=== PATIENT | female | born 1950 | race Caucasian/White ===

== ENCOUNTER 2019-10-01 11:29 | Emergency (ER) | payer MEDICARE, SELFPAY ==
[2019-10-01 11:41] VITALS: BP 120/81; PULSE 80; RESP 20; TEMP 36; O2SAT 97
--- NOTE | 2019-10-01 12:04 | ED.NAVMDI ---
HPI - Nausea/Vomiting/Diarrhea General Chief complaint: Nausea/Vomiting/Diarrhea Stated complaint: vomiting, abd cramping Time Seen by Provider: 10/01/19 11:49 History of Present Illness HPI Narrative: Nausea, vomiting, and diarrhea for the past 3 days. No abdominal pain. She has a h/o ileostomy. No weakness, numbness, dysuria, hemauria. Related Data Home Medications Medication Instructions Recorded Confirmed acetaminophen [Tylenol] 650 mg PO BID 10/01/19 gemfibrozil 600 mg PO DAILY 10/01/19 levothyroxine 50 mcg PO DAILY 10/01/19 omega 7-cei-gmk-fish oil [Fish Oil] 1 cap PO DAILY 10/01/19 omeprazole 40 mg PO DAILY 10/01/19 paroxetine HCl 20 mg PO QAM 10/01/19 rosuvastatin 10 mg PO DAILY 10/01/19 Allergies Allergy/AdvReac Type Severity Reaction Status Date / Time codeine AdvReac Rash Verified 10/01/19 11:48 Penicillins AdvReac Rash Verified 10/01/19 11:48 Review of Systems Review of Systems: All systems reviewed & are unremarkable except as noted in HPI and below Constitutional: Constitutional: Denies chills, Denies fever(s) and Denies weakness ENT: Denies sore throat Cardiovascular: Cardiovascular: Denies chest pain Respiratory: Respiratory: Denies dyspnea Gastrointestinal: Gastrointestinal: Denies abdominal pain, Reports diarrhea, Reports nausea and Reports vomiting PMFSH Past Medical History Medical History (Updated 10/01/19 @ 19:15 by West Moreno MD) Diabetes Surgical History Surgical History Ileostomy status Social History Social History Gender identity (if verbalized by the patient): Female Exam Const: General: no acute distress and alert Orientation/consciousness: patient oriented x3 HENMT: Head: normal to inspection Resp: Effort & Inspection: normal respiratory effort Auscultation: clear to auscultation bilaterally Cardio: Rate: regular rate Rhythm: regular rhythm GI: GI Palp: Yes Soft to palpation and No Tenderness to palpation present (GI) Other: ileostomy draining watery stool Skin: General skin exam: normal color Neuro: General: patient oriented x3 and moves all extremities Extrem: General: normal to inspection Course Vital Signs Vital signs: Vital Signs Temperature 36.0 C L 10/01/19 11:41 Pulse Rate 80 10/01/19 11:41 Respiratory Rate 20 10/01/19 11:41 Blood Pressure 120/81 10/01/19 11:41 Pulse Oximetry 97 10/01/19 11:41 Temperature 36.0 C L 10/01/19 11:41 Pulse Rate 83 10/01/19 17:23 Respiratory Rate 16 10/01/19 17:23 Blood Pressure 127/60 10/01/19 17:23 Pulse Oximetry 100 10/01/19 17:23 MDM - Nausea/Vomiting/Diarrhea MDM Narrative Medical decision making narrative: Feeling better with fluids and zofran. Tolerating PO. Creatinine elevated. She does not know her baseline, but she believes that this is not new. Differential Diagnosis Differential diagnosis: Likely gastroenteritis and dehydration Medical Records Attestation: I reviewed the patient's medical records. Lab Data Attestation: I reviewed the patient's lab results. Result diagrams: 10/01/19 12:35 10/01/19 12:35 Labs: Lab Results 10/01/19 10/01/19 10/01/19 Range/Units 12:35 12:35 12:35 WBC 9.2 (4.5-10.0) K/mm3 RBC 5.14 (4.2-5.4) M/mm3 Hgb 14.9 (12.0-15.0) g/dL Hct 46.0 (37.0-47.0) % MCV 89.5 (80-100) fl MCH 29.0 (26-34) pg MCHC 32.4 (32-36) g/dl RDW 13.1 (11.5-14.5) % Plt Count 357 (150-375) k/mm3 MPV 10.1 (7.4-10.4) fl Immature Gran % (Auto) 0.2 (0-0.5) % Neut % (Auto) 81.6 H (45.5-73.1) % Lymph % (Auto) 9.8 L (18.3-44.2) % Banner % (Auto) 7.2 (2.6-8.5) % Eos % (Auto) 0.9 (0-4.4) % Baso % (Auto) 0.3 (0.2-1.2) % Lymph # (Auto) 0.90 (0.9-3.2) K/mm3 Banner # (Auto) 0.7 H (0.1-0.6) K/mm3 Eos # (Auto) 0.1 (0-0.3) K/mm3 Baso # (Auto) 0.0 (0.0-0.1) K/mm3 A
[2019-10-01] MEDS: SODIUM CHLORIDE 0.9% IV 1,000 ML 999 ML IV CONT ×2 (12:42→14:27)
[2019-10-01] MEDS: ONDANSETRON INJ 4 MG/2 ML VIAL IV PUSH (12:43)
[2019-10-01 12:51] LABS: Basophils Percent Auto 0.3 % (0.2-1.2); Eosinophils Absolute Auto 0.1 K/mm3 (0-0.3); Eosinophils Percent Auto 0.9 % (0-4.4); Hemoglobin 14.9 g/dL (12.0-15.0); Immature Granulocyte Absolute 0.02 K/mm3 (0.00-0.031); Immature Granulocyte Percent A 0.2 % (0-0.5); Lymphocytes Percent Auto 9.8 % (18.3-44.2); Mean Corpuscular HGB Conc 32.4 g/dl (32-36); Mean Corpuscular Volume 89.5 fl (80-100); Mean Platelet Volume 10.1 fl (7.4-10.4); Monocytes Absolute Auto 0.7 K/mm3 (0.1-0.6); Monocytes Percent Auto 7.2 % (2.6-8.5); Neutrophils Absolute Auto 7.5 K/mm3 (1.3-6.7); Neutrophils Percent Auto 81.6 % (45.5-73.1); Platelet Count Result 357 k/mm3 (150-375); Red Blood Count 5.14 M/mm3 (4.2-5.4); Red Cell Distribution Width 13.1 % (11.5-14.5); White Blood Count 9.2 K/mm3 (4.5-10.0)
[2019-10-01 13:04] LABS: Alanine Aminotransferase 22 U/L (4-35); Albumin Level 5.5 g/dL (3.5-5.1); Alkaline Phosphatase 137 U/L (38-126); Aspartate Amino Transferase 38 U/L (14-36); Bilirubin,Total 0.5 mg/dL (0.2-1.3); Blood Urea Nitrogen 29 mg/dL (7-17); Calcium 10.5 mg/dL (8.4-10.2); Carbon Dioxide 14 mmol/L (22-30); Chloride 107 mmol/L (98-107); Estimated CRCL calculation 28 ml/min; Estimated Glomerular Filt Rate 28; Glucose 171 mg/dL (65-105); Potassium 4.4 mmol/L (3.4-5.0); Sodium 140 mmol/L (137-145)
[2019-10-01 13:14] LABS: Lipase 153 U/L (23-300)
[2019-10-01 16:14] LABS: Add Urine Microscopic? YES; Appearance Urine Clear (Clear); Bacteria Urine Trace /hpf; Bilirubin Urine Negative (Negative); Blood Urine Negative (Negative); Color Urine Yellow (Yellow); Glucose Urine UA Negative (Negative); Hyaline Casts Urine 30-49 /lpf; Ketones Urine Negative (Negative); Leukocyte Esterase Ur Negative LEU/UL (Negative); Mucus Urine Heavy /lpf; Nitrate Urine Negative (Negative); Protein Urine 2+ mg/dL (Negative); RBC Urine 0-2 /hpf (0-2); Specific Grav Ur 1.026 (1.001-1.035); Squamous Epithelial Cell Urine Occasional /hpf (Few); Urobilinogen Urine Negative mg/dL (<2.0); WBC Urine 0-3 /hpf
[2019-10-01 16:23] VITALS: BP 125/60; PULSE 80; RESP 18; O2SAT 98
[2019-10-01 17:23] VITALS: BP 127/60; PULSE 83; RESP 16; O2SAT 100
== END 2019-10-01 17:23 | disposition home or self-care (01) ==
PROVIDERS: Emergency Provider Emergency Medicine; PCP Family Medicine
DX: K52.9 Noninfective gastroenteritis and colitis, unspecified (principal); E11.9 Type 2 diabetes mellitus without complications; Z93.2 Ileostomy status
CPT/HCPCS: 36415; 80053; 81001; 83690; 85025; 96361; 96374; 99284; J2405; J7030

== ENCOUNTER 2020-01-10 22:10 | Emergency (ER) | payer MEDICARE, SELFPAY ==
[2020-01-10 22:12] VITALS: BP 110/61; PULSE 99; RESP 18; TEMP 36.4; O2SAT 96
[2020-01-10 22:41] VITALS: BP 125/65; PULSE 86
[2020-01-10 22:42] VITALS: BP 102/65; BP 109/81; PULSE 105; PULSE 94
--- NOTE | 2020-01-10 22:47 | ED.NAVMDI ---
HPI - Nausea/Vomiting/Diarrhea General Chief complaint: Nausea/Vomiting/Diarrhea Stated complaint: dehydration Time Seen by Provider: 01/10/20 22:46 History of Present Illness HPI Narrative: Nausea and vomiting since early this afternoon. Not able to tolerate anything PO. Associated with increased watery output from her ileostomy. She tried left over zofran that she had from a similar episode earlier this year, which gave her some relief. No fever, abdominal pain, sick contacts. Related Data Home Medications Medication Instructions Recorded Confirmed acetaminophen [Tylenol] 650 mg PO BID 10/01/19 levothyroxine 50 mcg PO DAILY 10/01/19 omega 0-cbj-huz-fish oil [Fish Oil] 1 cap PO DAILY 10/01/19 omeprazole 40 mg PO DAILY 10/01/19 paroxetine HCl 20 mg PO QAM 10/01/19 rosuvastatin 10 mg PO DAILY 10/01/19 cholecalciferol (vitamin D3) 01/10/20 [Vitamin D3] metformin 500 mg PO DAILY 01/10/20 Allergies Allergy/AdvReac Type Severity Reaction Status Date / Time codeine AdvReac Rash Verified 01/10/20 22:40 Penicillins AdvReac Rash Verified 01/10/20 22:40 Review of Systems Review of Systems: All systems reviewed & are unremarkable except as noted in HPI and below Constitutional: Constitutional: Denies fever(s) and Denies weakness ENT: Reports dizziness Cardiovascular: Cardiovascular: Denies chest pain Respiratory: Respiratory: Denies dyspnea Gastrointestinal: Gastrointestinal: Denies abdominal pain, Reports diarrhea, Reports nausea and Reports vomiting Genitourinary: Genitourinary: Denies dysuria Musculoskeletal: Musculoskeletal: Denies back pain Neurologic: Reports dizziness [facility] Past Medical History Medical History Diabetes Surgical History Surgical History Ileostomy status Social History Social History Gender identity (if verbalized by the patient): Female Exam Const: General: no acute distress and alert Nutritional Appearance: obese Orientation/consciousness: patient oriented x3 HENMT: Head: normal to inspection Resp: Effort & Inspection: normal respiratory effort Auscultation: clear to auscultation bilaterally Cardio: Rate: regular rate Rhythm: regular rhythm GI: GI Palp: Yes Soft to palpation and No Tenderness to palpation present (GI) Skin: General skin exam: normal color Neuro: General: patient oriented x3 and moves all extremities Speech: normal speech Extrem: General: normal to inspection Course Vital Signs Vital signs: Vital Signs Temperature 36.4 C L 01/10/20 22:12 Pulse Rate 99 01/10/20 22:12 Respiratory Rate 18 01/10/20 22:12 Blood Pressure 110/61 01/10/20 22:12 Pulse Oximetry 96 01/10/20 22:12 Temperature 36.6 C 01/11/20 01:53 Pulse Rate 87 01/11/20 01:53 Respiratory Rate 16 01/11/20 01:53 Blood Pressure 129/57 L 01/11/20 01:53 Pulse Oximetry 96 01/11/20 01:53 MDM - Nausea/Vomiting/Diarrhea MDM Narrative Medical decision making narrative: Feeling better after fluids and zofran. tolerating PO. Differential Diagnosis Differential diagnosis: Likely gastroenteritis and dehydration Medical Records Attestation: I reviewed the patient's medical records. Lab Data Attestation: I reviewed the patient's lab results. Result diagrams: 01/10/20 22:53 01/10/20 22:53 Labs: Lab Results 01/10/20 01/10/20 01/11/20 Range/Units 22:53 22:53 00:45 WBC 4.8 (4.5-10.0) K/mm3 RBC 4.87 (4.2-5.4) M/mm3 Hgb 14.6 (12.0-15.0) g/dL Hct 45.5 (37.0-47.0) % MCV 93.4 (80-100) fl MCH 30.0 (26-34) pg MCHC 32.1 (32-36) g/dl RDW 13.0 (11.5-14.5) % Plt Count 304 (150-375) k/mm3 MPV 9.8 (7.4-10.4) fl Immature Gran % (Auto) 0.2 (0-0.5) % Neut % (Auto) 64.5 (45.5-73.1) % Lymph % (Auto
--- NOTE | 2020-01-10 23:02 | PC.NURSE ---
Patient attempted to provide a urine specimen,unsuccessful, states I'm just too nauseous right now. Will attempt again after meds given.
[2020-01-10 23:03] LABS: Basophils Percent Auto 0.2 % (0.2-1.2); Eosinophils Absolute Auto 0.1 K/mm3 (0-0.3); Eosinophils Percent Auto 1.7 % (0-4.4); Hematocrit 45.5 % (37.0-47.0); Hemoglobin 14.6 g/dL (12.0-15.0); Immature Granulocyte Absolute 0.01 K/mm3 (0.00-0.031); Immature Granulocyte Percent A 0.2 % (0-0.5); Lymphocytes Absolute Auto 1.09 K/mm3 (0.9-3.2); Lymphocytes Percent Auto 22.8 % (18.3-44.2); Mean Corpuscular HGB Conc 32.1 g/dl (32-36); Mean Corpuscular Volume 93.4 fl (80-100); Mean Platelet Volume 9.8 fl (7.4-10.4); Monocytes Absolute Auto 0.5 K/mm3 (0.1-0.6); Monocytes Percent Auto 10.6 % (2.6-8.5); Neutrophils Absolute Auto 3.1 K/mm3 (1.3-6.7); Neutrophils Percent Auto 64.5 % (45.5-73.1); Platelet Count Result 304 k/mm3 (150-375); Red Blood Count 4.87 M/mm3 (4.2-5.4); White Blood Count 4.8 K/mm3 (4.5-10.0)
[2020-01-10] MEDS: ONDANSETRON INJ 4 MG/2 ML VIAL IV PUSH (23:04)
[2020-01-10] MEDS: SODIUM CHLORIDE 0.9% IV 1,000 ML 999 ML IV CONT (23:04)
[2020-01-10 23:18] LABS: Alanine Aminotransferase 32 U/L (4-35); Albumin Level 5.2 g/dL (3.5-5.1); Alkaline Phosphatase 138 U/L (38-126); Anion Gap 14 mmol/L (8-16); Aspartate Amino Transferase 56 U/L (14-36); Bilirubin,Total 0.9 mg/dL (0.2-1.3); Blood Urea Nitrogen 26 mg/dL (7-17); Calcium 10.4 mg/dL (8.4-10.2); Carbon Dioxide 21 mmol/L (22-30); Chloride 103 mmol/L (98-107); Estimated CRCL calculation 38 ml/min; Estimated Glomerular Filt Rate 41; Glucose 172 mg/dL (65-105); Lipase 233 U/L (23-300); Potassium 4.3 mmol/L (3.4-5.0); Sodium 138 mmol/L (137-145)
--- NOTE | 2020-01-10 23:28 | PC.NURSE ---
Patient attempted again for urine specimen, unsuccessful. Patient refusing straight cath at this time. Patient stating after more fluids infuse, will attempt again to provide urine specimen.
[2020-01-10 23:58] VITALS: BP 128/58; PULSE 83; RESP 16; O2SAT 95
--- NOTE | 2020-01-11 00:10 | PC.NURSE ---
Patient given water for PO challenge.
--- NOTE | 2020-01-11 00:39 | PC.NURSE ---
Patient tolerated PO challenge well. Patient assisted to the bathroom to provide a urine specimen.
[2020-01-11] MEDS: SODIUM CHLORIDE 0.9% IV 1,000 ML 999 ML IV CONT (00:48)
[2020-01-11 00:51] VITALS: BP 140/66; PULSE 85; RESP 18; O2SAT 95
[2020-01-11 01:18] LABS: Add Urine Microscopic? YES; Appearance Urine Cloudy (Clear); Bacteria Urine Trace /hpf; Bilirubin Urine Negative (Negative); Blood Urine Negative (Negative); Color Urine Yellow (Yellow); Glucose Urine UA Negative (Negative); Hyaline Casts Urine 15-19 /lpf; Ketones Urine Negative (Negative); Leukocyte Esterase Ur Trace LEU/UL (Negative); Mucus Urine Heavy /lpf; Nitrate Urine Negative (Negative); Protein Urine 2+ mg/dL (Negative); RBC Urine 0-2 /hpf (0-2); Specific Grav Ur 1.029 (1.001-1.035); Squamous Epithelial Cell Urine Occasional /hpf (Few); Urobilinogen Urine Negative mg/dL (<2.0)
[2020-01-11 01:53] VITALS: BP 129/57; PULSE 87; RESP 16; TEMP 36.6; O2SAT 96
== END 2020-01-11 01:56 | disposition home or self-care (01) ==
PROVIDERS: Emergency Provider Emergency Medicine; PCP Family Medicine
DX: K52.9 Noninfective gastroenteritis and colitis, unspecified (principal); E11.9 Type 2 diabetes mellitus without complications; Z93.2 Ileostomy status
CPT/HCPCS: 36415; 80053; 81001; 81025; 83690; 85025; 96361; 96374; 99284; J2405; J7030

== ENCOUNTER 2020-01-15 10:52 | Inpatient (IN) | payer MEDICARE, SELFPAY ==
[2020-01-15] VITALS (8 sets, daily range): BP systolic 82–159; BP diastolic 62–80; PULSE 58–122; RESP 12–23; TEMP 36.1–36.2; O2SAT 95–100; BMI 25.9
--- NOTE | ~2020-01-15 | CT_ITS ---
EXAMINATION: CT abdomen pelvis wo con DATE: 01/15/2020 12:57 INDICATION: Enteritis. Pancreatitis. TECHNIQUE: Computed tomography (CT) of the abdomen and pelvis was performed without intravenous contr ast. Automated exposure control and iterative reconstruction technique were employed. The dose-length product was 391.22 mGy-cm. COMPARISON: None FINDINGS: Small calcified nodules at the lingula and right middle lobe consistent with old granulomatous diseas e. Heart size is normal. No pericardial or pleural effusion. Cholecystectomy clips the gallbladder fo ssa. 11 mm low-attenuation cyst versus focal hepatic steatosis at the periphery of segment IVb of the liver. Spleen, pancreas, bilateral adrenal glands and kidneys are normal. Postoperative change of pr ior colectomy with right lower quadrant end ileostomy. Soft tissue density likely representing postop erative scarring surrounding a suture line and surgical clips in the presacral space. No bowel obstru ction. Bladder, uterus and bilateral adnexa are unremarkable. No free intraperitoneal gas or fluid. N o pathologically enlarged abdominal or pelvic lymphadenopathy. Partially visualized left total hip ar throplasty with intertrochanteric cerclage wire. Mild thoracolumbar dextrocurvature with severe spond ylosis at L2-L3. IMPRESSION: 1. No evident acute intra-abdominal/pelvic process. 2. Postoperative change of prior colectomy with right lower quadrant end ileostomy and soft tissue de nsities in the presacral space likely representing postoperative scarring although residual/recurrent malignancy cannot be excluded in the appropriate clinical setting and without prior imaging for comp arison. Reviewed, dictated and finalized at location A. IMPRESSION: 1. No evident acute intra-abdominal/pelvic process. 2. Postoperative change of prior colectomy with right lower quadrant end ileost jen and soft tissue densities in the presacral space likely representing postop erative scarring although residual/recurrent malignancy cannot be excluded in t he appropriate clinical setting and without prior imaging for comparison.
[2020-01-15 11:48] LABS: Basophils Absolute Auto 0.1 K/mm3 (0.0-0.1); Basophils Percent Auto 0.8 % (0.2-1.2); Eosinophils Absolute Auto 0.1 K/mm3 (0-0.3); Eosinophils Percent Auto 0.6 % (0-4.4); Hematocrit 44.8 % (37.0-47.0); Hemoglobin 15.3 g/dL (12.0-15.0); Immature Granulocyte Absolute 0.07 K/mm3 (0.00-0.031); Immature Granulocyte Percent A 0.7 % (0-0.5); Lymphocytes Absolute Auto 1.44 K/mm3 (0.9-3.2); Lymphocytes Percent Auto 13.6 % (18.3-44.2); Mean Corpuscular HGB Conc 34.2 g/dl (32-36); Mean Corpuscular Hemoglobin 30.6 pg (26-34); Mean Corpuscular Volume 89.6 fl (80-100); Mean Platelet Volume 10.2 fl (7.4-10.4); Monocytes Absolute Auto 1.2 K/mm3 (0.1-0.6); Monocytes Percent Auto 11.3 % (2.6-8.5); Neutrophils Absolute Auto 7.8 K/mm3 (1.3-6.7); Platelet Count Result 359 k/mm3 (150-375); Red Cell Distribution Width 12.4 % (11.5-14.5); White Blood Count 10.6 K/mm3 (4.5-10.0)
--- NOTE | 2020-01-15 11:51 | PC.NURSE ---
Lab called at this time and requests more urine to run sample due to not enough at this time.
[2020-01-15 12:01] LABS: Alanine Aminotransferase 43 U/L (4-35); Albumin Level 5.4 g/dL (3.5-5.1); Alkaline Phosphatase 193 U/L (38-126); Anion Gap 18 mmol/L (8-16); Aspartate Amino Transferase 46 U/L (14-36); Bilirubin,Total 0.7 mg/dL (0.2-1.3); Blood Urea Nitrogen 54 mg/dL (7-17); Calcium 11.3 mg/dL (8.4-10.2); Carbon Dioxide 15 mmol/L (22-30); Chloride 102 mmol/L (98-107); Estimated CRCL calculation 34 ml/min; Estimated Glomerular Filt Rate 35; Glucose 171 mg/dL (65-105); Potassium 4.6 mmol/L (3.4-5.0); Sodium 135 mmol/L (137-145)
[2020-01-15 12:10] LABS: Lipase 3043 U/L (23-300)
[2020-01-15] MEDS: SODIUM CHLORIDE 0.9% IV 1,000 ML 999 ML IV CONT (12:59)
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
[2020-01-15 14:43] LABS: Add Urine Microscopic? YES; Appearance Urine Clear (Clear); Bilirubin Urine Negative (Negative); Blood Urine 1+ (Negative); Color Urine Yellow (Yellow); Glucose Urine UA Negative (Negative); Hyaline Casts Urine 30-49 /lpf; Ketones Urine Trace mg/dL (Negative); Leukocyte Esterase Ur Negative LEU/UL (Negative); Mucus Urine Rare /lpf; Nitrate Urine Negative (Negative); Protein Urine 2+ mg/dL (Negative); RBC Urine 0-2 /hpf (0-2); Specific Grav Ur 1.018 (1.001-1.035); Urobilinogen Urine Negative mg/dL (<2.0); WBC Urine 0-3 /hpf
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
--- NOTE | 2020-01-15 17:30 | ADMGEN ---
This patient, Mariya Villanueva, was admitted to Medical Room 249-01. Patient/family oriented to hospital policies and general routines including ID bracelet, bed and alarms, visiting hours, pain management, procedures, bathroom and other care routines, personal items, smoking policy, room service/diet, and visiting hours. Valuables list has been completed. Information on how to activate the Rapid Response Team has been discussed. Patient/Family are encouraged to report perceived risks to care and to ask questions if they do not understand what they are told or what they should do.
[2020-01-15] MEDS: SODIUM CHLORIDE 0.9% IV 1,000 ML 125 ML IV CONT (17:49)
[2020-01-15 21:48] LABS: Anion Gap 11 mmol/L (8-16); Blood Urea Nitrogen 40 mg/dL (7-17); Calcium 9.6 mg/dL (8.4-10.2); Carbon Dioxide 18 mmol/L (22-30); Chloride 106 mmol/L (98-107); Creatine Kinase 158 U/L (30-135); Estimated CRCL calculation 42 ml/min; Estimated Glomerular Filt Rate 55; Glucose 125 mg/dL (65-105); Magnesium 1.6 mg/dL (1.6-2.3); Potassium 3.9 mmol/L (3.4-5.0); Sodium 135 mmol/L (137-145)
[2020-01-15 21:51] LABS: Lipase 3775 U/L (23-300)
[2020-01-15 22:41] LABS: Hemoglobin A1C 5.8 % (<5.7)
[2020-01-15 22:43] LABS: Lactic Acid Reflex 0.6 mmol/L (0.7-2.1)
[2020-01-15 23:33] LABS: Glucose Point of Care 126 (65-105)
[2020-01-15 23:51] LABS: Free T4 Free Thyroxine Reflex 0.86 ng/dL (0.78-2.19)
[2020-01-15 23:53] LABS: IFOB Positive Control Positive; Immunochemical Fecal Occult Bl Negative (N)
[2020-01-16] MEDS: SODIUM CHLORIDE 0.9% IV 1,000 ML 125 ML IV CONT ×3 (02:00→20:04)
[2020-01-16 03:28] LABS: Total Triiodothyronine (T3) 0.74 NG/ML (0.97-1.69)
[2020-01-16 05:39] LABS: Basophils Percent Auto 0.5 % (0.2-1.2); Eosinophils Absolute Auto 0.1 K/mm3 (0-0.3); Eosinophils Percent Auto 2.2 % (0-4.4); Hematocrit 33.6 % (37.0-47.0); Immature Granulocyte Absolute 0.04 K/mm3 (0.00-0.031); Immature Granulocyte Percent A 0.7 % (0-0.5); Lymphocytes Absolute Auto 1.56 K/mm3 (0.9-3.2); Lymphocytes Percent Auto 28.2 % (18.3-44.2); Mean Corpuscular HGB Conc 32.7 g/dl (32-36); Mean Corpuscular Hemoglobin 30.5 pg (26-34); Mean Corpuscular Volume 93.1 fl (80-100); Mean Platelet Volume 10.5 fl (7.4-10.4); Monocytes Absolute Auto 0.7 K/mm3 (0.1-0.6); Monocytes Percent Auto 12.3 % (2.6-8.5); Neutrophils Absolute Auto 3.1 K/mm3 (1.3-6.7); Neutrophils Percent Auto 56.1 % (45.5-73.1); Platelet Count Result 218 k/mm3 (150-375); Red Blood Count 3.61 M/mm3 (4.2-5.4); Red Cell Distribution Width 12.3 % (11.5-14.5); White Blood Count 5.5 K/mm3 (4.5-10.0)
[2020-01-16 05:59] LABS: Alanine Aminotransferase 24 U/L (4-35); Alkaline Phosphatase 108 U/L (38-126); Anion Gap 10 mmol/L (8-16); Aspartate Amino Transferase 30 U/L (14-36); Bilirubin,Total 0.3 mg/dL (0.2-1.3); Blood Urea Nitrogen 34 mg/dL (7-17); Calcium 9.1 mg/dL (8.4-10.2); Carbon Dioxide 16 mmol/L (22-30); Chloride 109 mmol/L (98-107); Estimated CRCL calculation 46 ml/min; Estimated Glomerular Filt Rate > 60; Glucose 111 mg/dL (65-105); Potassium 3.7 mmol/L (3.4-5.0); Sodium 135 mmol/L (137-145)
[2020-01-16 06:00] VITALS: BP 122/50; PULSE 72; RESP 20; TEMP 37; O2SAT 98
[2020-01-16] MEDS: LEVOTHYROXINE SODIUM 50 MCG TABLET PO (06:30)
[2020-01-16 06:34] LABS: Glucose Point of Care 103 (65-105)
[2020-01-16 07:24] LABS: Lipase 4072 U/L (23-300)
[2020-01-16] MEDS: PANTOPRAZOLE 40 MG TABLET PO ×2 (08:18→20:04)
[2020-01-16] MEDS: PARoxetine 20 MG TABLET PO (08:18)
--- NOTE | 2020-01-16 11:09 | PM.IMPN ---
Progress Note: A&P Assessment and Plan (1) Pancreatitis: Code(s): K85.90 - Acute pancreatitis without necrosis or infection, unspecified Status: Acute Assessment and Plan: She denied have any abdominal pain or epigastric pain but did have nausea, vomiting, and diarrhea. Lipase markedly elevated at 3775 at presentation. Increased today to 4072. She is s/p cholecystectomy approximately 10 years ago. LFTs within normal limits. Denies frequent alcohol use, last drink was 1 glass of wine several weeks ago. No leukocytosis. Afebrile. She was NPO overnight. Feeling much better today and would like to try clear liquids. Monitor for symptoms and return to NPO if worsened abdominal pain, nausea, or vomiting. Supportive care with IV fluids and analgesics as needed Trend lipase, check triglycerides (2) Dehydration: Code(s): E86.0 - Dehydration Status: Acute Assessment and Plan: Secondary to poor appetite due to ongoing nausea, vomiting, and increased ostomy output. Related to pancreatitis as above. Continue gentle IV fluid rehydration. Patient appears euvolemic on exam today. (3) Hypotension: Qualifiers: Hypotension type: hypotension due to hypovolemia Qualified Code(s): I95.89 - Other hypotension; E86.1 - Hypovolemia Code(s): I95.9 - Hypotension, unspecified Status: Acute Assessment and Plan: blood pressure low at 80 2/73 upon presentation. This is secondary to dehydration and volume depletion. She is not on any antihypertensives. BP has improved with IV fluids. BP reviewed today and stable in the 120s systolic. Continue IV fluids as above monitor blood pressure daily (4) Hypothyroidism: Code(s): E03.9 - Hypothyroidism, unspecified Status: Acute Assessment and Plan: TSH elevated at 8.2, T3 mildly decreased, T4 wnl. she reports she had not taken her levothyroxine and several days secondary to nausea and vomiting. Resume p.o. levothyroxine at home dose. Will not make any dose adjustments at this time. (5) Type 2 diabetes mellitus: Code(s): E11.9 - Type 2 diabetes mellitus without complications Status: Acute Assessment and Plan: A1c is 5.8. She is on metformin at home. Blood sugars reviewed and are well controlled. Continue sliding scale insulin, Accu-Cheks, and hypoglycemic protocol. Hold metformin (6) Chronic kidney disease, stage 3: Code(s): N18.3 - Chronic kidney disease, stage 3 (moderate) Status: Acute Assessment and Plan: Patient reports chronic, mild renal insufficiency. creatinine 1.5 at presentation and has improved to 0.9 today with IV fluids. Suspect acute on chronic given dehydration. Continue IV fluids and monitor renal function. Renally dose medications and avoid nephrotoxic agents (7) Ulcerative colitis: Code(s): K51.90 - Ulcerative colitis, unspecified, without complications Status: Acute Assessment and Plan: Status post right colectomy with ileostomy in 1970. CT of the abdomen and pelvis At presentation showed soft tissue densities which may be postoperative scarring however we do not have any prior imaging for comparison. she noted increased output from ileostomy the past several days but believes this is improving. request have been submitted to obtain prior records gastroenterology has been consulted recommendations are appreciated (8) Low bicarbonate level: Code(s): E87.8 - Other disorders of electrolyte and fluid balance, not elsewhere classified Status: Acute Assessment and Plan: No anion gap. Most likely related to GI loss from ongoing diarrhea. No prior history of pancreatitis and thus fistula less likely. Lactic is within normal limits. Levels remain low, but suspect improvement with time as N/V has resolved and ileostomy output has lessened. Monitor bicarbonate levels at this
[2020-01-16 11:34] LABS: Glucose Point of Care 110 (65-105)
[2020-01-16 13:22] VITALS: BP 115/61; PULSE 73; RESP 18; TEMP 36.4; O2SAT 99
--- NOTE | 2020-01-16 13:30 | WPDGICN ---
Assessment and Plan Assessment and plan (1) Pancreatitis: Code(s): K85.90 - Acute pancreatitis without necrosis or infection, unspecified Status: Acute Assessment and Plan: denies previous episode, no abdominal pain and she is feeling better. Still does not want to try to eat, probably tomorrow will start liquid diet and advance as tolerated she already had cholecystectomy, on admission only mild elevated transaminases but repeat normalized, also normal bili, CT scan normal bile duct size. continue with supportive care (2) Nausea and vomiting in adult: Code(s): R11.2 - Nausea with vomiting, unspecified Status: Acute Assessment and Plan: antiemetics prn, start liquid diet when she feels like it (3) Dehydration: Code(s): E86.0 - Dehydration Status: Acute Assessment and Plan: improved (4) Ulcerative colitis: Code(s): K51.90 - Ulcerative colitis, unspecified, without complications Status: Acute Assessment and Plan: colectomy more than 40 years ago with ileostomy she is not on any treatment (5) Chronic kidney disease, stage 3: Code(s): N18.3 - Chronic kidney disease, stage 3 (moderate) Status: Acute (6) Ileostomy in place: Code(s): Z93.2 - Ileostomy status Status: Acute Assessment and Plan: had more output that caused dehydration. continue to monitor GI Consult Note Consult date/time: 01/16/20 13:30 Reason for consult: diarrhea, N/V HPI: Mariya Villanueva is a 69 year old female with history of type 2 diabetes mellitus, chronic kidney disease creat 1-1.5, GERD, ulcerative colitis that required colectomy with ileostomy about 40 years ago when she had colon perforation, also history of cholecystectomy. She came initially to the emergency department on January 09 because nausea, vomiting and more output through her ostomy, diagnosed with dehydration and gastroenteritis, treated with antiemetics and IV fluids. She went back home but started feeling sick again with more nausea, vomiting, and increased ileostomy output again, also generalized weakness and feeling lightheaded. Denies any abdominal pain. Blood work consistent with dehydration, also was hemoconcentrated with hb 15.3, creat 1.5 (after fluids 0.9), also lipase 4000 and diagnosed with pancreatitis, CT a/p no acute findings other than postoperative change of prior colectomy with right lower quadrant end ileostomy. Now she is npo and feeling better. Review of Systems Constitutional: Constitutional: Reports lethargy Eyes: Eyes: Denies blurry vision ENT: Reports Normal hearing present, Denies headache(s) and Denies neck pain Cardiovascular: Cardiovascular: Denies chest pain and Denies dyspnea Respiratory: Respiratory: Denies dyspnea Gastrointestinal: Gastrointestinal: Reports nausea and Reports vomiting Genitourinary: Genitourinary: Denies dysuria Musculoskeletal: Musculoskeletal: Denies neck pain Integumentary/Breasts: Skin/Breast: Denies dry skin Neurologic: Reports Normal hearing present, Denies headache(s) and Denies weakness Psychiatric: Psychiatric: Denies anxiety Endocrine: Endocrine: Denies change in body appearance Hematologic/Lymphatic: Hematologic/Lymphatic: Denies easy bleeding Allergic/Immunologic: Allergic/Immunologic: Denies urticaria PMFSH Past Medical History Medical History (Updated 01/16/20 @ 14:34 by Alberto Rowe MD) Chronic kidney disease, stage 3 Gastroesophageal reflux disease Hypothyroidism Ileostomy in place Nausea and vomiting in adult Obstructive sleep apnea on CPAP Type 2 diabetes mellitus Ulcerative colitis Surgical History Surgical History (Updated 01/15/20 @ 20:41 by Avril Quispe PA-C) History of cataract extraction History of cholecystectomy History of left hip replacement History of left knee replacement History of partial colectomy (~1970) Right hemicolectomy with ileostomy for treatm
[2020-01-16 17:00] LABS: Glucose Point of Care 106 (65-105)
[2020-01-16 20:22] LABS: Glucose Point of Care 87 (65-105)
[2020-01-16 21:38] VITALS: BP 129/53; PULSE 79; RESP 16; TEMP 36.4; O2SAT 98
[2020-01-17 06:00] VITALS: BP 116/52; PULSE 70; RESP 16; TEMP 36.4; O2SAT 97
[2020-01-17 06:08] LABS: Alanine Aminotransferase 20 U/L (4-35); Albumin Level 3.6 g/dL (3.5-5.1); Alkaline Phosphatase 90 U/L (38-126); Anion Gap 5 mmol/L (8-16); Aspartate Amino Transferase 27 U/L (14-36); Bilirubin,Total 0.2 mg/dL (0.2-1.3); Blood Urea Nitrogen 14 mg/dL (7-17); Calcium 8.7 mg/dL (8.4-10.2); Carbon Dioxide 21 mmol/L (22-30); Chloride 112 mmol/L (98-107); Cholesterol 136 mg/dL (0-200); Estimated CRCL calculation 58 ml/min; Estimated Glomerular Filt Rate > 60; Glucose 96 mg/dL (65-105); HDL Direct 29 mg/dL; Magnesium 1.6 mg/dL (1.6-2.3); Potassium 3.8 mmol/L (3.4-5.0); Sodium 138 mmol/L (137-145); Triglycerides 161 mg/dL (<150)
[2020-01-17 06:09] LABS: Basophils Percent Auto 0.5 % (0.2-1.2); Eosinophils Absolute Auto 0.1 K/mm3 (0-0.3); Hematocrit 30.6 % (37.0-47.0); Hemoglobin 9.9 g/dL (12.0-15.0); Immature Granulocyte Absolute 0.02 K/mm3 (0.00-0.031); Immature Granulocyte Percent A 0.5 % (0-0.5); Lymphocytes Absolute Auto 1.43 K/mm3 (0.9-3.2); Lymphocytes Percent Auto 35.8 % (18.3-44.2); Mean Corpuscular HGB Conc 32.4 g/dl (32-36); Mean Corpuscular Hemoglobin 29.6 pg (26-34); Mean Corpuscular Volume 91.6 fl (80-100); Mean Platelet Volume 10.1 fl (7.4-10.4); Monocytes Absolute Auto 0.4 K/mm3 (0.1-0.6); Neutrophils Percent Auto 50.2 % (45.5-73.1); Platelet Count Result 179 k/mm3 (150-375); Red Blood Count 3.34 M/mm3 (4.2-5.4); Red Cell Distribution Width 12.3 % (11.5-14.5)
[2020-01-17 06:11] LABS: LDL Cholesterol Direct 70 mg/dL; Lipase 2224 U/L (23-300)
[2020-01-17] MEDS: LEVOTHYROXINE SODIUM 50 MCG TABLET PO (06:34)
[2020-01-17 07:51] LABS: Glucose Point of Care 92 (65-105)
[2020-01-17] MEDS: PANTOPRAZOLE 40 MG TABLET PO ×2 (08:10→20:00)
[2020-01-17] MEDS: PARoxetine 20 MG TABLET PO (08:10)
[2020-01-17] MEDS: ENOXAPARIN 30 MG/0.3 ML SYRINGE SUB-Q (08:11)
[2020-01-17 11:32] LABS: Glucose Point of Care 95 (65-105)
--- NOTE | 2020-01-17 12:11 | PM.IMPN ---
Progress Note: A&P Assessment and Plan (1) Pancreatitis: Code(s): K85.90 - Acute pancreatitis without necrosis or infection, unspecified Status: Acute Assessment and Plan: She denied have any abdominal pain or epigastric pain but did have nausea, vomiting, and diarrhea. Lipase markedly elevated at 3775 at presentation; decreased to 2224. She is s/p cholecystectomy approximately 10 years ago. LFTs within normal limits. Triglycerides mildly elevated at 161. Denies frequent alcohol use, last drink was 1 glass of wine several weeks ago. No leukocytosis (4.0k today). Afebrile. Tolerating CLD thus far; wishing to advance diet. Discussed case with Dr. Moya Will advance diet as tolerated; if continued clinical improvement, will consider discharge in 1-2 days Will stop IV fluids as she is tolerating PO Continue analgesics as needed Trend lipase (2) Dehydration: Code(s): E86.0 - Dehydration Status: Acute Assessment and Plan: Secondary to poor appetite due to ongoing nausea, vomiting, and increased ostomy output. Related to pancreatitis as above. Patient appears euvolemic on exam today. D/c IV fluids as above (3) Hypotension: Qualifiers: Hypotension type: hypotension due to hypovolemia Qualified Code(s): I95.89 - Other hypotension; E86.1 - Hypovolemia Code(s): I95.9 - Hypotension, unspecified Status: Acute Assessment and Plan: blood pressure low at 82/73 upon presentation. This is secondary to dehydration and volume depletion. She is not on any antihypertensives. BP has improved with IV fluids. BP reviewed today and stable in the 110s systolic. Will d/c IV fluids as above monitor blood pressure daily (4) Hypothyroidism: Code(s): E03.9 - Hypothyroidism, unspecified Status: Acute Assessment and Plan: TSH elevated at 8.2, T3 mildly decreased, T4 wnl. she reports she had not taken her levothyroxine and several days secondary to nausea and vomiting. Resume p.o. levothyroxine at home dose. Will not make any dose adjustments at this time. (5) Type 2 diabetes mellitus: Code(s): E11.9 - Type 2 diabetes mellitus without complications Status: Acute Assessment and Plan: A1c is 5.8. She is on metformin at home. Blood sugars reviewed and are well controlled. Continue sliding scale insulin, Accu-Cheks, and hypoglycemic protocol. Hold metformin (6) Chronic kidney disease, stage 3: Code(s): N18.3 - Chronic kidney disease, stage 3 (moderate) Status: Acute Assessment and Plan: Patient reports chronic, mild renal insufficiency. creatinine 1.5 at presentation and has improved to 0.8 today with IV fluids. Suspect acute on chronic given dehydration. Will stop IV fluids as above monitor renal function. Renally dose medications and avoid nephrotoxic agents (7) Ulcerative colitis: Code(s): K51.90 - Ulcerative colitis, unspecified, without complications Status: Acute Assessment and Plan: Status post right colectomy with ileostomy in 1970. CT of the abdomen and pelvis At presentation showed soft tissue densities which may be postoperative scarring however we do not have any prior imaging for comparison. she noted increased output from ileostomy the past several days but believes this is improving/resolved today request have been submitted to obtain prior records gastroenterology has been consulted recommendations are appreciated (8) Low bicarbonate level: Code(s): E87.8 - Other disorders of electrolyte and fluid balance, not elsewhere classified Status: Acute Assessment and Plan: No a
[2020-01-17 12:47] LABS: Glucose Point of Care 115 (65-105)
--- NOTE | 2020-01-17 12:47 | WPDGIPROGNO ---
Progress Note: A&P Assessment and Plan (1) Pancreatitis: Code(s): K85.90 - Acute pancreatitis without necrosis or infection, unspecified Status: Acute Assessment and Plan: she is doing much better, no more nausea, no pain will advance diet and if she is tolerating then can go home tomorrow lipase 2k TG levels normal, also normal liver enzymes (2) Nausea and vomiting in adult: Code(s): R11.2 - Nausea with vomiting, unspecified Status: Acute Assessment and Plan: resolved, will advance diet (3) Ulcerative colitis: Code(s): K51.90 - Ulcerative colitis, unspecified, without complications Status: Acute Assessment and Plan: colectomy with ileostomy years ago (4) Ileostomy in place: Code(s): Z93.2 - Ileostomy status Status: Acute (5) Dehydration: Code(s): E86.0 - Dehydration Status: Acute Assessment and Plan: resolved Subjective Date/time seen: 01/17/20 12:47 Interval history: no more nausea, tolerating liquid diet. Normal output throught ostomy, back to her baseline. Review of Systems Review of Systems: All systems reviewed & are unremarkable except as noted in HPI and below Exam Const: General: comfortable, no acute distress and alert Nutritional Appearance: obese Orientation/consciousness: patient oriented x3 HENMT: Head: normal to inspection General nose exam: Normal nares present Eyes: General: appearance normal, both eyes and all related structures Neck: Neck: supple Resp: Effort & Inspection: normal respiratory effort Auscultation: clear to auscultation bilaterally Cardio: Rate: regular rate Rhythm: regular rhythm GI: GI Palp: Yes Soft to palpation, No Tenderness to palpation present (GI) and No Guarding due to palpation present (GI) Auscultation: normal bowel sounds Other: ostomy right side, stool in bag Skin: General skin exam: normal color Neuro: General: patient oriented x3 and moves all extremities Speech: normal speech Extrem: General: normal to inspection Psych: Affect: normal affect Objective Data Vital Signs Vital Signs: Vital Signs - 24 hr 01/16/20 13:22 01/16/20 21:38 01/17/20 06:00 Temperature 97.5 F L 97.6 F 97.6 F Pulse Rate 73 79 70 Respiratory Rate 18 16 16 Blood Pressure 115/61 129/53 L 116/52 L Pulse Oximetry 99 98 97 Intake/Output Intake/Output: Intake & Output 01/14/20 01/15/20 01/16/20 01/17/20 23:59 23:59 23:59 23:59 Intake Total 1460 4100 510 Output Total 1875 850 Balance 1460 2225 -340 Meds/Results Medications: Active Medications Generic Name Dose Route Start Last Admin Trade Name Freq PRN Reason Stop Dose Admin Acetaminophen 650 mg 01/17/20 07:13 Tylenol Tablet PO Q6H PRN Pain or Fever Dextrose 12.5 gm 01/15/20 20:34 Dextrose 50% Syringe IV PUSH PRN PRN Hypoglycemia Protocol Enoxaparin Sodium 30 mg 01/17/20 09:00 01/17/20 08:11 Lovenox SUB-Q 30 mg DAILY GAUTAM Administration Glucagon 1 mg 01/15/20 20:34 Glucagon For Inj IM PRN PRN Hypoglycemia Protocol Glucose 15 gm 01/15/20 20:34 Glutose 15 PO PRN PRN Hypoglycemia Protocol Dextrose 1,000 mls @ 100 mls/hr 01/15/20 20:34 Dextrose 5% 1,000 Ml IVPB PRN PRN Hypoglycemia Protocol Insulin Aspart 2 - 5 units 01/16/20 08:00 01/17/20 12:00 Novolog SUB-Q Not Given TIDWM GAUTAM Protocol Levothyroxine Sodium 50 mcg 01/16/20 06:30 01/17/20 06:34 Synthroid PO 50 mcg DAILY@0630 GAUTAM Administration Ondansetron HCl 4 mg 01/15/20 14:51 Zofran Inj IV PUSH Q4H PRN Nausea Pantoprazole Sodium 40 mg 01/16/20 09:00 01/17/20 08:10 Protonix PO 40 mg Q12HR GAUTAM Administration Paroxetine HCl 20 mg 01/16/20 09:00 01/17/20 08:10 Paxil PO 20 mg QAM GAUTAM Administration Radiology Results: ITS Impressions Abdomen/Pelvis CT 01/15/20 12:58
[2020-01-17 14:00] VITALS: BP 107/46; PULSE 72; RESP 18; TEMP 36.7; O2SAT 98
[2020-01-17 16:31] LABS: Glucose Point of Care 104 (65-105)
[2020-01-17 21:14] LABS: Glucose Point of Care 124 (65-105)
[2020-01-17 21:27] VITALS: BP 138/55; PULSE 72; RESP 16; TEMP 37.2; O2SAT 97
[2020-01-18] MEDS: LEVOTHYROXINE SODIUM 50 MCG TABLET PO (05:36)
[2020-01-18 06:00] VITALS: BP 136/63; PULSE 78; RESP 16; TEMP 36.9; O2SAT 96
[2020-01-18 06:13] LABS: Hematocrit 35.3 % (37.0-47.0); Hemoglobin 11.9 g/dL (12.0-15.0); Mean Corpuscular HGB Conc 33.7 g/dl (32-36); Mean Corpuscular Hemoglobin 30.7 pg (26-34); Mean Platelet Volume 10.1 fl (7.4-10.4); Platelet Count Result 253 k/mm3 (150-375); Red Blood Count 3.88 M/mm3 (4.2-5.4); Red Cell Distribution Width 12.3 % (11.5-14.5); White Blood Count 5.7 K/mm3 (4.5-10.0)
[2020-01-18 06:36] LABS: Alanine Aminotransferase 24 U/L (4-35); Albumin Level 4.4 g/dL (3.5-5.1); Alkaline Phosphatase 106 U/L (38-126); Anion Gap 9 mmol/L (8-16); Aspartate Amino Transferase 30 U/L (14-36); Bilirubin,Total 0.3 mg/dL (0.2-1.3); Blood Urea Nitrogen 12 mg/dL (7-17); Calcium 9.8 mg/dL (8.4-10.2); Carbon Dioxide 22 mmol/L (22-30); Chloride 107 mmol/L (98-107); Estimated CRCL calculation 58 ml/min; Estimated Glomerular Filt Rate > 60; Glucose 126 mg/dL (65-105); Lipase 1770 U/L (23-300); Magnesium 1.4 mg/dL (1.6-2.3); Potassium 3.7 mmol/L (3.4-5.0); Sodium 138 mmol/L (137-145)
[2020-01-18 07:36] LABS: Glucose Point of Care 118 (65-105)
[2020-01-18] MEDS: PANTOPRAZOLE 40 MG TABLET PO (09:16)
[2020-01-18] MEDS: ENOXAPARIN 30 MG/0.3 ML SYRINGE SUB-Q (09:16)
[2020-01-18] MEDS: PARoxetine 20 MG TABLET PO (09:17)
--- NOTE | 2020-01-18 10:00 | WPDGIPROGNO ---
Progress Note: A&P Assessment and Plan (1) Pancreatitis: Code(s): K85.90 - Acute pancreatitis without necrosis or infection, unspecified Status: Acute Assessment and Plan: now she is asymptomatic, no more nausea, no pain ok to go home with low fat diet (2) Nausea and vomiting in adult: Code(s): R11.2 - Nausea with vomiting, unspecified Status: Acute Assessment and Plan: resolved, tolerating diet (3) Ulcerative colitis: Code(s): K51.90 - Ulcerative colitis, unspecified, without complications Status: Acute Assessment and Plan: colectomy with ileostomy years ago (4) Ileostomy in place: Code(s): Z93.2 - Ileostomy status Status: Acute (5) Dehydration: Code(s): E86.0 - Dehydration Status: Acute Assessment and Plan: resolved Subjective Date/time seen: 01/18/20 11:03 Interval history: tolerated diet, no nausea or pain. she is going home later today Review of Systems Review of Systems: All systems reviewed & are unremarkable except as noted in HPI and below Exam Const: General: comfortable, no acute distress and alert Nutritional Appearance: obese Orientation/consciousness: patient oriented x3 HENMT: Head: normal to inspection General nose exam: Normal nares present Eyes: General: appearance normal, both eyes and all related structures Neck: Neck: supple Resp: Effort & Inspection: normal respiratory effort Auscultation: clear to auscultation bilaterally Cardio: Rate: regular rate Rhythm: regular rhythm GI: GI Palp: Yes Soft to palpation, No Tenderness to palpation present (GI) and No Guarding due to palpation present (GI) Auscultation: normal bowel sounds Other: ostomy right side, stool in bag Skin: General skin exam: normal color Neuro: General: patient oriented x3 and moves all extremities Speech: normal speech Extrem: General: normal to inspection Psych: Affect: normal affect Objective Data Vital Signs Vital Signs: Vital Signs - 24 hr 01/17/20 14:00 01/17/20 21:27 01/18/20 06:00 Temperature 98.1 F 98.9 F 98.5 F Pulse Rate 72 72 78 Respiratory Rate 18 16 16 Blood Pressure 107/46 L 138/55 L 136/63 Pulse Oximetry 98 97 96 Intake/Output Intake/Output: Intake & Output 09/17/20 01/16/20 01/17/20 01/18/20 23:59 23:59 23:59 23:59 Intake Total 1460 4100 2310 590 Output Total 1875 1700 1000 Balance 1460 2225 610 -410 Meds/Results Medications: Active Medications Generic Name Dose Route Start Last Admin Trade Name Freq PRN Reason Stop Dose Admin Acetaminophen 650 mg 01/17/20 07:13 Tylenol Tablet PO Q6H PRN Pain or Fever Dextrose 12.5 gm 01/15/20 20:34 Dextrose 50% Syringe IV PUSH PRN PRN Hypoglycemia Protocol Enoxaparin Sodium 30 mg 01/17/20 09:00 01/18/20 09:16 Lovenox SUB-Q 30 mg DAILY GAUTAM Administration Glucagon 1 mg 01/15/20 20:34 Glucagon For Inj IM PRN PRN Hypoglycemia Protocol Glucose 15 gm 01/15/20 20:34 Glutose 15 PO PRN PRN Hypoglycemia Protocol Dextrose 1,000 mls @ 100 mls/hr 01/15/20 20:34 Dextrose 5% 1,000 Ml IVPB PRN PRN Hypoglycemia Protocol Insulin Aspart 2 - 5 units 01/16/20 08:00 01/18/20 07:55 Novolog SUB-Q Not Given TIDWM GAUTAM Protocol Levothyroxine Sodium 50 mcg 01/16/20 06:30 01/18/20 05:36 Synthroid PO 50 mcg DAILY@0630 GAUTAM Administration Ondansetron HCl 4 mg 01/15/20 14:51 Zofran Inj IV PUSH Q4H PRN Nausea Pantoprazole Sodium 40 mg 01/16/20 09:00 01/18/20 09:16 Protonix PO 40 mg Q12HR GAUTAM Administration Paroxetine HCl 20 mg 01/16/20 09:00 01/18/20 09:17 Paxil PO 20 mg QAM GAUTAM Administration Radiology Results: ITS Impressions Abdomen/Pelvis CT 01/15/20 12:58 IMPRESSION: 1. No evident acute intra-abdominal/pelvic process. 2. Postoperative change of prior colectomy with
--- NOTE | 2020-01-18 10:29 | PM.DS ---
DS: Admitting Diagnosis Admitting Diagnosis Admitting Diagnosis: pancreatitis/dehydration DS: Discharge Diagnosis Discharge Diagnosis (1) Pancreatitis: Code(s): K85.90 - Acute pancreatitis without necrosis or infection, unspecified Status: Acute Assessment and Plan: She denied have any abdominal pain or epigastric pain but did have nausea, vomiting, and diarrhea. Lipase markedly elevated at 3775 at presentation; decreased to 1770 today. She is s/p cholecystectomy approximately 10 years ago. LFTs within normal limits. Triglycerides mildly elevated at 161. Denies frequent alcohol use, last drink was 1 glass of wine several weeks ago. No leukocytosis (5.7k today). Afebrile. Tolerating diabetic diet overnight and this morning. Per GI note, okay for discharge given that she is tolerating her diet D/c today back home Will recommend low fat, low residue diet for 1 week then slowly advance to her normal diet F/u with PCP after discharge and/or Dr. Moya as needed (2) Dehydration: Code(s): E86.0 - Dehydration Status: Acute Assessment and Plan: Secondary to poor appetite due to ongoing nausea, vomiting, and increased ostomy output. Related to pancreatitis as above. Patient appears euvolemic on exam today. (3) Hypotension: Qualifiers: Hypotension type: hypotension due to hypovolemia Qualified Code(s): I95.89 - Other hypotension; E86.1 - Hypovolemia Code(s): I95.9 - Hypotension, unspecified Status: Acute Assessment and Plan: blood pressure low at 82/73 upon presentation. This is secondary to dehydration and volume depletion. She is not on any antihypertensives. BP has improved with IV fluids. BP reviewed today and stable in the 130s systolic. f/u with PCP (4) Hypothyroidism: Code(s): E03.9 - Hypothyroidism, unspecified Status: Acute Assessment and Plan: TSH elevated at 8.2, T3 mildly decreased, T4 wnl. she reports she had not taken her levothyroxine and several days secondary to nausea and vomiting. Continue p.o. levothyroxine at home dose. Will not make any dose adjustments at this time. Repeat TSH in 4 weeks (5) Type 2 diabetes mellitus: Code(s): E11.9 - Type 2 diabetes mellitus without complications Status: Acute Assessment and Plan: A1c is 5.8. She is on metformin at home. Blood sugars reviewed and are well controlled. Accuchecks ACHS, hypoglycemia protocol, correctional insulin during stay Resume metfomrin at discharge (6) Chronic kidney disease, stage 3: Code(s): N18.3 - Chronic kidney disease, stage 3 (moderate) Status: Acute Assessment and Plan: Patient reports chronic, mild renal insufficiency. creatinine 1.5 at presentation and has improved to 0.7 today. Suspect acute on chronic given dehydration. F/u with PCP (7) Ulcerative colitis: Code(s): K51.90 - Ulcerative colitis, unspecified, without complications Status: Acute Assessment and Plan: Status post right colectomy with ileostomy in 1970. CT of the abdomen and pelvis At presentation showed soft tissue densities which may be postoperative scarring however we do not have any prior imaging for comparison. she noted increased output from ileostomy the past several days but believes this is improving/resolved today request have been submitted to obtain prior records gastroenterology has been consulted recommendations are appreciated F/u with GI as needed as an outpatient (8) Low bicarbonate level: Code(s): E87.8 - Other disorders of electrolyte and fluid balance, not elsewhere classified Status: Acute Assessment
== END 2020-01-18 11:55 | disposition home or self-care (01) | DRG 439 ==
LOC: ANHED 14:38 → ANH2MED 16:55
PROVIDERS: Emergency Medicine; Physician Assistant; Admitting Provider Internal Medicine; Emergency Provider Emergency Medicine; PCP Family Medicine; Visit Provider Internal Medicine
DX: K85.90 Acute pancreatitis without necrosis or infection, unspecified (principal); K51.90 Ulcerative colitis, unspecified, without complications; N18.3 Chronic kidney disease, stage 3 (moderate); G47.33 Obstructive sleep apnea (adult) (pediatric); E11.9 Type 2 diabetes mellitus without complications; K21.9 Gastro-esophageal reflux disease without esophagitis; E86.0 Dehydration; E03.9 Hypothyroidism, unspecified; Z93.2 Ileostomy status
CPT/HCPCS: 36415; 74176; 80048; 80053; 80061; 81001; 82274; 82550; 83036; 83605; 83690; 83735; 84439; 84443; 84480; 85025; 85027; 85055; 87015; 87040; 87269; 87272; 96361; 96372; 96374; 99285; A9270; G0378; J0131; J1650; J7030

== ENCOUNTER 2020-02-28 12:56 | Emergency (ER) | payer MEDICARE, SELFPAY ==
[2020-02-28 13:28] VITALS: BP 119/61; PULSE 96; RESP 16; TEMP 36.6; O2SAT 100
[2020-02-28 14:41] LABS: Add Urine Microscopic? YES; Appearance Urine Clear (Clear); Bacteria Urine Trace /hpf; Bilirubin Urine Negative (Negative); Blood Urine Negative (Negative); Color Urine Yellow (Yellow); Glucose Urine UA Negative (Negative); Ketones Urine Negative (Negative); Leukocyte Esterase Ur Negative LEU/UL (Negative); Mucus Urine Moderate /lpf; Nitrate Urine Negative (Negative); Protein Urine 1+ mg/dL (Negative); RBC Urine 0-2 /hpf (0-2); Specific Grav Ur 1.029 (1.001-1.035); Squamous Epithelial Cell Urine Occasional /hpf (Few); Urobilinogen Urine Negative mg/dL (<2.0); WBC Urine 0-3 /hpf
[2020-02-28 15:01] LABS: Basophils Percent Auto 0.2 % (0.2-1.2); Eosinophils Absolute Auto 0.1 K/mm3 (0-0.3); Eosinophils Percent Auto 0.8 % (0-4.4); Hematocrit 39.2 % (37.0-47.0); Hemoglobin 12.4 g/dL (12.0-15.0); Immature Granulocyte Absolute 0.01 K/mm3 (0.00-0.031); Immature Granulocyte Percent A 0.1 % (0-0.5); Lymphocytes Absolute Auto 0.74 K/mm3 (0.9-3.2); Lymphocytes Percent Auto 8.1 % (18.3-44.2); Mean Corpuscular HGB Conc 31.6 g/dl (32-36); Mean Corpuscular Hemoglobin 29.4 pg (26-34); Mean Corpuscular Volume 92.9 fl (80-100); Mean Platelet Volume 9.4 fl (7.4-10.4); Monocytes Absolute Auto 0.6 K/mm3 (0.1-0.6); Monocytes Percent Auto 6.2 % (2.6-8.5); Neutrophils Absolute Auto 7.8 K/mm3 (1.3-6.7); Neutrophils Percent Auto 84.6 % (45.5-73.1); Platelet Count Result 241 k/mm3 (150-375); Red Blood Count 4.22 M/mm3 (4.2-5.4); Red Cell Distribution Width 12.5 % (11.5-14.5); White Blood Count 9.2 K/mm3 (4.5-10.0)
[2020-02-28] MEDS: ONDANSETRON INJ 4 MG/2 ML VIAL IV PUSH (15:08)
[2020-02-28] MEDS: FAMOTIDINE 20 MG/2 ML VIAL IV PUSH (15:08)
[2020-02-28] MEDS: SODIUM CHLORIDE 0.9% IV 1,000 ML 999 ML IV CONT (15:09)
[2020-02-28 15:14] LABS: Alanine Aminotransferase 30 U/L (4-35); Albumin Level 4.5 g/dL (3.5-5.1); Alkaline Phosphatase 126 U/L (38-126); Anion Gap 12 mmol/L (8-16); Aspartate Amino Transferase 40 U/L (14-36); Bilirubin,Total 0.6 mg/dL (0.2-1.3); Blood Urea Nitrogen 18 mg/dL (7-17); Calcium 9.7 mg/dL (8.4-10.2); Carbon Dioxide 24 mmol/L (22-30); Chloride 104 mmol/L (98-107); Estimated CRCL calculation 67 ml/min; Estimated Glomerular Filt Rate > 60; Glucose 119 mg/dL (65-105); Lipase 147 U/L (23-300); Potassium 4.1 mmol/L (3.4-5.0); Sodium 140 mmol/L (137-145)
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
[2020-02-28 17:06] VITALS: BP 132/70; PULSE 70; RESP 18; O2SAT 99
== END 2020-02-28 17:07 | disposition home or self-care (01) ==
PROVIDERS: Emergency Medicine; Emergency Provider Emergency Medicine; PCP Family Medicine
DX: R11.2 Nausea with vomiting, unspecified (principal); E11.22 Type 2 diabetes mellitus with diabetic chronic kidney disease; N18.30 Chronic kidney disease, stage 3 unspecified; Z79.84 Long term (current) use of oral hypoglycemic drugs; K21.9 Gastro-esophageal reflux disease without esophagitis; E03.9 Hypothyroidism, unspecified; G47.33 Obstructive sleep apnea (adult) (pediatric); E66.3 Overweight; Z68.28 Body mass index [BMI] 28.0-28.9, adult; Z98.49 Cataract extraction status, unspecified eye; Z96.642 Presence of left artificial hip joint; Z96.652 Presence of left artificial knee joint; Z90.49 Acquired absence of other specified parts of digestive tract; Z87.891 Personal history of nicotine dependence
CPT/HCPCS: 36415; 80053; 81001; 83690; 85025; 96361; 96374; 96375; 99284; J2405; J7030

== ENCOUNTER 2020-06-01 10:18 | Outpatient (CLI) | payer MEDICARE, SELFPAY ==
[2020-06-01 11:22] LABS: Alanine Aminotransferase 23 U/L (4-35); Albumin Level 4.5 g/dL (3.5-5.1); Alkaline Phosphatase 98 U/L (38-126); Anion Gap 10 mmol/L (8-16); Aspartate Amino Transferase 35 U/L (14-36); Bilirubin,Total 0.3 mg/dL (0.2-1.3); Blood Urea Nitrogen 20 mg/dL (7-17); Calcium 9.7 mg/dL (8.4-10.2); Carbon Dioxide 22 mmol/L (22-30); Chloride 109 mmol/L (98-107); Creatine Kinase 105 U/L (30-135); Estimated Glomerular Filt Rate > 60; Glucose 139 mg/dL (65-105); Magnesium 1.3 mg/dL (1.6-2.3); Potassium 4.3 mmol/L (3.4-5.0); Sodium 141 mmol/L (137-145)
== END 2020-06-01 10:19 | disposition home or self-care (01) ==
PROVIDERS: PCP Family Medicine; Visit Provider Physician Assistant Medical
DX: R79.89 Other specified abnormal findings of blood chemistry (principal); E78.5 Hyperlipidemia, unspecified; E83.42 Hypomagnesemia
CPT/HCPCS: 36415; 80053; 82550; 83735

== ENCOUNTER 2020-06-21 15:40 | Outpatient (CLI) | payer MEDICARE, SELFPAY ==
[2020-06-21 16:17] LABS: Anion Gap 8 mmol/L (8-16); Blood Urea Nitrogen 19 mg/dL (7-17); Calcium 9.7 mg/dL (8.4-10.2); Carbon Dioxide 26 mmol/L (22-30); Chloride 105 mmol/L (98-107); Estimated Glomerular Filt Rate > 60; Glucose 125 mg/dL (65-105); Magnesium 1.6 mg/dL (1.6-2.3); Potassium 3.9 mmol/L (3.4-5.0); Sodium 139 mmol/L (137-145)
== END 2020-06-21 15:41 | disposition home or self-care (01) ==
LOC: ANHLAB 15:41
PROVIDERS: PCP Family Medicine; Visit Provider Physician Assistant Medical
DX: E83.42 Hypomagnesemia (principal); N18.30 Chronic kidney disease, stage 3 unspecified
CPT/HCPCS: 36415; 80048; 83735

== ENCOUNTER → 2020-08-05 12:21 | Outpatient (CLI) | payer MEDICARE, SELFPAY ==
--- NOTE | ~2020-08-05 | MM_ITS ---
EXAMINATION: MM screening denice BI w danisha HISTORY: Screening mammogram TECHNIQUE: Craniocaudal and mediolateral oblique 3-D tomosynthesis images were obtained and synthetic 2-D images were generated. CAD analysis was submitted and interpreted. COMPARISON: No prior mammogram is available for comparison at this institution. BREAST PARENCHYMAL COMPOSITION: There are scattered areas of fibroglandular density. FINDINGS: There is no evidence of suspicious mass, calcification, or architectural distortion to sugg est malignancy in either breast. There has been no suspicious interval change. IMPRESSION: 1. No mammographic evidence of malignancy. 2. Recommend routine screening mammography in one year. BI-RADS Category 1: Negative Reviewed, dictated and finalized at location A.
== END ==
PROVIDERS: PCP Family Medicine; Visit Provider Nurse Practitioner Family
DX: Z12.31 Encounter for screening mammogram for malignant neoplasm of breast (principal)
CPT/HCPCS: 77063; 77067

== ENCOUNTER 2020-11-15 09:28 | Outpatient (CLI) | payer MEDICARE, SELFPAY ==
[2020-11-15 10:18] LABS: Alanine Aminotransferase 29 U/L (4-35); Albumin Level 4.8 g/dL (3.5-5.1); Alkaline Phosphatase 95 U/L (38-126); Anion Gap 11 mmol/L (8-16); Aspartate Amino Transferase 39 U/L (14-36); Bilirubin,Total 0.4 mg/dL (0.2-1.3); Blood Urea Nitrogen 13 mg/dL (7-17); Calcium 9.7 mg/dL (8.4-10.2); Carbon Dioxide 23 mmol/L (22-30); Chloride 106 mmol/L (98-107); Cholesterol 197 mg/dL (0-200); Estimated Glomerular Filt Rate > 60; Glucose 115 mg/dL (65-110); HDL Direct 58 mg/dL; Potassium 4.3 mmol/L (3.4-5.0); Sodium 140 mmol/L (137-145); Triglycerides 200 mg/dL (<150)
[2020-11-15 10:29] LABS: LDL Cholesterol Direct 83 mg/dL
[2020-11-15 16:12] LABS: Microalbumin Urine Random 9.1 mg/L (0-16.7)
[2020-11-15 16:21] LABS: Creatinine Urine 154.9 mg/dL; MALB Creatinine Ratio 5.9 mg/g (0-30)
== END 2020-11-15 09:29 | disposition home or self-care (01) ==
LOC: ANHLAB 09:30
PROVIDERS: PCP Family Medicine; Visit Provider Physician Assistant Medical
DX: E11.9 Type 2 diabetes mellitus without complications (principal); E03.9 Hypothyroidism, unspecified; Z13.220 Encounter for screening for lipoid disorders
CPT/HCPCS: 36415; 80053; 80061; 82043; 84443

== ENCOUNTER 2021-02-24 10:56 | Outpatient (CLI) | payer MEDICARE, SELFPAY ==
[2021-02-24 12:08] LABS: Alanine Aminotransferase 26 U/L (4-35); Aspartate Amino Transferase 37 U/L (14-36)
== END 2021-02-24 10:57 | disposition home or self-care (01) ==
LOC: ANHLAB 10:58
PROVIDERS: PCP Family Medicine; Visit Provider Physician Assistant Medical
DX: R79.89 Other specified abnormal findings of blood chemistry (principal)
CPT/HCPCS: 36415; 84450; 84460

== ENCOUNTER 2021-03-24 16:24 | Emergency (ER) | payer MEDICARE, SELFPAY ==
--- NOTE | ~2021-03-24 | XR_ITS ---
EXAMINATION: XR chest 1V portable 03/24/2021 16:40 INDICATION: Cough and shortness of breath PROCEDURE: AP portable chest COMPARISON: No prior studies for comparison. FINDINGS: The lungs are clear. The cardiomediastinal silhouette is within normal limits. There are no pleural effusions. There is no pneumothorax suspected. IMPRESSION: 1: NO ACUTE CARDIOPULMONARY DISEASE. Reviewed, dictated and finalized at location A. GER DESKTOP
--- NOTE | ~2021-03-24 | CT_ITS ---
EXAMINATION: CT abdomen pelvis w con DATE: 03/24/2021 18:21 INDICATION: Nausea, vomiting and diarrhea TECHNIQUE: Computed tomography (CT) of the abdomen and pelvis was performed with 100 cc Omnipaque 350 intravenous contrast. The dose-length product was 1123.27 mGy-cm. Automated exposure control and ite rative reconstruction technique were employed. COMPARISON: CT dated 01/15/2020. FINDINGS: Lung bases are unremarkable. No significant pleural or pericardial effusion. Heart size is normal. No significant vascular abnormality. No lymphadenopathy. There are surgical changes consisten t with previous colectomy with right lower quadrant ileostomy. There is a left hip arthroplasty. Ther e are cholecystectomy clips. Fatty infiltration of the liver. The spleen, pancreas, adrenal glands an d kidneys are unremarkable. No abnormal pelvic masses or fluid collections. Stable soft tissue in the presacral space, likely postsurgical. No free air or free fluid. Nonobstructive bowel pattern. No fo imelda lytic or blastic lesions. IMPRESSION: 1. No acute abdominal abnormality. Reviewed, dictated and finalized at location A. S PROCESSOR
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
[2021-03-24 16:57] VITALS: BP 143/80; PULSE 100; RESP 18
[2021-03-24] MEDS: ONDANSETRON INJ 4 MG/2 ML VIAL IV PUSH (17:18)
[2021-03-24] MEDS: SODIUM CHLORIDE 0.9% IV 1,000 ML 999 ML IV CONT ×2 (17:18→20:43)
[2021-03-24 17:19] LABS: Basophils Percent Auto 0.3 % (0.2-1.2); Eosinophils Absolute Auto 0.1 K/mm3 (0-0.3); Eosinophils Percent Auto 1.5 % (0-4.4); Hematocrit 44.1 % (37.0-47.0); Hemoglobin 14.5 g/dL (12.0-15.0); Immature Granulocyte Absolute 0.02 K/mm3 (0.00-0.031); Immature Granulocyte Percent A 0.3 % (0-0.5); Lymphocytes Absolute Auto 1.17 K/mm3 (0.9-3.2); Mean Corpuscular HGB Conc 32.9 g/dl (32-36); Mean Corpuscular Hemoglobin 29.1 pg (26-34); Mean Corpuscular Volume 88.4 fl (80-100); Mean Platelet Volume 10.2 fl (7.4-10.4); Monocytes Absolute Auto 0.6 K/mm3 (0.1-0.6); Monocytes Percent Auto 7.5 % (2.6-8.5); Neutrophils Absolute Auto 5.5 K/mm3 (1.3-6.7); Neutrophils Percent Auto 74.4 % (45.5-73.1); Platelet Count Result 276 k/mm3 (150-375); Red Blood Count 4.99 M/mm3 (4.2-5.4); Red Cell Distribution Width 13.1 % (11.5-14.5); White Blood Count 7.3 K/mm3 (4.5-10.0)
[2021-03-24 17:19] LABS: Alanine Aminotransferase 37 U/L (4-35); Albumin Level 5.5 g/dL (3.5-5.1); Alkaline Phosphatase 120 U/L (38-126); Anion Gap 19 mmol/L (8-16); Aspartate Amino Transferase 51 U/L (14-36); Bilirubin,Total 0.6 mg/dL (0.2-1.3); Blood Urea Nitrogen 25 mg/dL (7-17); Calcium 11.1 mg/dL (8.4-10.2); Carbon Dioxide 12 mmol/L (22-30); Chloride 106 mmol/L (98-107); Estimated CRCL calculation 45 ml/min; Estimated Glomerular Filt Rate 49; Glucose 153 mg/dL (65-110); Lipase 167 U/L (23-300); Potassium 4.2 mmol/L (3.4-5.0); Sodium 137 mmol/L (137-145)
[2021-03-24 18:01] LABS: Add Urine Microscopic? YES; Appearance Urine Cloudy (Clear); Bilirubin Urine Negative (Negative); Blood Urine Negative (Negative); Color Urine Amber (Yellow); Glucose Urine UA Negative (Negative); Hyaline Casts Urine 50+ /lpf; Ketones Urine Negative (Negative); Leukocyte Esterase Ur Negative LEU/UL (Negative); Mucus Urine Heavy /lpf; Nitrate Urine Negative (Negative); Protein Urine 2+ mg/dL (Negative); Squamous Epithelial Cell Urine Moderate /hpf (Few); Urobilinogen Urine Negative mg/dL (<2.0); WBC Urine 31-50 /hpf
[2021-03-24 18:31] VITALS: BP 131/64; PULSE 79; RESP 17; O2SAT 95
[2021-03-24 20:29] LABS: Lactic Acid Reflex 0.9 mmol/L (0.7-2.1)
[2021-03-24 20:30] LABS: Anion Gap 16 mmol/L (8-16); Blood Urea Nitrogen 24 mg/dL (7-17); Calcium 10.6 mg/dL (8.4-10.2); Carbon Dioxide 15 mmol/L (22-30); Chloride 105 mmol/L (98-107); Estimated CRCL calculation 45 ml/min; Estimated Glomerular Filt Rate 49; Glucose 124 mg/dL (65-110); Potassium 4.7 mmol/L (3.4-5.0); Sodium 136 mmol/L (137-145)
[2021-03-24 20:44] VITALS: BP 130/70; PULSE 74; RESP 16; O2SAT 98
[2021-03-24 22:17] VITALS: BP 130/70; PULSE 74; RESP 16; O2SAT 99
== END 2021-03-24 22:22 | disposition home or self-care (01) ==
PROVIDERS: Emergency Provider Emergency Medicine; PCP Family Medicine
DX: R10.10 Upper abdominal pain, unspecified (principal); R11.2 Nausea with vomiting, unspecified; E11.22 Type 2 diabetes mellitus with diabetic chronic kidney disease; N18.30 Chronic kidney disease, stage 3 unspecified; K21.9 Gastro-esophageal reflux disease without esophagitis; E03.9 Hypothyroidism, unspecified; G47.33 Obstructive sleep apnea (adult) (pediatric); K51.90 Ulcerative colitis, unspecified, without complications; Z98.49 Cataract extraction status, unspecified eye; Z96.642 Presence of left artificial hip joint; Z96.652 Presence of left artificial knee joint; Z90.49 Acquired absence of other specified parts of digestive tract; Z87.891 Personal history of nicotine dependence; Z93.2 Ileostomy status; Z79.84 Long term (current) use of oral hypoglycemic drugs
CPT/HCPCS: 36415; 71045; 74177; 80048; 80053; 81001; 83605; 83690; 85025; 87086; 87088; 96361; 96365; 96375; 99284; J0131; J2405; J7030; Q9967

== ENCOUNTER 2021-05-25 10:40 | Outpatient (CLI) | payer MEDICARE, SELFPAY ==
[2021-05-25 11:54] LABS: Anion Gap 8 mmol/L (8-16); Blood Urea Nitrogen 17 mg/dL (7-17); Calcium 9.7 mg/dL (8.4-10.2); Carbon Dioxide 27 mmol/L (22-30); Chloride 106 mmol/L (98-107); Cholesterol 201 mg/dL (0-200); Estimated Glomerular Filt Rate > 60; Glucose 117 mg/dL (65-110); HDL Direct 51 mg/dL; Potassium 4.3 mmol/L (3.4-5.0); Sodium 141 mmol/L (137-145); Triglycerides 221 mg/dL (<150)
[2021-05-25 12:04] LABS: LDL Cholesterol Direct 86 mg/dL
[2021-05-25 12:34] LABS: Creatinine Urine 208.6 mg/dL
[2021-05-25 12:39] LABS: MALB Creatinine Ratio 7.8 mg/g (0-30); Microalbumin Urine Random 16.3 mg/L (0-16.7)
== END 2021-05-25 10:41 | disposition home or self-care (01) ==
PROVIDERS: PCP Family Medicine; Visit Provider Physician Assistant Medical
DX: E83.52 Hypercalcemia (principal); E11.9 Type 2 diabetes mellitus without complications; E78.5 Hyperlipidemia, unspecified
CPT/HCPCS: 36415; 80048; 80061; 82043

== ENCOUNTER → 2021-10-20 16:07 | Outpatient (CLI) | payer MEDICARE, SELFPAY ==
--- NOTE | ~2021-10-20 | MM_ITS ---
EXAMINATION: MM screening [facility] BI w danisha HISTORY: Screening mammogram TECHNIQUE: Craniocaudal and mediolateral oblique 3-D tomosynthesis images were obtained and synthetic 2-D images were generated. CAD analysis was submitted and interpreted. COMPARISON: 08/05/2020 bilateral screening mammogram BREAST PARENCHYMAL COMPOSITION: There are scattered areas of fibroglandular density. FINDINGS: There is no evidence of suspicious mass, calcification, or architectural distortion to sugg est malignancy in either breast. There has been no suspicious interval change. IMPRESSION: 1. No mammographic evidence of malignancy. 2. Recommend routine screening mammography in one year. BI-RADS Category 1: Negative Reviewed, dictated and finalized at location A.
== END ==
PROVIDERS: PCP Family Medicine; Visit Provider Family Medicine
DX: Z12.31 Encounter for screening mammogram for malignant neoplasm of breast (principal)
CPT/HCPCS: 77063; 77067

== ENCOUNTER 2022-03-06 11:24 | Outpatient (CLI) | payer MEDICARE, SELFPAY ==
--- NOTE | ~2022-03-06 | XR_ITS ---
EXAMINATION: XR femur LT min 2V DATE: 03/06/2022 11:48 INDICATION: Left leg pain TECHNIQUE: AP and lateral views of the left femur were obtained on overlapping proximal and distal im ages. COMPARISON: None. FINDINGS: Left total hip arthroplasty which appears well seated and in near anatomic alignment with intertrocha nteric cerclage wire. Left total knee arthroplasty with patellar resurfacing. Old healed proximal gypsy physeal fractures of the left femur with lucencies along the diaphysis and distal metaphysis consiste nt with an earlier since removed intramedullary adolfo fixation. No acute fractures identified. Soft tis sues are unremarkable. No left knee joint effusion. Sutures project over the midline of the pelvis. IMPRESSION: 1. Old healed left femoral diaphyseal fracture with postoperative change of an earlier fixation and c urrent left total hip and total knee arthroplasties in near-anatomic alignment. No acute osseous abno rmality. Reviewed, dictated and finalized at location A. CLERK IMPRESSION: 1. Old healed left femoral diaphyseal fracture with postoperative change of an earlier fixation and current left total hip and total knee arthroplasties in ne ar-anatomic alignment. No acute osseous abnormality.
== END 2022-03-06 11:25 | disposition home or self-care (01) ==
PROVIDERS: PCP Family Medicine; Visit Provider Physician Assistant Medical
DX: G89.29 Other chronic pain (principal); M79.606 Pain in leg, unspecified; Z87.81 Personal history of (healed) traumatic fracture; Z96.642 Presence of left artificial hip joint; Z96.652 Presence of left artificial knee joint
CPT/HCPCS: 73552

== ENCOUNTER 2022-03-21 15:30 | Emergency (ER) | payer MEDICARE, SELFPAY ==
[2022-03-21 15:52] VITALS: BP 145/77; PULSE 96; RESP 18; TEMP 36.4; O2SAT 96
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
== END 2022-03-21 16:45 | disposition home or self-care (01) ==
PROVIDERS: Emergency Provider Nurse Practitioner Family; PCP Family Medicine
DX: J06.9 Acute upper respiratory infection, unspecified (principal); R09.82 Postnasal drip; E03.9 Hypothyroidism, unspecified; I12.9 Hypertensive chronic kidney disease with stage 1 through stage 4 chronic kidney disease, or unspecified chronic kidney disease; E11.22 Type 2 diabetes mellitus with diabetic chronic kidney disease; N18.30 Chronic kidney disease, stage 3 unspecified; Z20.822 Contact with and (suspected) exposure to COVID-19
CPT/HCPCS: 87426; 99213; C9803; G0463

== ENCOUNTER → 2022-05-25 10:49 | Outpatient (CLI) | payer MEDICARE, SELFPAY ==
--- NOTE | ~2022-05-25 | CT_ITS ---
EXAMINATION: CT femur LT wo con DATE: 05/25/2022 11:04 INDICATION: Left thigh pain TECHNIQUE: High resolution computed tomography (CT) of the left femur was performed without intraveno us contrast. Additional sagittal and coronal reconstructions were performed. Automated exposure contr ol and iterative reconstruction technique were employed. The dose-length product was 447.72 mGy-cm. COMPARISON: 05/18/2022 and 03/16/2022 FINDINGS: Old healed fracture deformity at the proximal left femoral diaphysis with lucent tract extending uli g the more distal diaphysis and extending across the supracondylar distal femur consistent with a lissett or intramedullary adolfo fixation. Left total hip arthroplasty which appears well seated in near-anatomi c alignment. Cerclage wire about the intratrochanteric region. Distally there is a left total knee ar throplasty with patellar resurfacing which also appears well seated in essentially anatomic alignment . No periprosthetic lucency either at the left hip or knee to suggest loosening or infection of the a rthroplasty components. Soft tissues are unremarkable. No left knee joint effusion. Postoperative taylor nges with multiple surgical clips along the left paramedian anterior pelvic wall. IMPRESSION: 1. Postoperative changes at the left femur including left total hip and total knee arthroplasties and stigmata of previously removed internal fixation of an old healed proximal diaphyseal fracture. No a cute onset mild to . Reviewed, dictated and finalized at location L. GY SPECIALIST IMPRESSION: 1. Postoperative changes at the left femur including left total hip and total k nee arthroplasties and stigmata of previously removed internal fixation of an o ld healed proximal diaphyseal fracture. No acute onset mild to .
== END ==
PROVIDERS: PCP Family Medicine; Visit Provider Orthopaedic Surgery
DX: M79.652 Pain in left thigh (principal); Z96.652 Presence of left artificial knee joint; Z96.642 Presence of left artificial hip joint
CPT/HCPCS: 73700

== ENCOUNTER 2022-06-08 09:59 | Outpatient (CLI) | payer MEDICARE, SELFPAY ==
[2022-06-08 10:19] LABS: Basophils Percent Auto 0.4 % (0.2-1.2); Eosinophils Percent Auto 0.8 % (0-4.4); Hematocrit 37.3 % (37.0-47.0); Immature Granulocyte Absolute 0.01 K/mm3 (0.00-0.031); Immature Granulocyte Percent A 0.2 % (0-0.5); Lymphocytes Absolute Auto 1.21 K/mm3 (0.9-3.2); Lymphocytes Percent Auto 25.4 % (18.3-44.2); Mean Corpuscular HGB Conc 32.2 g/dl (32-36); Mean Corpuscular Hemoglobin 29.1 pg (26-34); Mean Corpuscular Volume 90.3 fl (80-100); Mean Platelet Volume 9.4 fl (7.4-10.4); Monocytes Absolute Auto 0.4 K/mm3 (0.1-0.6); Monocytes Percent Auto 7.3 % (2.6-8.5); Neutrophils Absolute Auto 3.1 K/mm3 (1.3-6.7); Neutrophils Percent Auto 65.9 % (45.5-73.1); Platelet Count Result 203 k/mm3 (150-375); Red Blood Count 4.13 M/mm3 (4.2-5.4); Red Cell Distribution Width 13.2 % (11.5-14.5); White Blood Count 4.8 K/mm3 (4.5-10.0)
[2022-06-08 10:47] LABS: Alanine Aminotransferase 26 U/L (6-35); Albumin Level 4.5 g/dL (3.5-5.1); Alkaline Phosphatase 88 U/L (38-126); Anion Gap 6 mmol/L (8-16); Aspartate Amino Transferase 36 U/L (14-36); Bilirubin,Total 0.5 mg/dL (0.2-1.3); Blood Urea Nitrogen 14 mg/dL (7-17); Calcium 9.4 mg/dL (8.4-10.2); Carbon Dioxide 26 mmol/L (22-30); Chloride 104 mmol/L (98-107); Cholesterol 197 mg/dL (0-200); Estimated Glomerular Filt Rate > 60; Glucose 117 mg/dL (65-110); HDL Direct 54 mg/dL; Potassium 4.3 mmol/L (3.4-5.0); Sodium 136 mmol/L (137-145); Triglycerides 250 mg/dL (<150)
[2022-06-08 10:58] LABS: LDL Cholesterol Direct 76 mg/dL
[2022-06-08 11:51] LABS: Creatinine Urine 236.6 mg/dL
[2022-06-08 11:55] LABS: MALB Creatinine Ratio 7.4 mg/g (0-30); Microalbumin Urine Random 17.4 mg/L (0-16.7)
== END 2022-06-08 10:00 | disposition home or self-care (01) ==
PROVIDERS: PCP Family Medicine; Visit Provider Physician Assistant Medical
DX: N18.30 Chronic kidney disease, stage 3 unspecified (principal); E78.5 Hyperlipidemia, unspecified; E11.22 Type 2 diabetes mellitus with diabetic chronic kidney disease; E03.9 Hypothyroidism, unspecified
CPT/HCPCS: 36415; 80053; 80061; 82043; 84443; 85025

== ENCOUNTER → 2022-06-15 14:21 | Outpatient (CLI) | payer MEDICARE, SELFPAY ==
--- NOTE | ~2022-06-15 | DEXA_ITS ---
Bone Density Report Name: JESIKA MONTEZ Age: 71 Sex: Female Ethnicity: White Date of : 1950 Indication: postmenopausal; screening for osteoporosis; prior fracture; renal disease; Referring Provider: Ro Cuello Study: Bone densitometry was performed. Exam Date: June 15, 2022 Accession number: [id number] Bone Density: Region BMD T-score Z-score Classification AP Spine (L1, L4) 1.029 -0.1 2.0 Normal Femoral Neck (Right) 0.655 -1.7 0.0 Osteopenia Total Hip (Right) 0.868 -0.6 0.9 Normal World Health Organization criteria for BMD impression classify patients as: Normal (T-score at or above -1.0), Osteopenia (T-score between -1.0 and -2.5), or Osteoporosis (T-score at or below -2.5). 10-year Fracture Risk: FRAX not reported because: Prior hip or vertebral fracture Clinical Information Provided by Patient: Have had a previous hip or vertebral fracture Has had a low trauma fracture Has used the following medications: Vitamin D, MTV Patient maximum height was 64 Menopause Age: 48 No regular weight bearing exercise Drinks caffeinated beverages Onset of menses at age 14 Number of children 0 Impression: The patient has low bone mass, based on the Right Femoral Neck T-score. The patient has risk factors, including: previous fracture. Discussion: INCREASED RISK OF FRACTURE DUE TO HISTORY OF FRACTURE. The patient's previous fracture puts the patient at high risk of a future fracture. In untreated patients, the risk of osteoporotic fracture increases approximately two-fold for each 1.0 SD decrease in T-score. Low bone density is not the only risk factor for fracture; also consider factors such as patient's age, frailty or poor health, risk of falling, risk of injury, previous osteoporotic fracture, family history of osteoporosis, cigarette smoking, low body weight, etc. Not everyone with a low trauma fracture has osteoporosis; osteomalacia and other metabolic bone disorders should also be considered. Patients who have osteoporosis should be evaluated for specific diseases and conditions (secondary causes) that may cause or contribute to bone loss and fracture risk. National Osteoporosis Foundation (NOF) recommends pharmacologic intervention for patients with a prior hip or vertebral fracture regardless of BMD T-score. The patient should follow a healthful lifestyle (good nutrition with adequate calcium and vitamin D, and appropriate weight-bearing exercise). Follow-Up: Consider a repeat BMD and Vertebral Fracture Assessment (VFA) exam in 2 years or sooner if medically necessary, to reassess this patient's status. Reported by: LUIGI on 06/15/2022 2:47:00 PM. Reviewed, dictated and finalized at location AJoyce BRADEN
== END ==
PROVIDERS: PCP Family Medicine; Visit Provider Physician Assistant Medical
DX: Z78.0 Asymptomatic menopausal state (principal); M85.851 Other specified disorders of bone density and structure, right thigh
CPT/HCPCS: 77080

== ENCOUNTER 2022-07-26 09:51 | Outpatient (CLI) | payer MEDICARE, SELFPAY ==
[2022-07-26 10:17] LABS: Anion Gap 11 mmol/L (8-16); Blood Urea Nitrogen 24 mg/dL (7-17); Calcium 9.6 mg/dL (8.4-10.2); Carbon Dioxide 22 mmol/L (22-30); Chloride 106 mmol/L (98-107); Estimated Glomerular Filt Rate > 60; Glucose 126 mg/dL (65-110); Potassium 4.5 mmol/L (3.4-5.0); Sodium 139 mmol/L (137-145)
== END 2022-07-26 09:52 | disposition home or self-care (01) ==
LOC: ANHLAB 09:52
PROVIDERS: PCP Family Medicine; Visit Provider Physician Assistant Medical
DX: E87.1 Hypo-osmolality and hyponatremia (principal); E03.9 Hypothyroidism, unspecified
CPT/HCPCS: 36415; 80048; 84443

== ENCOUNTER 2022-08-30 09:40 | Outpatient (CLI) | payer MEDICARE, SELFPAY ==
[2022-08-30 10:28] LABS: Anion Gap 8 mmol/L (8-16); Blood Urea Nitrogen 16 mg/dL (7-17); Calcium 9.3 mg/dL (8.4-10.2); Carbon Dioxide 25 mmol/L (22-30); Chloride 105 mmol/L (98-107); Estimated Glomerular Filt Rate > 60; Glucose 126 mg/dL (65-110); Potassium 4.8 mmol/L (3.4-5.0); Sodium 138 mmol/L (137-145)
== END 2022-08-30 09:41 | disposition home or self-care (01) ==
PROVIDERS: PCP Family Medicine; Visit Provider Physician Assistant Medical
DX: N28.9 Disorder of kidney and ureter, unspecified (principal)
CPT/HCPCS: 36415; 80048

== ENCOUNTER 2022-09-07 11:13 | Outpatient (CLI) | payer MEDICARE, SELFPAY ==
--- NOTE | ~2022-09-07 | XR_ITS ---
Clinical Indication: Chronic cough PA and lateral views of the chest: Comparison: 03/24/2021 Findings: The lungs are clear, without evidence of focal consolidation or pleural effusion. Cardiome diastinal silhouette is within normal limits. Bones and soft tissues are unremarkable. Impression: Normal chest. Reviewed, dictated and finalized at location . Impression: Normal chest.
== END 2022-09-07 11:14 | disposition home or self-care (01) ==
PROVIDERS: PCP Family Medicine; Visit Provider Physician Assistant Medical
DX: R05.3 Chronic cough (principal)
CPT/HCPCS: 71046

== ENCOUNTER 2022-11-07 08:12 | Outpatient (CLI) | payer MEDICARE, SELFPAY ==
--- NOTE | 2022-11-10 15:17 | WPDPFTINT ---
PFT Procedure Performed PFT Procedure Performed Spirometry with Pre/Post Bronchodilator Plethysmography (Lung Vol) Diffusing Cap (DLCO) Flow Vol Loop PFT Interpretation DOS: 11/07/2022 REQUESTING: Ro Cuello PA-C REASON FOR TESTING: Chronic cough PULMONARY FUNCTION TESTS Results are reliable and reproducible. Spirometry: Pre bronchodilator FEV1 is 2.11 L, 109%, normal. Pre bronchodilator FVC is 2.42 L, 97%, normal. FEV1/FVC ratio 87%, normal. After bronchodilator, FEV1 increases 3%, 112% predicted, 2.17 L. This is not statistically significant. After bronchodilator, FVC increases by 4%, 102% predicted, 2.52 L, not statistically significant. FEV1:FVC 86%. Lung volumes: Total lung capacity is 4.85 L, 109%, normal. Residual volume is 2.19 L, 108%, normal. RV/TLC is 45%, normal. Diffusion: DLCO is 11.5, 56%, below normal. DLCO/VA is 3.11, 72%, low end of normal. Flow volume loop: Normal IMPRESSION: This study shows normal spirometry, normal lung volumes, minimally decreased diffusion capacity which corrects for alveolar volume, no response to bronchodilator. Lack of response to bronchodilator should not preclude use if clinically indicated. No prior tests are available for comparison. Lucila Hernandez MD
== END 2022-11-07 08:13 | disposition home or self-care (01) ==
PROVIDERS: PCP Family Medicine; Visit Provider Physician Assistant Medical
DX: R05.3 Chronic cough (principal)
CPT/HCPCS: 94060; 94726; 94729

== ENCOUNTER → 2022-12-22 13:28 | Outpatient (CLI) | payer MEDICARE, SELFPAY ==
--- NOTE | ~2022-12-22 | MM_ITS ---
EXAMINATION: MM screening [facility] BI w danisha HISTORY: Screening mammogram TECHNIQUE: Craniocaudal and mediolateral oblique 3-D tomosynthesis images were obtained and synthetic 2-D images were generated. CAD analysis was submitted and interpreted. COMPARISON: 10/20/2021, 08/05/2020 BREAST PARENCHYMAL COMPOSITION: There are scattered areas of fibroglandular density. FINDINGS: No suspicious mass, calcification, or architectural distortion are identified in either darrin ast to suggest malignancy. There has been no suspicious interval change. IMPRESSION: 1. No mammographic evidence of malignancy. 2. Recommend routine screening mammography in one year. BI-RADS Category 1: Negative Reviewed, dictated and finalized at location A.
== END ==
PROVIDERS: PCP Family Medicine; Visit Provider Family Medicine
DX: Z12.31 Encounter for screening mammogram for malignant neoplasm of breast (principal)
CPT/HCPCS: 77063; 77067

== ENCOUNTER 2022-12-27 11:08 | Outpatient (CLI) | payer MEDICARE, SELFPAY | END 2022-12-27 11:09 | disposition home or self-care (01) | LOC: ANHLAB 11:10 | PROVIDERS: PCP Family Medicine; Visit Provider Physician Assistant | DX: J30.9 Allergic rhinitis, unspecified (principal) | CPT/HCPCS: 36415; 82785; 86003 ==

== ENCOUNTER 2023-05-22 19:14 | Emergency (ER) | payer MEDICARE, SELFPAY ==
[2023-05-22 19:36] VITALS: BP 116/58; PULSE 107; RESP 18; TEMP 36.7; O2SAT 95
[2023-05-22 19:40] LABS: Basophils Percent Auto 0.2 % (0.2-1.2); Eosinophils Absolute Auto 0.1 K/mm3 (0-0.3); Eosinophils Percent Auto 1.1 % (0-4.4); Hematocrit 42.7 % (37.0-47.0); Hemoglobin 13.9 g/dL (12.0-15.0); Immature Granulocyte Absolute 0.02 K/mm3 (0.00-0.031); Immature Granulocyte Percent A 0.2 % (0-0.5); Lymphocytes Absolute Auto 1.33 K/mm3 (0.9-3.2); Lymphocytes Percent Auto 14.5 % (18.3-44.2); Mean Corpuscular HGB Conc 32.6 g/dl (32-36); Mean Corpuscular Hemoglobin 29.1 pg (26-34); Mean Corpuscular Volume 89.3 fl (80-100); Mean Platelet Volume 9.6 fl (7.4-10.4); Monocytes Absolute Auto 0.6 K/mm3 (0.1-0.6); Monocytes Percent Auto 6.5 % (2.6-8.5); Neutrophils Absolute Auto 7.1 K/mm3 (1.3-6.7); Neutrophils Percent Auto 77.5 % (45.5-73.1); Platelet Count Result 356 k/mm3 (150-375); Red Blood Count 4.78 M/mm3 (4.2-5.4); Red Cell Distribution Width 13.1 % (11.5-14.5); White Blood Count 9.2 K/mm3 (4.5-10.0)
[2023-05-22 19:51] LABS: Alanine Aminotransferase 42 U/L (6-35); Albumin Level 5.2 g/dL (3.5-5.1); Alkaline Phosphatase 136 U/L (38-126); Anion Gap 18 mmol/L (8-16); Aspartate Amino Transferase 52 U/L (14-36); Bilirubin,Total 0.5 mg/dL (0.2-1.3); Blood Urea Nitrogen 32 mg/dL (7-17); Calcium 10.7 mg/dL (8.4-10.2); Carbon Dioxide 12 mmol/L (22-30); Chloride 107 mmol/L (98-107); Estimated CRCL calculation 31 ml/min; Estimated Glomerular Filt Rate 32; Glucose 188 mg/dL (65-110); Lipase 212 U/L (23-300); Sodium 137 mmol/L (137-145)
[2023-05-23 01:18] LABS: Appearance Urine Cloudy (Clear); Bacteria Urine None Seen /hpf; Bilirubin Urine 1+ (Negative); Blood Urine Negative (Negative); Color Urine Dark Yellow (Yellow); Glucose Urine UA Negative (Negative); Hyaline Casts Urine Present /lpf; Ketones Urine 1+ mg/dL (Negative); Leukocyte Esterase Ur 1+ LEU/UL (Negative); Need Manual Microscopic Reviewed; Nitrate Urine Negative (Negative); Non Pathogenic Casts >20; Protein Urine 2+ mg/dL (Negative); Specific Grav Ur 1.024 (1.001-1.035); Squamous Epithelial Cell Urine Few /hpf (Few); WBC Urine 21-50 /hpf
[2023-05-23 01:30] LABS: Add Urine Microscopic? YES
[2023-05-23] MEDS: PROCHLORPERAZINE EDISYLATE 10 MG/2 ML VIAL IV PUSH (03:03)
[2023-05-23 03:04] VITALS: BP 141/76; PULSE 101; RESP 15; O2SAT 97
[2023-05-23] MEDS: SODIUM CHLORIDE 0.9% IV 1,000 ML 999 ML IV CONT (03:04)
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
[2023-05-23] MEDS: CEPHALEXIN 500 MG CAPSULE PO (05:10)
[2023-05-23 05:12] VITALS: BP 142/61; PULSE 99; RESP 17; O2SAT 95
== END 2023-05-23 05:20 | disposition home or self-care (01) ==
PROVIDERS: Student in an Organized Health Care Education/Training Program; Emergency Provider Emergency Medicine; PCP Family Medicine
DX: K52.9 Noninfective gastroenteritis and colitis, unspecified (principal); N39.0 Urinary tract infection, site not specified; E86.0 Dehydration; E11.22 Type 2 diabetes mellitus with diabetic chronic kidney disease; N18.30 Chronic kidney disease, stage 3 unspecified; E03.9 Hypothyroidism, unspecified; E66.3 Overweight; Z68.32 Body mass index [BMI] 32.0-32.9, adult; K21.9 Gastro-esophageal reflux disease without esophagitis; K51.90 Ulcerative colitis, unspecified, without complications; G47.33 Obstructive sleep apnea (adult) (pediatric); Z96.652 Presence of left artificial knee joint; Z96.642 Presence of left artificial hip joint; Z98.49 Cataract extraction status, unspecified eye; Z90.49 Acquired absence of other specified parts of digestive tract; Z87.891 Personal history of nicotine dependence; Z79.84 Long term (current) use of oral hypoglycemic drugs
CPT/HCPCS: 36415; 80053; 81001; 83690; 85025; 87086; 87088; 96361; 96374; 99284; A9270; J0780; J7030

== ENCOUNTER 2023-06-21 08:06 | Inpatient (IN) | payer MEDICARE, SELFPAY ==
[2023-06-21] VITALS (14 sets, daily range): BP systolic 91–115; BP diastolic 42–70; PULSE 76–102; RESP 16–22; TEMP 36.2–36.7; O2SAT 94–100
--- NOTE | ~2023-06-21 | CT_ITS ---
EXAMINATION: CT abdomen pelvis wo con DATE: 06/21/2023 09:22 INDICATION: Nausea and vomiting TECHNIQUE: Computed tomography (CT) of the abdomen and pelvis was performed without intravenous contr ast. The dose-length product (DLP) was 709.62 mGy-cm. Automated exposure control and iterative recons truction technique were employed. COMPARISON: 03/24/2021 FINDINGS: Minimal dependent atelectasis is present in the lung bases. The heart size is normal. Silva es of cholecystectomy are noted. The liver, spleen, pancreas, and adrenal glands are normal. The kidn eys are unremarkable. There are surgical changes of total colectomy with right lower quadrant ileosto my. No pathologically enlarged abdominal or pelvic lymph nodes are identified. No free intraperitonea l gas or evidence of bowel obstruction. Changes of left total hip arthroplasty are noted. Chronic and stable presacral soft tissue likely relates to prior surgery. There is severe lumbar spondylosis at L2-3. IMPRESSION: 1. No CT correlate for the patient's symptoms. Reviewed, dictated and finalized at location [facility]. [facility]
--- NOTE | ~2023-06-21 | US_ITS ---
Renal-Bladder ultrasound Clinical History: Renal failure Technique: Real-time sonographic imaging of the kidneys and urinary bladder was performed. Findings: The right kidney measures 10.0 cm in length and the left kidney measures 10.5 cm. There is no hydronephrosis or renal calculus identified. Renal cortical echogenicity is within normal limits. No renal mass lesion is identified. The urinary bladder is collapsed, limiting evaluation. Impression: Unremarkable ultrasound of the kidneys and urinary bladder. Reviewed, dictated and finalized at location M. [facility]IST[facility] Impression: Unremarkable ultrasound of the kidneys and urinary bladder.
[2023-06-21 08:28] LABS: Basophils Absolute Auto 0.1 K/mm3 (0.0-0.1); Basophils Percent Auto 0.3 % (0.2-1.2); Eosinophils Absolute Auto 0.4 K/mm3 (0-0.3); Eosinophils Percent Auto 2.2 % (0-4.4); Hematocrit 39.8 % (37.0-47.0); Hemoglobin 13.1 g/dL (12.0-15.0); Immature Granulocyte Absolute 0.08 K/mm3 (0.00-0.031); Immature Granulocyte Percent A 0.5 % (0-0.5); Lymphocytes Absolute Auto 1.23 K/mm3 (0.9-3.2); Lymphocytes Percent Auto 7.2 % (18.3-44.2); Mean Corpuscular HGB Conc 32.9 g/dl (32-36); Mean Corpuscular Hemoglobin 29.5 pg (26-34); Mean Corpuscular Volume 89.6 fl (80-100); Mean Platelet Volume 9.9 fl (7.4-10.4); Monocytes Absolute Auto 1.2 K/mm3 (0.1-0.6); Monocytes Percent Auto 6.8 % (2.6-8.5); Neutrophils Absolute Auto 14.1 K/mm3 (1.3-6.7); Platelet Count Result 308 k/mm3 (150-375); Red Blood Count 4.44 M/mm3 (4.2-5.4); Red Cell Distribution Width 13.6 % (11.5-14.5)
[2023-06-21 08:35] LABS: Alanine Aminotransferase 41 U/L (6-35); Alkaline Phosphatase 118 U/L (38-126); Anion Gap 20 mmol/L (8-16); Aspartate Amino Transferase 49 U/L (14-36); Bilirubin,Total 0.6 mg/dL (0.2-1.3); Blood Urea Nitrogen 53 mg/dL (7-17); Calcium 11.4 mg/dL (8.4-10.2); Carbon Dioxide 10 mmol/L (22-30); Chloride 103 mmol/L (98-107); Estimated CRCL calculation 12 ml/min; Estimated Glomerular Filt Rate 11; Glucose 195 mg/dL (65-110); Lipase 764 U/L (23-300); Potassium 4.4 mmol/L (3.4-5.0); Sodium 133 mmol/L (137-145)
[2023-06-21] MEDS: ONDANSETRON INJ 4 MG/2 ML VIAL IV PUSH (08:53)
[2023-06-21] MEDS: SODIUM CHLORIDE 0.9% IV 1,000 ML 999 ML IV CONT (08:54)
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
[2023-06-21 11:04] LABS: Appearance Urine Turbid (Clear); Bacteria Urine 1+ /hpf; Bilirubin Urine Negative (Negative); Blood Urine Negative (Negative); Color Urine Dark Yellow (Yellow); Glucose Urine UA Negative (Negative); Ketones Urine Trace mg/dL (Negative); Leukocyte Esterase Ur 2+ LEU/UL (Negative); Mucus Urine Present /lpf; Nitrate Urine Negative (Negative); Non Pathogenic Casts >20; Protein Urine 2+ mg/dL (Negative); RBC Urine 0-2 /hpf (0-2); Specific Grav Ur 1.018 (1.001-1.035); Squamous Epithelial Cell Urine Moderate /hpf (Few); Urobilinogen Urine 0.2 mg/dL (<2.0); WBC Urine 51-100 /hpf
[2023-06-21 11:05] LABS: Add Urine Microscopic? YES
[2023-06-21 11:14] LABS: Sodium Urine Random 6 meq/L
[2023-06-21 11:32] LABS: Procalcitonin 0.5 ng/mL
--- NOTE | 2023-06-21 13:00 | ADMGEN ---
This patient, Mariya Villanueva, was admitted to [facility] Surg Room 314-01. Patient/family oriented to hospital policies and general routines including ID bracelet, bed and alarms, visiting hours, pain management, procedures, bathroom and other care routines, personal items, smoking policy, room service/diet, and visiting hours. Information on how to activate the Rapid Response Team has been discussed. Patient/Family are encouraged to report perceived risks to care and to ask questions if they do not understand what they are told or what they should do.
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
[2023-06-21] MEDS: SODIUM CHLORIDE 0.9% IV 1,000 ML 125 ML IV CONT (14:29)
[2023-06-21 15:49] LABS: Influenza A QL RT-PCR Negative (Negative); Influenza B QL RT-PCR Negative (Negative); RSV RNA, RT-PCR Negative (Negative); SARS-CoV-2 RNA PCR Negative (Negative)
[2023-06-21 16:20] LABS: Glucose Point of Care 99 mg/dl (65-105)
--- NOTE | 2023-06-21 16:56 | PCRCNOTE ---
RT spoke to patient. Patient will see if her family can bring in her Home unit. RN aware.
[2023-06-21] MEDS: TRIAMCINOLONE ACET 0.1% OINT 80 GM TUBE 1 APPLIC TOPICAL (17:27)
[2023-06-21] MEDS: OMEGA 3 POLYUNSAT FATTY ACIDS 1 GM CAP PO (17:27)
[2023-06-21 21:54] LABS: Glucose Point of Care 135 mg/dl (65-105)
[2023-06-22] MEDS: SODIUM CHLORIDE 0.9% IV 1,000 ML 125 ML IV CONT ×3 (00:21→16:43)
[2023-06-22 06:00] VITALS: BP 102/32; PULSE 74; RESP 18; TEMP 36.1; O2SAT 97
[2023-06-22] MEDS: LEVOTHYROXINE SODIUM 50 MCG TABLET PO (06:04)
[2023-06-22 06:26] LABS: Basophils Percent Auto 0.3 % (0.2-1.2); Eosinophils Absolute Auto 0.5 K/mm3 (0-0.3); Eosinophils Percent Auto 6.1 % (0-4.4); Hematocrit 31.2 % (37.0-47.0); Hemoglobin 10.1 g/dL (12.0-15.0); Immature Granulocyte Absolute 0.03 K/mm3 (0.00-0.031); Immature Granulocyte Percent A 0.4 % (0-0.5); Lymphocytes Absolute Auto 1.45 K/mm3 (0.9-3.2); Lymphocytes Percent Auto 18.5 % (18.3-44.2); Mean Corpuscular HGB Conc 32.4 g/dl (32-36); Mean Corpuscular Hemoglobin 29.5 pg (26-34); Mean Corpuscular Volume 91.2 fl (80-100); Mean Platelet Volume 9.9 fl (7.4-10.4); Monocytes Absolute Auto 0.8 K/mm3 (0.1-0.6); Monocytes Percent Auto 10.2 % (2.6-8.5); Neutrophils Absolute Auto 5.1 K/mm3 (1.3-6.7); Neutrophils Percent Auto 64.5 % (45.5-73.1); Platelet Count Result 186 k/mm3 (150-375); Red Blood Count 3.42 M/mm3 (4.2-5.4); Red Cell Distribution Width 13.8 % (11.5-14.5); White Blood Count 7.9 K/mm3 (4.5-10.0)
[2023-06-22 06:48] LABS: Hemoglobin A1C 7.4 % (<5.7)
[2023-06-22 06:50] LABS: Alanine Aminotransferase 30 U/L (6-35); Albumin Level 3.9 g/dL (3.5-5.1); Alkaline Phosphatase 88 U/L (38-126); Anion Gap 11 mmol/L (8-16); Aspartate Amino Transferase 39 U/L (14-36); Bilirubin,Total 0.4 mg/dL (0.2-1.3); Blood Urea Nitrogen 52 mg/dL (7-17); Calcium 9.5 mg/dL (8.4-10.2); Carbon Dioxide 12 mmol/L (22-30); Chloride 110 mmol/L (98-107); Creatine Kinase 253 U/L (30-135); Estimated CRCL calculation 18 ml/min; Estimated Glomerular Filt Rate 17; Glucose 111 mg/dL (65-110); Lipase 508 U/L (23-300); Magnesium 1.6 mg/dL (1.6-2.3); Potassium 4.2 mmol/L (3.4-5.0); Sodium 133 mmol/L (137-145)
[2023-06-22] MEDS: PARoxetine 20 MG TABLET PO (07:48)
[2023-06-22] MEDS: MULTIVITAMINS THERAPEUTIC TAB (*BKC) 1 TABLET PO (07:48)
[2023-06-22] MEDS: PANTOPRAZOLE 40 MG TABLET PO (07:48)
[2023-06-22] MEDS: CHOLECALCIFEROL 400 UNITS TABLET (VIT D) PO (07:49)
[2023-06-22] MEDS: CYANOCOBALAMIN 500 MCG TABLET PO (07:49)
[2023-06-22] MEDS: TRIAMCINOLONE ACET 0.1% OINT 80 GM TUBE 1 APPLIC TOPICAL ×2 (07:49→16:43)
[2023-06-22] MEDS: MAGNESIUM OXIDE 400 MG TABLET PO (07:49)
[2023-06-22] MEDS: OMEGA 3 POLYUNSAT FATTY ACIDS 1 GM CAP PO ×2 (07:49→16:43)
[2023-06-22] MEDS: SODIUM BICARBONATE TAB 650 MG TABLET 1300 MG PO ×2 (07:49→16:43)
[2023-06-22 07:52] LABS: Glucose Point of Care 123 mg/dl (65-105)
--- NOTE | 2023-06-22 10:00 | PM.CNNEP ---
Assessment and Plan Assessment and plan (1) XANDER (acute kidney injury): Code(s): N17.9 - Acute kidney failure, unspecified Status: Acute Assessment and Plan: history would suggest volume depletion/dehydration previous creatinine last month 1.6mg/dl; however, prior to that value, creatinine was normal evaluation to date: CT of abd/pelvis and renal ultrasound without obstruction CPK mildly elevated but not enough to affect kidney function follow-up on urine studies improvement in creatinine with IVF resuscitation follow trend of repeat labs (2) Pancreatitis: Qualifiers: Acute pancreatitis complication: unspecified Chronicity: acute Pancreatitis type: unspecified pancreatitis type Qualified Code(s): K85.90 - Acute pancreatitis without necrosis or infection, unspecified Code(s): K85.90 - Acute pancreatitis without necrosis or infection, unspecified Status: Acute Assessment and Plan: elevated lipase on admission LFTS noted as well CT scan of abd/pelvis without any acute pathology trend labs (3) Type 2 diabetes mellitus: Code(s): E11.9 - Type 2 diabetes mellitus without complications Status: Acute Assessment and Plan: follow accu-cheks glycemic control per hospitalists I will continue to follow the patient with you while she remains hospitalized make further recommendations as deemed necessary. Thank you for allowing me to participate in care of this patient. History of Present Illness Reason for Consult Consult date: 06/22/23 Reason for consult: acute renal failure Chief Complaint Chief complaint: Acute Kidney Injury History of Present Illness Narrative: The patient is a 72-year-old female with a past medical history as outlined below who presented to [facility] Emergency room for further evaluation of nausea and vomiting. The patient reports that she has been having issues with nausea and vomiting that may going on since earlier this week, specifically, Sunday. At that time, she was able to tolerate oral intake but then by Sunday, she started developing on off vomiting and inability to tolerate oral intake. She tried [id number] Zofran which helped with her nausea to some degree but when she ran out of the medication, her nausea and vomiting continued. Furthermore, she has noted that her ileostomy output has become more liquid like but denies any associated abdominal pain. Given these constellation of symptoms, she presented to the ER for further assessment Workup and evaluation in the emergency room demonstrated the patient to be hemodynamically stable and in no acute distress although her blood pressure was intermittently soft. Routine blood [place] [address] with no significant anemia, mild hyponatremia of 133, and significant renal dysfunction with a creatinine of 4.0 mg per dL. Her lipase was noted to be elevated at 764 and her urinalysis was unremarkable. A subsequent CT scan of the abdomen pelvis demonstrated no CT findings to correlate with the patient's symptoms. Given her laboratory abnormalities and symptoms, she was initiated on IV fluids and subsequently admitted to the hospital for further evaluation and therapy. Since her admission, her renal function has improved significantly with her creatinine falling from 4.0 to 2.8 mg/dL just with IV fluid resuscitation. Furthermore, with IV antiemetics, she clinically feels better as well. Renal consultation was requested due to her acute kidney injury/ acute renal failure. From review records, the patient's baseline creatinine normally runs within the normal range although she did have labs done last month that showed a creatinine up to 1.6 mg/dL. However, as mentioned, prior to those labs, her renal function was well within normal limits. Surprisingly, in spite of her elevated creatinine on admission, she had no critical e
[2023-06-22 11:13] LABS: Glucose Point of Care 144 mg/dl (65-105)
[2023-06-22 13:57] VITALS: BP 105/41; PULSE 84; RESP 18; TEMP 37.2; O2SAT 98
[2023-06-22 14:15] VITALS: O2SAT 96
[2023-06-22 16:14] LABS: Glucose Point of Care 97 mg/dl (65-105)
[2023-06-22] MEDS: ONDANSETRON INJ 4 MG/2 ML VIAL IV PUSH (16:43)
--- NOTE | 2023-06-22 18:14 | PM.IMPN ---
Progress Note: A&P Assessment and Plan (1) Acute kidney injury superimposed on CKD: Code(s): N17.9 - Acute kidney failure, unspecified; N18.9 - Chronic kidney disease, unspecified Status: Acute Assessment and Plan: - Renal Function: 05/22/23 compared to 06/21/23 (ED workup/today) Creatinine 1.6 -> 4.0 BUN 32 -> 53 ECC 31 -> 12 GFR 32 -> 11 - suspect injury to kidney related to current nausea, vomiting, and dehydration with some underlying CKD. - IV fluids: 1L of NS, now at 125 mL/hr of NS - trend renal function - nephrology consulted, Falguni PEACOCK. Awaiting recs. - add CK 06/22 - Cr 2.8 - BUN 52 - ECC 18 - GFR 17 - CK 253 - IV fluids: 1L of NS, now at 125 mL/hr of NS - trend renal function (2) Pancreatitis: Qualifiers: Acute pancreatitis complication: unspecified Chronicity: acute Pancreatitis type: unspecified pancreatitis type Qualified Code(s): K85.90 - Acute pancreatitis without necrosis or infection, unspecified Code(s): K85.90 - Acute pancreatitis without necrosis or infection, unspecified Status: Acute Assessment and Plan: - Lipase: 764 - AST 49, ALT 41, and alk-phos 118. Total bilirubin 0.6. - WBC 17 - CT abd/pelvis: no CT correlate for the patient's symptoms Changes of cholecystectomy are noted. The liver, spleen, pancreas, and adrenal glands are normal. The kidneys are unremarkable. There are surgical changes of total colectomy with right lower quadrant ileostomy. No pathologically enlarged abdominal or pelvic lymph nodes are identified. No free intraperitoneal gas or evidence of bowel obstruction. - last episode of pancreatitis in Dec - antiemetics p.r.n. - tyl for pain - clear liquids - IV fluids - continue to trend lipase and LFTs - consult to analog ic design architect, re-educate on low fat/low residue diet 06/22- - lipase 508 - AST 39, ALT 30, and alk-phos 88. Total bilirubin 0.40. - WBC 7.9 - Denies abdominal pain at time of assessment, nausea decreased - IV fluids cont. - Advanced to low fat diet (3) Dehydration: Code(s): E86.0 - Dehydration Status: Acute Assessment and Plan: - suspect N/V secondary to pancreatitis given elevated lipase - IV fluids: 1L of NS, now at 125 mL/hr of NS - secondary XANDER superimposed on CKD 06/22 - IV fluids cont. - Symptoms and lab values improving - Na 133, BUN 52, Cr 2.80 (4) Type 2 diabetes mellitus: Code(s): E11.9 - Type 2 diabetes mellitus without complications Status: Acute Assessment and Plan: - Hypoglycemia protocol - POC blood glucose ACHS - home medication held - metformin - correct regimen ordered - low dose TIDWM and HS - A1C 5.8% on 12/2019, repeat in a.m. 06/22 - A1C 7.4% - Continue SSI - Diet advanced to low fat Plan Significant XANDER with creatinine of 4.0, previously 1.6. Additionally being treated for pancreatitis with subsequent dehydration. Lipase mildly elevated and no evidence of pancreatitis on CT, however done without contrast given XANDER. Continue to hydrate, pain control, antiemetics. Nephrology consulted. Home Meds/Chronic Conditions - majority of home medications resumed, statin and metformin held Diet: Clear liquids GI Prophylaxis: Continue home Nexium DVT Prophylaxis: SCDs Lines: pIV Code Status: Full Code creatinine today 2.8. Lipase 508. Continue to hydrate, pain control, antiemetics. Nephrology consulted. Time Spent With Patient Time with patient: 15 - 25 minutes Subjective Date/time seen: 06/22/23 1010 Interval history: Chief Complaint: Nausea, Vomiting Narrative: 72 y/o F presents here with nausea and vomiting with PMH CKD S3, HLD, GERD, hypothyroidism, ileostomy, DAVID on CPAP, DM2, pancreatitis, and ulcerative colitis. Patient presents here for evaluation nausea that has been ongoing since Sunday, 06/18. Patient was still able to tolerate PO on Sunday and Sunday. Then developed vomiting thi
[2023-06-22 18:42] LABS: Creatinine Urine 113.5 mg/dL; Total Protein Urine Random 16 mg/dL; Ur Ttl Prot Creatinine Ratio 0.14 mg/mg (0-0.20); Urea Random Urine 756 MG/DL
[2023-06-22 20:20] LABS: Glucose Point of Care 141 mg/dl (65-105)
[2023-06-22 20:24] LABS: Eosinophil Urine None Seen % (None Seen); Urine Eos QC 2nd Tech Confirmed
[2023-06-22 22:00] VITALS: BP 101/47; PULSE 80; RESP 16; TEMP 36; O2SAT 100
[2023-06-23 05:45] VITALS: BP 121/51; PULSE 72; RESP 18; TEMP 36.8; O2SAT 98
[2023-06-23 06:11] LABS: Basophils Percent Auto 0.2 % (0.2-1.2); Eosinophils Absolute Auto 0.3 K/mm3 (0-0.3); Eosinophils Percent Auto 7.5 % (0-4.4); Hematocrit 28.6 % (37.0-47.0); Hemoglobin 9.1 g/dL (12.0-15.0); Immature Granulocyte Absolute 0.01 K/mm3 (0.00-0.031); Immature Granulocyte Percent A 0.2 % (0-0.5); Lymphocytes Absolute Auto 1.19 K/mm3 (0.9-3.2); Lymphocytes Percent Auto 28.9 % (18.3-44.2); Mean Corpuscular HGB Conc 31.8 g/dl (32-36); Mean Corpuscular Hemoglobin 29.4 pg (26-34); Mean Corpuscular Volume 92.6 fl (80-100); Monocytes Absolute Auto 0.5 K/mm3 (0.1-0.6); Monocytes Percent Auto 12.4 % (2.6-8.5); Neutrophils Absolute Auto 2.1 K/mm3 (1.3-6.7); Neutrophils Percent Auto 50.8 % (45.5-73.1); Platelet Count Result 162 k/mm3 (150-375); Red Blood Count 3.09 M/mm3 (4.2-5.4); Red Cell Distribution Width 14.1 % (11.5-14.5); White Blood Count 4.1 K/mm3 (4.5-10.0)
[2023-06-23] MEDS: LEVOTHYROXINE SODIUM 50 MCG TABLET PO (06:30)
[2023-06-23] MEDS: SODIUM CHLORIDE 0.9% IV 1,000 ML 75 ML IV CONT (06:30)
[2023-06-23 06:35] LABS: Alanine Aminotransferase 29 U/L (6-35); Albumin Level 3.5 g/dL (3.5-5.1); Alkaline Phosphatase 79 U/L (38-126); Anion Gap 7 mmol/L (8-16); Aspartate Amino Transferase 37 U/L (14-36); Bilirubin,Total 0.3 mg/dL (0.2-1.3); Blood Urea Nitrogen 35 mg/dL (7-17); Calcium 8.6 mg/dL (8.4-10.2); Carbon Dioxide 18 mmol/L (22-30); Chloride 113 mmol/L (98-107); Estimated CRCL calculation 35 ml/min; Estimated Glomerular Filt Rate 37; Glucose 122 mg/dL (65-110); Potassium 3.8 mmol/L (3.4-5.0); Sodium 138 mmol/L (137-145)
[2023-06-23 07:16] LABS: Creatine Kinase 173 U/L (30-135)
[2023-06-23] MEDS: SODIUM BICARBONATE TAB 650 MG TABLET 1300 MG PO ×2 (07:44→16:29)
[2023-06-23] MEDS: MULTIVITAMINS THERAPEUTIC TAB (*BKC) 1 TABLET PO (07:44)
[2023-06-23] MEDS: PARoxetine 20 MG TABLET PO (07:44)
[2023-06-23] MEDS: OMEGA 3 POLYUNSAT FATTY ACIDS 1 GM CAP PO ×2 (07:44→16:29)
[2023-06-23] MEDS: CYANOCOBALAMIN 500 MCG TABLET PO (07:44)
[2023-06-23] MEDS: MAGNESIUM OXIDE 400 MG TABLET PO (07:44)
[2023-06-23] MEDS: CHOLECALCIFEROL 400 UNITS TABLET (VIT D) PO (07:44)
[2023-06-23] MEDS: TRIAMCINOLONE ACET 0.1% OINT 80 GM TUBE 1 APPLIC TOPICAL ×2 (07:45→16:29)
[2023-06-23] MEDS: PANTOPRAZOLE 40 MG TABLET PO (07:45)
[2023-06-23 07:49] LABS: Glucose Point of Care 125 mg/dl (65-105)
--- NOTE | 2023-06-23 08:51 | PM.IMPN ---
Progress Note: A&P Assessment and Plan (1) Acute kidney injury superimposed on CKD: Code(s): N17.9 - Acute kidney failure, unspecified; N18.9 - Chronic kidney disease, unspecified Status: Acute Assessment and Plan: - Renal Function: 05/22/23 compared to 06/21/23 (ED workup/today) Creatinine 1.6 -> 4.0 BUN 32 -> 53 ECC 31 -> 12 GFR 32 -> 11 - suspect injury to kidney related to current nausea, vomiting, and dehydration with some underlying CKD. - IV fluids: 1L of NS, now at 125 mL/hr of NS - trend renal function - nephrology consulted, Falguni PEACOCK. Awaiting recs. - add CK 06/22 - Cr 2.8 - BUN 52 - ECC 18 - GFR 17 - CK 253 - IV fluids: 1L of NS, now at 125 mL/hr of NS - trend renal function 06/23 - Cr 1.4 - BUN 35 - ECC 35 - GFR 37 - CK 173 - IV fluids DC'd- Patient without nausea, tolerating diet. - Trend labs in am (2) Pancreatitis: Qualifiers: Acute pancreatitis complication: unspecified Chronicity: acute Pancreatitis type: unspecified pancreatitis type Qualified Code(s): K85.90 - Acute pancreatitis without necrosis or infection, unspecified Code(s): K85.90 - Acute pancreatitis without necrosis or infection, unspecified Status: Acute Assessment and Plan: - Lipase: 764 - AST 49, ALT 41, and alk-phos 118. Total bilirubin 0.6. - WBC 17 - CT abd/pelvis: no CT correlate for the patient's symptoms Changes of cholecystectomy are noted. The liver, spleen, pancreas, and adrenal glands are normal. The kidneys are unremarkable. There are surgical changes of total colectomy with right lower quadrant ileostomy. No pathologically enlarged abdominal or pelvic lymph nodes are identified. No free intraperitoneal gas or evidence of bowel obstruction. - last episode of pancreatitis in Dec - antiemetics p.r.n. - tyl for pain - clear liquids - IV fluids - continue to trend lipase and LFTs - consult to punch press operator, re-educate on low fat/low residue diet 06/22- - lipase 508 - AST 39, ALT 30, and alk-phos 88. Total bilirubin 0.40. - WBC 7.9 - Denies abdominal pain at time of assessment, nausea decreased - IV fluids cont. - Advanced to low fat diet 06/23 - AST 37, ALT 29, and alk-phos 79. Total bilirubin 0.30. - WBC 4.1 - Continues to be without abdominal pain. Denies nausea - tolerated low fat diet - IV fluids discontinued (3) Dehydration: Code(s): E86.0 - Dehydration Status: Acute Assessment and Plan: - suspect N/V secondary to pancreatitis given elevated lipase - IV fluids: 1L of NS, now at 125 mL/hr of NS - secondary XANDER superimposed on CKD 06/22 - IV fluids cont. - Symptoms and lab values improving - Na 133, BUN 52, Cr 2.80 06/23 - Symptoms improved with adequate hydration - IV fluids DC'd as patient is tolerating orals without issues. (4) Type 2 diabetes mellitus: Code(s): E11.9 - Type 2 diabetes mellitus without complications Status: Acute Assessment and Plan: - Hypoglycemia protocol - POC blood glucose ACHS - home medication held - metformin - correct regimen ordered - low dose TIDWM and HS - A1C 5.8% on 12/2019, repeat in a.m. 06/22 - A1C 7.4% - Continue SSI - Diet advanced to low fat 06/23 - Continue current managment Plan Significant XANDER with creatinine of 4.0, previously 1.6. Additionally being treated for pancreatitis with subsequent dehydration. Lipase mildly elevated and no evidence of pancreatitis on CT, however done without contrast given XANDER. Continue to hydrate, pain control, antiemetics. Nephrology consulted. Home Meds/Chronic Conditions - majority of home medications resumed, statin and metformin held Diet: Clear liquids GI Prophylaxis: Continue home Nexium DVT Prophylaxis: SCDs Lines: pIV Code Status: Full Code creatinine today 2.8. Lipase 508. Continue to hydrate, pain control, antiemetics. Nephrology consulted. Time Spent With Patient Time with kierra
[2023-06-23 11:20] LABS: Glucose Point of Care 121 mg/dl (65-105)
--- NOTE | 2023-06-23 11:31 | P.PNNP_ITS ---
Progress Note: A&P Assessment and Plan (1) XANDER (acute kidney injury): Code(s): N17.9 - Acute kidney failure, unspecified Status: Acute Assessment and Plan: * ongoing improvement noted * history would suggest volume depletion/dehydration * previous creatinine last month 1.6mg/dl; however, prior to that value, cre atinine was normal * evaluation to date: * CT of abd/pelvis and renal ultrasound without obstruction * CPK mildly elevated but not enough to affect kidney function * urine eosinophils negative * urine electrolytes prerenal * follow trend of repeat labs (2) Pancreatitis: Qualifiers: Acute pancreatitis complication: unspecified Chronicity: acute Pancreatitis type: unspecified pancreatitis type Qualified Code(s): K85.90 - Acute pancreatitis without necrosis or infection, unspecified Code(s): K85.90 - Acute pancreatitis without necrosis or infection, unspecified Status: Acute Assessment and Plan: * elevated lipase on admission * LFTS noted as well * CT scan of abd/pelvis without any acute pathology * trend labs (3) Type 2 diabetes mellitus: Code(s): E11.9 - Type 2 diabetes mellitus without complications Status: Acute Assessment and Plan: * follow accu-cheks * glycemic control per hospitalists Will continue to follow. Subjective Date/time seen: 06/23/23 11:31 Interval history: Follow-up for acute kidney injury/acute renal failure. Renal function continues to improve with current therapy/interventions; nausea/vomiting seems to have improved if not resolved' no apparent distress noted; no issues/events overnight or earlier this morning. Exam Narrative: General: elderly but WD/WN female in NAD Heart: normal S1 and S2; no rub Lungs: clear to auscultation Abdomen: soft, nontender, nondistended, positive bowel sounds Extremities: no cyanosis or clubbing; no edema Skin: warm and dry Objective Data Vital Signs Vital Signs: Vital Signs Temp Pulse Resp BP Pulse Ox O2 Del Method 06/23/23 11:00 96.8 F L 75 18 122/51 L 100 06/23/23 08:00 Room Air 06/23/23 05:45 98.2 F 72 18 121/51 L 98 06/22/23 22:00 96.8 F L 80 16 101/47 L 100 Intake/Output Intake/Output: Intake & Output 06/20/23 06/21/23 06/22/2324 23:59 23:59 23:59 23:59 Intake Total 3729 3310 2120 Output Total 200 900 300 Balance 3289 9789 7123 Meds/Results Medications: Active Medications Generic Name Dose Route Start Last Admin Trade Name Freq PRN Reason Stop Dose Admin Acetaminophen 650 mg 06/21/23 11:00 06/23/23 16:28 Acetaminophen 325 Mg Tablet PO 650 mg Q4H PRN Administration Mild Pain (1-3) or Fever Albuterol 1 puff 06/21/23 14:50 Albuterol Sulfate (*Sp) Aerosol 1 Puff INHALATION Q4H PRN shortness of breath or wheezing Cyanocobalamin 500 mcg 06/22/23 09:00 06/23/23 07:44 Cyanocobalamin 500 Mcg Tablet PO 500 mcg DAILY GAUTAM Administration Dextrose 12.5 gm 06/21/23 14:52 Dextrose 50% 25 Gm/50 Ml Syringe IV PUSH PRN PRN Hypoglycemia Protocol
--- NOTE | 2023-06-23 11:31 | PM.PNNEP ---
Progress Note: A&P Assessment and Plan (1) XANDER (acute kidney injury): Code(s): N17.9 - Acute kidney failure, unspecified Status: Acute Assessment and Plan: ongoing improvement noted history would suggest volume depletion/dehydration previous creatinine last month 1.6mg/dl; however, prior to that value, creatinine was normal evaluation to date: CT of abd/pelvis and renal ultrasound without obstruction CPK mildly elevated but not enough to affect kidney function urine eosinophils negative urine electrolytes prerenal follow trend of repeat labs (2) Pancreatitis: Qualifiers: Acute pancreatitis complication: unspecified Chronicity: acute Pancreatitis type: unspecified pancreatitis type Qualified Code(s): K85.90 - Acute pancreatitis without necrosis or infection, unspecified Code(s): K85.90 - Acute pancreatitis without necrosis or infection, unspecified Status: Acute Assessment and Plan: elevated lipase on admission LFTS noted as well CT scan of abd/pelvis without any acute pathology trend labs (3) Type 2 diabetes mellitus: Code(s): E11.9 - Type 2 diabetes mellitus without complications Status: Acute Assessment and Plan: follow accu-cheks glycemic control per hospitalists Will continue to follow. Subjective Date/time seen: 06/23/23 11:31 Interval history: Follow-up for acute kidney injury/acute renal failure. Renal function continues to improve with current therapy/interventions; nausea/vomiting seems to have improved if not resolved' no apparent distress noted; no issues/events overnight or earlier this morning. Exam Narrative: General: elderly but WD/WN female in NAD Heart: normal S1 and S2; no rub Lungs: clear to auscultation Abdomen: soft, nontender, nondistended, positive bowel sounds Extremities: no cyanosis or clubbing; no edema Skin: warm and dry Objective Data Vital Signs Vital Signs: Vital Signs Temp Pulse Resp BP Pulse Ox O2 Del Method 06/23/23 11:00 96.8 F L 75 18 122/51 L 100 06/23/23 08:00 Room Air 06/23/23 05:45 98.2 F 72 18 121/51 L 98 06/22/23 22:00 96.8 F L 80 16 101/47 L 100 Intake/Output Intake/Output: Intake & Output 06/20/23 06/21/23 06/22/23 06/23/23 23:59 23:59 23:59 23:59 Intake Total 4879 4854 2120 Output Total 200 900 300 Balance 2118 2461 1820 Meds/Results Medications: Active Medications Generic Name Dose Route Start Last Admin Trade Name Bar PRN Reason Stop Dose Admin Acetaminophen 650 mg 06/21/23 11:00 06/23/23 16:28 Acetaminophen 325 Mg Tablet PO 650 mg Q4H PRN Administration Mild Pain (1-3) or Fever Albuterol 1 puff 06/21/23 14:50 Albuterol Sulfate (*Sp) Aerosol 1 Puff INHALATION Q4H PRN shortness of breath or wheezing Cyanocobalamin 500 mcg 06/22/23 09:00 06/23/23 07:44 Cyanocobalamin 500 Mcg Tablet PO 500 mcg DAILY GAUTAM Administration Dextrose 12.5 gm 06/21/23 14:52 Dextrose 50% 25 Gm/50 Ml Syringe IV PUSH PRN PRN Hypoglycemia Protocol Fish Oil 1 gm 06/21/23 17:00 06/23/23 16:29 Center 3 Polyunsat Fatty Acids 1 Gm Cap PO 1 gm BID GAUTAM Administration Glucagon 1 mg 06/21/23 14:52 Glucagon For Inj 1 Mg Vial IM PRN PRN Hypoglycemia Protocol Glucose 15 gm 06/21/23 14:52 Glucose Oral Gel 15 Gm Of Glucse In 37.5 Gm Tube PO PRN PRN Hypoglycemia Protocol Sodium Chloride 1,000 mls @ 75 mls/hr 06/21/23 11:00 06/23/23 10:36 Normal Saline Iv IV CONT Not Given .[id number] [facility] Dextrose 1,000 mls @ 100 mls/hr 06/21/23 14:52 Dextrose 5% 1,000 Ml IVPB PRN PRN Hypoglycemia Protocol Insulin Aspart 2 - 5 units 06/21/23 17:00 06/23/23 16:26 Insulin Aspart (*Bkc) 100 Units/Ml SUB-Q Not Given TIDWM [facility] Protocol Insulin Aspart 1 - 2 units 06/21/23 21:00 06/22/23 21
[2023-06-23 14:00] VITALS: BP 122/51; PULSE 75; RESP 18; TEMP 36; O2SAT 100
[2023-06-23 15:13] VITALS: O2SAT 98
[2023-06-23 16:14] LABS: Glucose Point of Care 129 mg/dl (65-105)
[2023-06-23] MEDS: ACETAMINOPHEN 325 MG TABLET 650 MG PO (16:28)
--- NOTE | 2023-06-23 18:29 | PC.NURSE ---
Pt. educated on need for stool sample. Left supplies to collect specimen in patient bathroom with patient verbalizing understanding to let nursing staff know once specimen is collected.
[2023-06-23 20:46] LABS: Glucose Point of Care 119 mg/dl (65-105)
[2023-06-23 21:17] VITALS: BP 115/52; PULSE 71; RESP 20; TEMP 36.4; O2SAT 93
[2023-06-23 22:23] VITALS: PULSE 70; O2SAT 93
[2023-06-23 22:37] LABS: IFOB Positive Control Positive; Immunochemical Fecal Occult Bl Negative (N)
[2023-06-24 06:00] VITALS: BP 112/52; PULSE 73; RESP 20; TEMP 36.8; O2SAT 98
[2023-06-24 06:46] LABS: Basophils Percent Auto 0.4 % (0.2-1.2); Eosinophils Absolute Auto 0.3 K/mm3 (0-0.3); Eosinophils Percent Auto 5.9 % (0-4.4); Hematocrit 31.3 % (37.0-47.0); Hemoglobin 9.9 g/dL (12.0-15.0); Immature Granulocyte Absolute 0.01 K/mm3 (0.00-0.031); Immature Granulocyte Percent A 0.2 % (0-0.5); Lymphocytes Absolute Auto 1.27 K/mm3 (0.9-3.2); Lymphocytes Percent Auto 26.8 % (18.3-44.2); Mean Corpuscular HGB Conc 31.6 g/dl (32-36); Mean Corpuscular Hemoglobin 29.2 pg (26-34); Mean Corpuscular Volume 92.3 fl (80-100); Monocytes Absolute Auto 0.4 K/mm3 (0.1-0.6); Neutrophils Absolute Auto 2.8 K/mm3 (1.3-6.7); Neutrophils Percent Auto 58.7 % (45.5-73.1); Platelet Count Result 172 k/mm3 (150-375); Red Blood Count 3.39 M/mm3 (4.2-5.4); Red Cell Distribution Width 14.3 % (11.5-14.5); White Blood Count 4.7 K/mm3 (4.5-10.0)
[2023-06-24 07:00] LABS: Alanine Aminotransferase 30 U/L (6-35); Albumin Level 3.7 g/dL (3.5-5.1); Alkaline Phosphatase 78 U/L (38-126); Anion Gap 7 mmol/L (8-16); Aspartate Amino Transferase 37 U/L (14-36); Bilirubin,Total 0.2 mg/dL (0.2-1.3); Blood Urea Nitrogen 27 mg/dL (7-17); Calcium 8.4 mg/dL (8.4-10.2); Carbon Dioxide 21 mmol/L (22-30); Chloride 114 mmol/L (98-107); Estimated CRCL calculation 44 ml/min; Estimated Glomerular Filt Rate 49; Glucose 120 mg/dL (65-110); Lipase 690 U/L (23-300); Potassium 3.9 mmol/L (3.4-5.0); Sodium 142 mmol/L (137-145)
[2023-06-24 08:08] LABS: Glucose Point of Care 126 mg/dl (65-105)
[2023-06-24] MEDS: TRIAMCINOLONE ACET 0.1% OINT 80 GM TUBE 1 APPLIC TOPICAL (08:22)
--- NOTE | 2023-06-24 08:22 | PM.DS ---
DS: Admitting Diagnosis Discharge Date 06/24/23 Admitting Diagnosis N/V, XANDER, UTI DS: Discharge Diagnosis Discharge Diagnosis (1) Acute kidney injury superimposed on CKD: Code(s): N17.9 - Acute kidney failure, unspecified; N18.9 - Chronic kidney disease, unspecified Status: Acute Assessment and Plan: - Renal Function: 05/22/23 compared to 06/21/23 (ED workup/today) Creatinine 1.6 -> 4.0 BUN 32 -> 53 ECC 31 -> 12 GFR 32 -> 11 - suspect injury to kidney related to current nausea, vomiting, and dehydration with some underlying CKD. - IV fluids: 1L of NS, now at 125 mL/hr of NS - trend renal function - nephrology consulted, Falguni PEACOCK. Awaiting recs. - add CK 06/22 - Cr 2.8 - BUN 52 - ECC 18 - GFR 17 - CK 253 - IV fluids: 1L of NS, now at 125 mL/hr of NS - trend renal function 06/23 - Cr 1.4 - BUN 35 - ECC 35 - GFR 37 - CK 173 - IV fluids DC'd- Patient without nausea, tolerating diet. - Trend labs in am 06/24 - Cr 1.1 - BUN 27 - ECC 44 - GFR 49 - Nephrology was consulted and Hospitalist services appreciates the collaboration in care. Nephrology note that patient has improved and is stable to discharge. She will discharge home today (2) Pancreatitis: Qualifiers: Acute pancreatitis complication: unspecified Chronicity: acute Pancreatitis type: unspecified pancreatitis type Qualified Code(s): K85.90 - Acute pancreatitis without necrosis or infection, unspecified Code(s): K85.90 - Acute pancreatitis without necrosis or infection, unspecified Status: Acute Assessment and Plan: - Lipase: 764 - AST 49, ALT 41, and alk-phos 118. Total bilirubin 0.6. - WBC 17 - CT abd/pelvis: no CT correlate for the patient's symptoms Changes of cholecystectomy are noted. The liver, spleen, pancreas, and adrenal glands are normal. The kidneys are unremarkable. There are surgical changes of total colectomy with right lower quadrant ileostomy. No pathologically enlarged abdominal or pelvic lymph nodes are identified. No free intraperitoneal gas or evidence of bowel obstruction. - last episode of pancreatitis in Dec - antiemetics p.r.n. - tyl for pain - clear liquids - IV fluids - continue to trend lipase and LFTs - consult to junior technical writer, re-educate on low fat/low residue diet 06/22- - lipase 508 - AST 39, ALT 30, and alk-phos 88. Total bilirubin 0.40. - WBC 7.9 - Denies abdominal pain at time of assessment, nausea decreased - IV fluids cont. - Advanced to low fat diet 06/23 - AST 37, ALT 29, and alk-phos 79. Total bilirubin 0.30. - WBC 4.1 - Continues to be without abdominal pain. Denies nausea - tolerated low fat diet - IV fluids discontinued 06/24 - AST 37, ALT 30, and alk-phos 78. Total bilirubin 0.20. - WBC 4.7 - Continues to be without abdominal pain. Denies nausea - tolerated low fat diet - Patient will discharge home today as she is without pain. - Continue low fat diet (3) Dehydration: Code(s): E86.0 - Dehydration Status: Acute Assessment and Plan: - suspect N/V secondary to pancreatitis given elevated lipase - IV fluids: 1L of NS, now at 125 mL/hr of NS - secondary XANDER superimposed on CKD 06/22 - IV fluids cont. - Symptoms and lab values improving - Na 133, BUN 52, Cr 2.80 06/23 - Symptoms improved with adequate hydration - IV fluids DC'd as patient is tolerating orals without issues. 06/24 - Symptoms and lab values improving - Na 142, BUN 27, Cr 1.1 (4) Type 2 diabetes mellitus: Code(s): E11.9 - Type 2 diabetes mellitus without complications Status: Acute Assessment and Plan: - Hypoglycemia protocol - POC blood glucose ACHS - home medication held - metformin - correct regimen ordered - low dose TIDWM and HS - A1C 5.8% on 12/2019, repeat in a.m. 06/22 - A1C 7.4% - Continue SSI - Diet advanced to low fat 06/23 - Continue current managment 06/24 - AM glucose 120 - Continue home med
[2023-06-24] MEDS: CHOLECALCIFEROL 400 UNITS TABLET (VIT D) PO (08:23)
[2023-06-24] MEDS: CYANOCOBALAMIN 500 MCG TABLET PO (08:23)
[2023-06-24] MEDS: MAGNESIUM OXIDE 400 MG TABLET PO (08:23)
[2023-06-24] MEDS: PANTOPRAZOLE 40 MG TABLET PO (08:23)
[2023-06-24] MEDS: SODIUM BICARBONATE TAB 650 MG TABLET 1300 MG PO (08:23)
[2023-06-24] MEDS: OMEGA 3 POLYUNSAT FATTY ACIDS 1 GM CAP PO (08:24)
[2023-06-24] MEDS: MULTIVITAMINS THERAPEUTIC TAB (*BKC) 1 TABLET PO (08:24)
[2023-06-24] MEDS: PARoxetine 20 MG TABLET PO (08:24)
[2023-06-24 12:23] LABS: Glucose Point of Care 101 mg/dl (65-105)
[2023-06-25 19:53] LABS: Osmolality, Urine 491 mOsm/kg (50-1200)
== END 2023-06-24 13:40 | disposition home or self-care (01) | DRG 682 ==
LOC: ANHED 08:33 → ANH3MEDSUR 13:37
PROVIDERS: Internal Medicine Nephrology; Student in an Organized Health Care Education/Training Program; Admitting Provider General Practice; Emergency Provider Emergency Medicine; PCP Family Medicine; Visit Provider Nurse Practitioner Family
DX: N17.9 Acute kidney failure, unspecified (principal); K85.90 Acute pancreatitis without necrosis or infection, unspecified; E87.1 Hypo-osmolality and hyponatremia; E11.22 Type 2 diabetes mellitus with diabetic chronic kidney disease; E86.0 Dehydration; N18.30 Chronic kidney disease, stage 3 unspecified; E78.5 Hyperlipidemia, unspecified; E03.9 Hypothyroidism, unspecified; G47.33 Obstructive sleep apnea (adult) (pediatric); K21.9 Gastro-esophageal reflux disease without esophagitis; Z96.642 Presence of left artificial hip joint; Z96.652 Presence of left artificial knee joint; Z20.822 Contact with and (suspected) exposure to COVID-19; Z90.49 Acquired absence of other specified parts of digestive tract; Z93.2 Ileostomy status; Z87.891 Personal history of nicotine dependence; Z79.84 Long term (current) use of oral hypoglycemic drugs; Z87.19 Personal history of other diseases of the digestive system
CPT/HCPCS: 36415; 74176; 76775; 80053; 80076; 81001; 81050; 82274; 82550; 82570; 82948; 83036; 83690; 83735; 83935; 84145; 84156; 84300; 84540; 85025; 85999; 87086; 87637; 96361; 96374; 96375; 96376; 99285; A9270; G0378; J0696; J2405; J7030

== ENCOUNTER 2023-07-07 12:57 | Inpatient (IN) | payer MEDICARE, SELFPAY ==
[2023-07-07] VITALS (12 sets, daily range): BP systolic 102–119; BP diastolic 44–60; PULSE 78–102; RESP 14–20; TEMP 36–36.3; O2SAT 94–99; BMI 32.5
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
[2023-07-07] MEDS: SODIUM CHLORIDE 0.9% IV 1,000 ML 999 ML IV CONT (13:32)
[2023-07-07] MEDS: ONDANSETRON INJ 4 MG/2 ML VIAL IV PUSH (13:33)
[2023-07-07 13:45] LABS: Basophils Percent Auto 0.4 % (0.2-1.2); Eosinophils Absolute Auto 0.1 K/mm3 (0-0.3); Eosinophils Percent Auto 2.4 % (0-4.4); Hematocrit 34.9 % (37.0-47.0); Hemoglobin 11.5 g/dL (12.0-15.0); Immature Granulocyte Absolute 0.01 K/mm3 (0.00-0.031); Immature Granulocyte Percent A 0.2 % (0-0.5); Lymphocytes Percent Auto 19.7 % (18.3-44.2); Mean Corpuscular Hemoglobin 29.3 pg (26-34); Mean Corpuscular Volume 88.8 fl (80-100); Mean Platelet Volume 9.8 fl (7.4-10.4); Monocytes Absolute Auto 0.4 K/mm3 (0.1-0.6); Neutrophils Absolute Auto 3.1 K/mm3 (1.3-6.7); Neutrophils Percent Auto 68.3 % (45.5-73.1); Platelet Count Result 205 k/mm3 (150-375); Red Blood Count 3.93 M/mm3 (4.2-5.4); Red Cell Distribution Width 13.8 % (11.5-14.5); White Blood Count 4.6 K/mm3 (4.5-10.0)
[2023-07-07 13:55] LABS: Alanine Aminotransferase 31 U/L (6-35); Albumin Level 4.7 g/dL (3.5-5.1); Alkaline Phosphatase 89 U/L (38-126); Anion Gap 14 mmol/L (8-16); Aspartate Amino Transferase 42 U/L (14-36); Bilirubin,Total 0.5 mg/dL (0.2-1.3); Blood Urea Nitrogen 60 mg/dL (7-17); Calcium 10.3 mg/dL (8.4-10.2); Carbon Dioxide 15 mmol/L (22-30); Chloride 100 mmol/L (98-107); Estimated CRCL calculation 16 ml/min; Estimated Glomerular Filt Rate 15; Glucose 123 mg/dL (65-110); Lipase 321 U/L (23-300); Potassium 4.5 mmol/L (3.4-5.0); Sodium 129 mmol/L (137-145)
[2023-07-07 14:21] LABS: Influenza A QL RT-PCR Negative (Negative); Influenza B QL RT-PCR Negative (Negative); SARS-CoV-2 RNA PCR Negative (Negative)
[2023-07-07 14:27] LABS: Appearance Urine Clear (Clear); Bilirubin Urine Negative (Negative); Blood Urine Negative (Negative); Color Urine Yellow (Yellow); Glucose Urine UA Negative (Negative); Ketones Urine Negative (Negative); Leukocyte Esterase Ur Negative LEU/UL (Negative); Nitrate Urine Negative (Negative); Protein Urine Negative (Negative); Specific Grav Ur 1.009 (1.001-1.035); Urobilinogen Urine 0.2 mg/dL (<2.0)
[2023-07-07 14:30] LABS: Creatinine Urine 121.8 mg/dL
[2023-07-07 14:38] LABS: Add Urine Microscopic? NO
[2023-07-07 15:31] LABS: Sodium Urine Random 5 meq/L
[2023-07-07] MEDS: PROCHLORPERAZINE EDISYLATE 10 MG/2 ML VIAL 5 MG IV PUSH (17:06)
[2023-07-07] MEDS: SODIUM CHLORIDE 0.9% IV 1,000 ML 125 ML IV CONT (17:09)
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
--- NOTE | 2023-07-07 18:50 | PC.NURSE ---
This patient, Mariya Villanueva, was admitted to [facility] Surg Room 328-01. Patient/family oriented to hospital policies and general routines including ID bracelet, bed and alarms, visiting hours, pain management, procedures, bathroom and other care routines, personal items, smoking policy, room service/diet, and visiting hours. Information on how to activate the Rapid Response Team has been discussed. Patient/Family are encouraged to report perceived risks to care and to ask questions if they do not understand what they are told or what they should do.
[2023-07-07 20:52] LABS: Fractional Inspired Oxygen 21 %; HCO3 VBG 17.2 mEq/l (24.0-30.0); PCO2 VBG 40.7 mmHg (42.0-48.0); PO2 VBG 36.1 mmHg (35.0-45.0)
[2023-07-07 20:54] LABS: Device ROOM AIR; pH VBG 7.245 (7.300-7.400)
[2023-07-07 21:06] LABS: Anion Gap 12 mmol/L (8-16); Blood Urea Nitrogen 56 mg/dL (7-17); Calcium 9.8 mg/dL (8.4-10.2); Carbon Dioxide 15 mmol/L (22-30); Chloride 104 mmol/L (98-107); Estimated CRCL calculation 20 ml/min; Estimated Glomerular Filt Rate 19; Glucose 108 mg/dL (65-110); Potassium 4.3 mmol/L (3.4-5.0); Sodium 131 mmol/L (137-145)
[2023-07-07 21:21] LABS: Hemoglobin A1C 7.1 % (<5.7)
[2023-07-07 22:20] LABS: Glucose Point of Care 117 mg/dl (65-105)
[2023-07-07] MEDS: SODIUM BICARBONATE TAB 650 MG TABLET PO (23:13)
[2023-07-07] MEDS: TRIAMCINOLONE ACET 0.1% OINT 15 GM TUBE 1 APPLIC TOPICAL (23:13)
[2023-07-07] MEDS: MAGNESIUM SULFATE 3GM/D5W100ML 3 GM/100 ML BAG IVPB (23:13)
[2023-07-07] MEDS: OMEGA 3 POLYUNSAT FATTY ACIDS 1 GM CAP PO (23:13)
[2023-07-08] VITALS (10 sets, daily range): BP systolic 106–123; BP diastolic 38–47; PULSE 70–83; RESP 16–19; TEMP 36.4–36.6; O2SAT 94–98
--- NOTE | 2023-07-08 01:56 | PC.NURSE ---
Daylight Savings Time For Daylight Savings Time Ending in the Fall - Clocks are moved back. For Daylight Savings Time Beginning in the Spring - Clocks are moved ahead. For [facility], the time of change occurs at 0200 hrs. Time is taken from the counter server. This entry on the patient's chart recognizes the change in time reflected during documentation. Example: 2 entries for vital signs may be charted for 0200 hrs.
[2023-07-08] MEDS: LEVOTHYROXINE SODIUM 50 MCG TABLET PO (05:53)
[2023-07-08 05:56] LABS: Toxigenic C. Diff NEGATIVE (NEGATIVE)
[2023-07-08 06:16] LABS: Hemoglobin 10.5 g/dL (12.0-15.0); Mean Corpuscular HGB Conc 31.8 g/dl (32-36); Mean Corpuscular Hemoglobin 28.8 pg (26-34); Mean Corpuscular Volume 90.4 fl (80-100); Mean Platelet Volume 9.8 fl (7.4-10.4); Platelet Count Result 204 k/mm3 (150-375); Red Blood Count 3.65 M/mm3 (4.2-5.4); Red Cell Distribution Width 13.9 % (11.5-14.5); White Blood Count 6.1 K/mm3 (4.5-10.0)
[2023-07-08 06:24] LABS: Anion Gap 11 mmol/L (8-16); Blood Urea Nitrogen 56 mg/dL (7-17); Calcium 9.8 mg/dL (8.4-10.2); Carbon Dioxide 17 mmol/L (22-30); Chloride 105 mmol/L (98-107); Estimated CRCL calculation 22 ml/min; Estimated Glomerular Filt Rate 21; Glucose 116 mg/dL (65-110); Potassium 4.3 mmol/L (3.4-5.0); Sodium 133 mmol/L (137-145)
[2023-07-08 07:50] LABS: Glucose Point of Care 119 mg/dl (65-105)
[2023-07-08] MEDS: CHOLECALCIFEROL 400 UNITS TABLET (VIT D) PO (09:04)
[2023-07-08] MEDS: MULTIVITAMINS THERAPEUTIC TAB (*BKC) 1 TABLET PO (09:04)
[2023-07-08] MEDS: MAGNESIUM OXIDE 400 MG TABLET PO (09:04)
[2023-07-08] MEDS: PARoxetine 20 MG TABLET PO (09:04)
[2023-07-08] MEDS: SODIUM BICARBONATE TAB 650 MG TABLET PO ×2 (09:05→16:57)
[2023-07-08] MEDS: CYANOCOBALAMIN 500 MCG TABLET PO (09:05)
[2023-07-08] MEDS: ROSUVASTATIN 10 MG TABLET 40 MG PO (09:05)
[2023-07-08] MEDS: OMEGA 3 POLYUNSAT FATTY ACIDS 1 GM CAP PO ×2 (09:05→16:57)
[2023-07-08] MEDS: WATER FOR IRRIGATION, STERILE 1,000 ML BOTTLE 1000 ML (09:06)
[2023-07-08] MEDS: SODIUM CHLORIDE 0.9% IV 1,000 ML 125 ML IV CONT ×2 (09:09→17:00)
[2023-07-08 09:16] LABS: Free T4 Free Thyroxine Reflex 0.82 ng/dL (0.78-2.19)
[2023-07-08 10:27] LABS: Total Triiodothyronine (T3) 1.04 NG/ML (0.97-1.69)
[2023-07-08 12:05] LABS: Glucose Point of Care 113 mg/dl (65-105)
--- NOTE | 2023-07-08 12:45 | PM.IMPN ---
Progress Note: A&P Assessment and Plan (1) Acute on chronic kidney failure: Code(s): N17.9 - Acute kidney failure, unspecified; N18.9 - Chronic kidney disease, unspecified Status: Acute (2) Metabolic acidosis: Code(s): E87.20 - Acidosis, unspecified Status: Acute (3) Dehydration: Code(s): E86.0 - Dehydration Status: Acute (4) Diarrhea: Code(s): R19.7 - Diarrhea, unspecified Status: Acute (5) Hypothyroidism: Qualifiers: Hypothyroidism type: unspecified Qualified Code(s): E03.9 - Hypothyroidism, unspecified Code(s): E03.9 - Hypothyroidism, unspecified Status: Acute (6) Obstructive sleep apnea on CPAP: Code(s): G47.33 - Obstructive sleep apnea (adult) (pediatric); Z99.89 - Dependence on other enabling machines and devices Status: Acute (7) Type 2 diabetes mellitus: Code(s): E11.9 - Type 2 diabetes mellitus without complications Status: Acute (8) Ulcerative colitis: Code(s): K51.90 - Ulcerative colitis, unspecified, without complications Status: Acute Plan 72-year-old female with a history of ulcerative colitis status post right colectomy with ileostomy, pancreatitis, gastroesophageal reflux disease, CKD stage 3, type 2 diabetes mellitus, obstructive sleep apnea on CPAP and hypothyroidism presented for evaluation off nausea and increased ostomy output for last 4 days. She was admitted to the hospital last month with acute on chronic kidney injury dehydration and pancreatitis after present taking with similar complaints. She was treated with IV fluid rehydration and her creatinine trended back to normal and was 1.1 at the time of discharge. She has been needing to empty her bag several times a day. Output is watery and yellow. No blood or mucus. Complaint of increasingly getting weak and fatigued as well as lightheaded and dizzy. Appetite has been poor and associated nausea. She was on antibiotics several weeks ago. No sick contacts. Denies history of C diff. No fever chills. No abdominal pain. No vomiting. In the ED she was afebrile her blood pressure was borderline. Laboratory evaluation revealed hemoglobin of 11.5 sodium level 129 bicarbonate of 15 with anion gap of 14 BUN 60 creatinine of 3.1 calcium of 10.3 AST was mildly elevated at 42 and lipase level of 321 20 UA was negative. She tested negative for influenza RSV and COVID she has received IV fluids and was admitted for further treatment. Etiology of the diarrhea is not entirely clear. She was on antibiotics last month thus stool studies has been ordered. C diff came back negative. Abdominal exam is benign thus no indication for CT scan at this time. She is dehydrated from ongoing fluid losses through diarrhea and poor oral intake given her nausea along with XANDER. She will be judiciously hydrated with close monitoring of volume status and renal function. Hyponatremia likely related this has wall and will continue to monitor and improving. Carbon dioxide is low due to bicarbonate loss from the diarrhea. Added on oral bicarb. Continue IV fluids. TSH. Type 2 diabetes hold metformin given worsening kidney failure. A1c at 7.1. Initiate sliding scale insulin, Accu-Cheks, and hypoglycemic protocol. DAVID on CPAP on DVT prophylaxis Lovenox Subjective Date/time seen: 07/08/23 12:45 Interval history: No overnight events. Feeling better. Getting IV fluids. Review of Systems Review of Systems: All systems reviewed & are unremarkable except as noted in HPI and below Exam Narrative: General:??Mildly ill-appearing female supine in bed. Not in acute distress HEENT:??Pupils reactive.? Extraocular motions intact.? Oral mucosa is dry.? Oropharynx clear. Neck:??Supple.? No lymphadenopathy. Respiratory:?Lungs are clear to auscultation bilaterally. Cardiovascular:??Regular rate and rhythm with S1-S2. Gastrointestinal:??Abdomen is soft, nontender, and nondistende
[2023-07-08 14:16] LABS: Creatine Kinase 137 U/L (30-135)
--- NOTE | 2023-07-08 14:36 | PHAR ---
PT'S HOME MED ESOMEPRAZOLE DR 40 MG CAPS VERIFIED BY PHARMACY
[2023-07-08 17:00] LABS: Glucose Point of Care 138 mg/dl (65-105)
[2023-07-08 23:42] LABS: Glucose Point of Care 119 mg/dl (65-105)
[2023-07-09] VITALS (11 sets, daily range): BP systolic 112–137; BP diastolic 40–88; PULSE 73–84; RESP 16–22; TEMP 36.3–36.8; O2SAT 91–98
[2023-07-09] MEDS: SODIUM CHLORIDE 0.9% IV 1,000 ML 125 ML IV CONT (05:46)
[2023-07-09] MEDS: LEVOTHYROXINE SODIUM 50 MCG TABLET PO (05:46)
[2023-07-09 06:14] LABS: Basophils Percent Auto 0.6 % (0.2-1.2); Eosinophils Absolute Auto 0.1 K/mm3 (0-0.3); Eosinophils Percent Auto 4.1 % (0-4.4); Hematocrit 29.3 % (37.0-47.0); Hemoglobin 9.2 g/dL (12.0-15.0); Immature Granulocyte Absolute 0.01 K/mm3 (0.00-0.031); Immature Granulocyte Percent A 0.3 % (0-0.5); Lymphocytes Absolute Auto 1.02 K/mm3 (0.9-3.2); Lymphocytes Percent Auto 32.4 % (18.3-44.2); Mean Corpuscular HGB Conc 31.4 g/dl (32-36); Mean Corpuscular Hemoglobin 28.8 pg (26-34); Mean Corpuscular Volume 91.8 fl (80-100); Mean Platelet Volume 10.1 fl (7.4-10.4); Monocytes Absolute Auto 0.4 K/mm3 (0.1-0.6); Monocytes Percent Auto 13.3 % (2.6-8.5); Neutrophils Absolute Auto 1.6 K/mm3 (1.3-6.7); Neutrophils Percent Auto 49.3 % (45.5-73.1); Platelet Count Result 162 k/mm3 (150-375); Red Blood Count 3.19 M/mm3 (4.2-5.4); Red Cell Distribution Width 14.2 % (11.5-14.5); White Blood Count 3.2 K/mm3 (4.5-10.0)
[2023-07-09 06:37] LABS: Alanine Aminotransferase 23 U/L (6-35); Albumin Level 3.6 g/dL (3.5-5.1); Alkaline Phosphatase 81 U/L (38-126); Anion Gap 7 mmol/L (8-16); Aspartate Amino Transferase 31 U/L (14-36); Bilirubin,Total 0.3 mg/dL (0.2-1.3); Blood Urea Nitrogen 38 mg/dL (7-17); Calcium 8.9 mg/dL (8.4-10.2); Carbon Dioxide 17 mmol/L (22-30); Chloride 113 mmol/L (98-107); Estimated CRCL calculation 45 ml/min; Estimated Glomerular Filt Rate 49; Glucose 112 mg/dL (65-110); Potassium 4.3 mmol/L (3.4-5.0); Sodium 137 mmol/L (137-145)
[2023-07-09 07:43] LABS: Glucose Point of Care 112 mg/dl (65-105)
[2023-07-09] MEDS: MULTIVITAMINS THERAPEUTIC TAB (*BKC) 1 TABLET PO (08:30)
[2023-07-09] MEDS: SODIUM BICARBONATE TAB 650 MG TABLET PO ×2 (08:30→16:11)
[2023-07-09] MEDS: ROSUVASTATIN 10 MG TABLET 40 MG PO (08:30)
[2023-07-09] MEDS: CHOLECALCIFEROL 400 UNITS TABLET (VIT D) PO (08:30)
[2023-07-09] MEDS: CYANOCOBALAMIN 500 MCG TABLET PO (08:30)
[2023-07-09] MEDS: MAGNESIUM OXIDE 400 MG TABLET PO (08:30)
[2023-07-09] MEDS: OMEGA 3 POLYUNSAT FATTY ACIDS 1 GM CAP PO ×2 (08:30→16:11)
[2023-07-09] MEDS: PARoxetine 20 MG TABLET PO (08:30)
[2023-07-09 11:28] LABS: Glucose Point of Care 114 mg/dl (65-105)
--- NOTE | 2023-07-09 12:04 | PM.IMPN ---
Progress Note: A&P Assessment and Plan (1) Acute on chronic kidney failure: Code(s): N17.9 - Acute kidney failure, unspecified; N18.9 - Chronic kidney disease, unspecified Status: Acute (2) Metabolic acidosis: Code(s): E87.20 - Acidosis, unspecified Status: Acute (3) Dehydration: Code(s): E86.0 - Dehydration Status: Acute (4) Diarrhea: Code(s): R19.7 - Diarrhea, unspecified Status: Acute (5) Hypothyroidism: Qualifiers: Hypothyroidism type: unspecified Qualified Code(s): E03.9 - Hypothyroidism, unspecified Code(s): E03.9 - Hypothyroidism, unspecified Status: Acute (6) Obstructive sleep apnea on CPAP: Code(s): G47.33 - Obstructive sleep apnea (adult) (pediatric); Z99.89 - Dependence on other enabling machines and devices Status: Acute (7) Type 2 diabetes mellitus: Code(s): E11.9 - Type 2 diabetes mellitus without complications Status: Acute (8) Ulcerative colitis: Code(s): K51.90 - Ulcerative colitis, unspecified, without complications Status: Acute Plan 72-year-old female with a history of ulcerative colitis status post right colectomy with ileostomy, pancreatitis, gastroesophageal reflux disease, CKD stage 3, type 2 diabetes mellitus, obstructive sleep apnea on CPAP and hypothyroidism presented for evaluation off nausea and increased ostomy output for last 4 days. She was admitted to the hospital last month with acute on chronic kidney injury dehydration and pancreatitis after present taking with similar complaints. She was treated with IV fluid rehydration and her creatinine trended back to normal and was 1.1 at the time of discharge. She has been needing to empty her bag several times a day. Output is watery and yellow. No blood or mucus. Complaint of increasingly getting weak and fatigued as well as lightheaded and dizzy. Appetite has been poor and associated nausea. She was on antibiotics several weeks ago. No sick contacts. Denies history of C diff. No fever chills. No abdominal pain. No vomiting. In the ED she was afebrile her blood pressure was borderline. Laboratory evaluation revealed hemoglobin of 11.5 sodium level 129 bicarbonate of 15 with anion gap of 14 BUN 60 creatinine of 3.1 calcium of 10.3 AST was mildly elevated at 42 and lipase level of 321 20 UA was negative. She tested negative for influenza RSV and COVID she has received IV fluids and was admitted for further treatment. Etiology of the diarrhea is not entirely clear. She was on antibiotics last month thus stool studies has been ordered. C diff came back negative. Abdominal exam is benign thus no indication for CT scan at this time. She is dehydrated from ongoing fluid losses through diarrhea and poor oral intake given her nausea along with XANDER. She will be judiciously hydrated with close monitoring of volume status and renal function. XANDER has resolved will stop IV fluid today. Hyponatremia likely related this has wall and will continue to monitor and improving. Carbon dioxide is low due to bicarbonate loss from the diarrhea. Added on oral bicarb. Continue IV fluids. TSH at 19 poly due to poor absorption will need to recheck as an outpatient basis. Type 2 diabetes hold metformin given worsening kidney failure. A1c at 7.1. Initiate sliding scale insulin, Accu-Cheks, and hypoglycemic protocol. DAVID on CPAP DVT prophylaxis Lovenox Subjective Date/time seen: 07/09/23 12:04 Interval history: Feels better. Ostomy output has improved denies any abdominal pain nausea vomiting tolerating diet. Review of Systems Review of Systems: All systems reviewed & are unremarkable except as noted in HPI and below Exam Narrative: General:??Mildly ill-appearing female supine in bed. Not in acute distress HEENT:??Pupils reactive.? Extraocular motions intact.? Oral mucosa is dry.? Oropharynx clear. Neck:??Supple.? No lymphadenopathy. Respiratory:?L
[2023-07-09 16:33] LABS: Glucose Point of Care 118 mg/dl (65-105)
[2023-07-09 19:53] LABS: Osmolality, Urine 222 mOsm/kg (50-1200)
[2023-07-09 20:31] LABS: Glucose Point of Care 123 mg/dl (65-105)
[2023-07-10] MEDS: LEVOTHYROXINE SODIUM 50 MCG TABLET PO (05:26)
[2023-07-10 06:00] VITALS: BP 139/51; PULSE 73; RESP 16; TEMP 36.3; O2SAT 100
[2023-07-10 07:11] LABS: Basophils Percent Auto 0.6 % (0.2-1.2); Eosinophils Absolute Auto 0.1 K/mm3 (0-0.3); Hematocrit 29.3 % (37.0-47.0); Hemoglobin 9.3 g/dL (12.0-15.0); Immature Granulocyte Absolute 0.01 K/mm3 (0.00-0.031); Immature Granulocyte Percent A 0.3 % (0-0.5); Lymphocytes Absolute Auto 1.36 K/mm3 (0.9-3.2); Lymphocytes Percent Auto 37.5 % (18.3-44.2); Mean Corpuscular HGB Conc 31.7 g/dl (32-36); Mean Corpuscular Hemoglobin 29.2 pg (26-34); Mean Corpuscular Volume 92.1 fl (80-100); Mean Platelet Volume 10.2 fl (7.4-10.4); Monocytes Absolute Auto 0.3 K/mm3 (0.1-0.6); Monocytes Percent Auto 9.4 % (2.6-8.5); Neutrophils Absolute Auto 1.8 K/mm3 (1.3-6.7); Neutrophils Percent Auto 49.2 % (45.5-73.1); Platelet Count Result 177 k/mm3 (150-375); Red Blood Count 3.18 M/mm3 (4.2-5.4); Red Cell Distribution Width 14.3 % (11.5-14.5); White Blood Count 3.6 K/mm3 (4.5-10.0)
[2023-07-10 07:33] LABS: Alanine Aminotransferase 23 U/L (6-35); Albumin Level 3.8 g/dL (3.5-5.1); Alkaline Phosphatase 79 U/L (38-126); Anion Gap 5 mmol/L (8-16); Aspartate Amino Transferase 34 U/L (14-36); Bilirubin,Total 0.3 mg/dL (0.2-1.3); Blood Urea Nitrogen 27 mg/dL (7-17); Calcium 9.2 mg/dL (8.4-10.2); Carbon Dioxide 21 mmol/L (22-30); Chloride 113 mmol/L (98-107); Estimated CRCL calculation 55 ml/min; Estimated Glomerular Filt Rate > 60; Glucose 110 mg/dL (65-110); Magnesium 1.4 mg/dL (1.6-2.3); Potassium 4.1 mmol/L (3.4-5.0); Sodium 139 mmol/L (137-145)
[2023-07-10 08:00] VITALS: BP 133/51; PULSE 80
[2023-07-10 08:02] LABS: Glucose Point of Care 104 mg/dl (65-105)
[2023-07-10] MEDS: MAGNESIUM SULF 2 GM/WATER 50ML 2 GM/50 ML BAG IVPB ×2 (08:26→09:30)
[2023-07-10] MEDS: ROSUVASTATIN 10 MG TABLET 40 MG PO (08:27)
[2023-07-10] MEDS: CHOLECALCIFEROL 400 UNITS TABLET (VIT D) PO (08:27)
[2023-07-10] MEDS: MAGNESIUM OXIDE 400 MG TABLET PO (08:27)
[2023-07-10] MEDS: MULTIVITAMINS THERAPEUTIC TAB (*BKC) 1 TABLET PO (08:27)
[2023-07-10] MEDS: CYANOCOBALAMIN 500 MCG TABLET PO (08:27)
[2023-07-10] MEDS: SODIUM BICARBONATE TAB 650 MG TABLET PO (08:28)
[2023-07-10] MEDS: OMEGA 3 POLYUNSAT FATTY ACIDS 1 GM CAP PO (08:28)
[2023-07-10] MEDS: PARoxetine 20 MG TABLET PO (08:28)
[2023-07-10 10:29] VITALS: BP 128/57; BP 129/65; PULSE 77; PULSE 79
[2023-07-10 11:14] LABS: Glucose Point of Care 122 mg/dl (65-105)
--- NOTE | 2023-07-10 13:15 | PM.DS ---
DS: Admitting Diagnosis Discharge Date 07/10/2023 Admitting Diagnosis Diarrhea DS: Discharge Diagnosis Discharge Diagnosis (1) Acute on chronic kidney failure: Code(s): N17.9 - Acute kidney failure, unspecified; N18.9 - Chronic kidney disease, unspecified Status: Acute (2) Metabolic acidosis: Code(s): E87.20 - Acidosis, unspecified Status: Acute (3) Dehydration: Code(s): E86.0 - Dehydration Status: Acute (4) Diarrhea: Code(s): R19.7 - Diarrhea, unspecified Status: Acute (5) Hypothyroidism: Qualifiers: Hypothyroidism type: unspecified Qualified Code(s): E03.9 - Hypothyroidism, unspecified Code(s): E03.9 - Hypothyroidism, unspecified Status: Acute (6) Obstructive sleep apnea on CPAP: Code(s): G47.33 - Obstructive sleep apnea (adult) (pediatric); Z99.89 - Dependence on other enabling machines and devices Status: Acute (7) Type 2 diabetes mellitus: Code(s): E11.9 - Type 2 diabetes mellitus without complications Status: Acute (8) Ulcerative colitis: Code(s): K51.90 - Ulcerative colitis, unspecified, without complications Status: Acute DS: Summary Hospital Course Hospital Course: 72-year-old female with a history of ulcerative colitis status post right colectomy with ileostomy, pancreatitis, gastroesophageal reflux disease, CKD stage 3, type 2 diabetes mellitus, obstructive sleep apnea on CPAP and hypothyroidism presented for evaluation off nausea and increased ostomy output for last 4 days.? She was admitted to the hospital last month with acute on chronic kidney injury dehydration and pancreatitis after present taking with similar complaints.? She was treated with IV fluid rehydration and her creatinine trended back to normal and was 1.1 at the time of discharge.? She has been needing to empty her bag several times a day.? Output is watery and yellow.? No blood or mucus.? Complaint of increasingly getting weak and fatigued as well as lightheaded and dizzy.? Appetite has been poor and associated nausea.? She was on antibiotics several weeks ago.? No sick contacts.? Denies history of C diff. No fever chills.? No abdominal pain.? No vomiting. In the ED she was afebrile her blood pressure was borderline.? Laboratory evaluation revealed hemoglobin of 11.5 sodium level 129 bicarbonate of 15 with anion gap of 14 BUN 60 creatinine of 3.1 calcium of 10.3 AST was mildly elevated at 42 and lipase level of 321 20 UA was negative.? She tested negative for influenza RSV and COVID she has received IV fluids and was admitted for further treatment. ? Etiology of the diarrhea is not entirely clear. She was on antibiotics last month thus stool studies has been ordered.? C diff came back negative. This is the stool studies remain negative. Ostomy output continued to improve during the hospital stay. Abdominal exam is benign thus no indication for CT scan at this time. She is dehydrated from ongoing fluid losses through diarrhea and poor oral intake given her nausea along with XANDER. She will be judiciously hydrated with close monitoring of volume status and renal function.? XANDER resolved with IV hydration. Hyponatremia likely related this has wall and will continue to monitor and improving.? Carbon dioxide is low due to bicarbonate loss from the diarrhea.? Added on oral bicarb.?TSH at 19 poly due to poor absorption will need to recheck as an outpatient basis.? Type 2 diabetes hold metformin given worsening kidney failure.? A1c at 7.1.? Initiate sliding scale insulin, Accu-Cheks, and hypoglycemic protocol.? DAVID on CPAP DVT prophylaxis Lovenox Time Spent with Patient Time attestation: Total time spent providing and/or coordinating discharge services: 35 mins Exam Narrative: General:??Well appearing female supine in bed. Not in acute distress HEENT:??Pupils reactive.? Extraocular motions intact.? Oral mucosa is dry.? Oropharynx clear. Neck:??Supple.?
== END 2023-07-10 14:08 | disposition home or self-care (01) | DRG 683 ==
LOC: ANHED 13:43 → ANH3MEDSUR 07-08 00:53
PROVIDERS: Physician Assistant; Admitting Provider Student in an Organized Health Care Education/Training Program; Emergency Provider Student in an Organized Health Care Education/Training Program; PCP Family Medicine; Visit Provider Internal Medicine
DX: N17.9 Acute kidney failure, unspecified (principal); E87.1 Hypo-osmolality and hyponatremia; E87.21 Acute metabolic acidosis; K51.90 Ulcerative colitis, unspecified, without complications; E11.22 Type 2 diabetes mellitus with diabetic chronic kidney disease; N18.30 Chronic kidney disease, stage 3 unspecified; E86.0 Dehydration; R19.7 Diarrhea, unspecified; E03.9 Hypothyroidism, unspecified; G47.33 Obstructive sleep apnea (adult) (pediatric); D64.9 Anemia, unspecified; K21.9 Gastro-esophageal reflux disease without esophagitis; Z93.2 Ileostomy status; Z90.49 Acquired absence of other specified parts of digestive tract; Z96.652 Presence of left artificial knee joint; Z96.642 Presence of left artificial hip joint; Z98.49 Cataract extraction status, unspecified eye; Z20.822 Contact with and (suspected) exposure to COVID-19
CPT/HCPCS: 36415; 80048; 80053; 81003; 82550; 82570; 82803; 82948; 83036; 83690; 83735; 83935; 84300; 84439; 84443; 84480; 85025; 85027; 87045; 87269; 87272; 87427; 87449; 87493; 87636; 96361; 96374; 96375; 99285; A9270; G0378; J0780; J2405; J3475; J7030

== ENCOUNTER 2023-08-01 09:14 | Outpatient (CLI) | payer MEDICARE, SELFPAY ==
[2023-08-01 10:11] LABS: Anion Gap 8 mmol/L (4-12); Blood Urea Nitrogen 18 mg/dL (7-17); Calcium 10.4 mg/dL (8.4-10.2); Carbon Dioxide 25 mmol/L (22-30); Chloride 107 mmol/L (98-107); Estimated Glomerular Filt Rate > 60; Glucose 106 mg/dL (65-110); Sodium 140 mmol/L (137-145)
== END 2023-08-01 09:15 | disposition home or self-care (01) ==
LOC: ANHLAB 09:16
PROVIDERS: PCP Family Medicine; Visit Provider Nurse Practitioner Family
DX: N17.9 Acute kidney failure, unspecified (principal); N18.9 Chronic kidney disease, unspecified
CPT/HCPCS: 36415; 80048

== ENCOUNTER 2023-10-15 09:56 | Outpatient (CLI) | payer MEDICARE, SELFPAY ==
[2023-10-15 10:18] LABS: Hematocrit 36.7 % (37.0-47.0); Hemoglobin 11.7 g/dL (12.0-15.0); Mean Corpuscular HGB Conc 31.9 g/dl (32-36); Mean Corpuscular Hemoglobin 28.7 pg (26-34); Mean Platelet Volume 9.5 fl (7.4-10.4); Platelet Count Result 224 k/mm3 (150-375); Red Blood Count 4.08 M/mm3 (4.2-5.4); Red Cell Distribution Width 12.5 % (11.5-14.5); White Blood Count 4.3 K/mm3 (4.5-10.0)
[2023-10-15 10:29] LABS: Alanine Aminotransferase 24 U/L (6-35); Albumin Level 4.7 g/dL (3.5-5.1); Alkaline Phosphatase 106 U/L (38-126); Anion Gap 11 mmol/L (4-12); Aspartate Amino Transferase 37 U/L (14-36); Bilirubin,Total 0.5 mg/dL (0.2-1.3); Blood Urea Nitrogen 15 mg/dL (7-17); Calcium 10.1 mg/dL (8.4-10.2); Carbon Dioxide 20 mmol/L (22-30); Chloride 110 mmol/L (98-107); Cholesterol 196 mg/dL (0-200); Estimated Glomerular Filt Rate > 60; Glucose 134 mg/dL (65-110); HDL Direct 49 mg/dL; Potassium 4.3 mmol/L (3.4-5.0); Sodium 141 mmol/L (137-145); Triglycerides 256 mg/dL (<150)
[2023-10-15 10:40] LABS: LDL Cholesterol Direct 100 mg/dL
== END 2023-10-15 09:57 | disposition home or self-care (01) ==
LOC: ANHLAB 09:59
PROVIDERS: PCP Family Medicine; Visit Provider Physician Assistant Medical
DX: D64.9 Anemia, unspecified (principal); N17.9 Acute kidney failure, unspecified; E78.5 Hyperlipidemia, unspecified
CPT/HCPCS: 36415; 80053; 80061; 85027

== ENCOUNTER 2023-11-14 09:51 | Outpatient (CLI) | payer MEDICARE, SELFPAY ==
[2023-11-14 10:16] LABS: Basophils Percent Auto 0.2 % (0.2-1.2); Eosinophils Percent Auto 0.6 % (0-4.4); Hematocrit 37.4 % (37.0-47.0); Immature Granulocyte Absolute 0.01 K/mm3 (0.00-0.031); Immature Granulocyte Percent A 0.2 % (0-0.5); Lymphocytes Absolute Auto 1.11 K/mm3 (0.9-3.2); Mean Corpuscular HGB Conc 32.1 g/dl (32-36); Mean Corpuscular Hemoglobin 28.8 pg (26-34); Mean Corpuscular Volume 89.7 fl (80-100); Mean Platelet Volume 9.8 fl (7.4-10.4); Monocytes Absolute Auto 0.3 K/mm3 (0.1-0.6); Neutrophils Absolute Auto 3.3 K/mm3 (1.3-6.7); Platelet Count Result 225 k/mm3 (150-375); Red Blood Count 4.17 M/mm3 (4.2-5.4); Red Cell Distribution Width 13.2 % (11.5-14.5); White Blood Count 4.8 K/mm3 (4.5-10.0)
== END 2023-11-14 09:52 | disposition home or self-care (01) ==
LOC: ANHLAB 09:54
PROVIDERS: PCP Family Medicine; Visit Provider Physician Assistant Medical
DX: D64.9 Anemia, unspecified (principal); N17.9 Acute kidney failure, unspecified; N18.9 Chronic kidney disease, unspecified
CPT/HCPCS: 36415; 85025

== ENCOUNTER 2023-11-15 11:02 | Emergency (ER) | payer MEDICARE, SELFPAY ==
[2023-11-15] VITALS (8 sets, daily range): BP systolic 115–146; BP diastolic 57–78; PULSE 69–100; RESP 14–25; TEMP 36.3; O2SAT 92–96
--- NOTE | ~2023-11-15 | CT_ITS ---
EXAMINATION: CT abdomen pelvis w con DATE: 11/15/2023 13:11 INDICATION: Nausea TECHNIQUE: Computed tomography (CT) of the abdomen and pelvis was performed with 100 mL Omnipaque-350 intravenous contrast. Automated exposure control and iterative reconstruction technique were employe d. The dose-length product was 731.23 mGy-cm. COMPARISON: 06/21/2023 FINDINGS: Mild dependent atelectasis in bilateral lower lobes. Calcified right middle lobe nodules consistent w ith old granulomatous disease. Heart size is normal. No pericardial or pleural effusion. Cholecystect jen clips the gallbladder fossa. Liver, spleen, pancreas, bilateral adrenal glands and kidneys are no rmal. Total colectomy with right lower quadrant and ileostomy and stable appearance of presacral scar ring with some surgical clips. No bowel obstruction. Bladder, uterus and bilateral adnexa are unremar kable. Tiny fat-containing umbilical hernia. No free intraperitoneal gas or fluid. No pathologically enlarged abdominal or pelvic lymphadenopathy. Left total hip arthroplasty. 3 mm retrolisthesis L2 on L3 with severe associated disc height loss. IMPRESSION: 1. No acute intra-abdominal/pelvic process. Reviewed, dictated and finalized at location A.
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
[2023-11-15 12:15] LABS: Basophils Percent Auto 0.1 % (0.2-1.2); Eosinophils Percent Auto 0.6 % (0-4.4); Hematocrit 39.4 % (37.0-47.0); Hemoglobin 12.5 g/dL (12.0-15.0); Immature Granulocyte Absolute 0.01 K/mm3 (0.00-0.031); Immature Granulocyte Percent A 0.1 % (0-0.5); Lymphocytes Absolute Auto 1.08 K/mm3 (0.9-3.2); Lymphocytes Percent Auto 15.8 % (18.3-44.2); Mean Corpuscular HGB Conc 31.7 g/dl (32-36); Mean Corpuscular Hemoglobin 28.9 pg (26-34); Mean Corpuscular Volume 91.2 fl (80-100); Mean Platelet Volume 9.8 fl (7.4-10.4); Monocytes Absolute Auto 0.4 K/mm3 (0.1-0.6); Monocytes Percent Auto 6.5 % (2.6-8.5); Neutrophils Absolute Auto 5.2 K/mm3 (1.3-6.7); Neutrophils Percent Auto 76.9 % (45.5-73.1); Platelet Count Result 239 k/mm3 (150-375); Red Blood Count 4.32 M/mm3 (4.2-5.4); Red Cell Distribution Width 13.2 % (11.5-14.5); White Blood Count 6.8 K/mm3 (4.5-10.0)
[2023-11-15] MEDS: ONDANSETRON INJ 4 MG/2 ML VIAL IV PUSH (12:18)
[2023-11-15] MEDS: SODIUM CHLORIDE 0.9% IV 1,000 ML 999 ML IV CONT (12:18)
[2023-11-15 12:28] LABS: Alanine Aminotransferase 31 U/L (6-35); Albumin Level 4.9 g/dL (3.5-5.1); Alkaline Phosphatase 112 U/L (38-126); Anion Gap 13 mmol/L (4-12); Aspartate Amino Transferase 52 U/L (14-36); Bilirubin,Total 0.6 mg/dL (0.2-1.3); Blood Urea Nitrogen 17 mg/dL (7-17); Calcium 10.2 mg/dL (8.4-10.2); Carbon Dioxide 21 mmol/L (22-30); Chloride 105 mmol/L (98-107); Estimated CRCL calculation 53 ml/min; Estimated Glomerular Filt Rate > 60; Glucose 129 mg/dL (65-110); Lipase 132 U/L (23-300); Potassium 4.7 mmol/L (3.4-5.0); Sodium 139 mmol/L (137-145)
[2023-11-15 12:44] LABS: Bacteria Urine None Seen /hpf; Bilirubin Urine Negative (Negative); Blood Urine Negative (Negative); Color Urine Yellow (Yellow); Glucose Urine UA Negative (Negative); Ketones Urine Negative (Negative); Leukocyte Esterase Ur Trace LEU/UL (Negative); Nitrate Urine Negative (Negative); Protein Urine Trace mg/dL (Negative); Specific Grav Ur 1.022 (1.001-1.035); Squamous Epithelial Cell Urine None Seen /hpf (Few); Urobilinogen Urine 0.2 mg/dL (<2.0); WBC Urine 0-5 /hpf (0-3)
[2023-11-15 12:46] LABS: Appearance Urine Clear (Clear)
[2023-11-15 12:47] LABS: Add Urine Microscopic? YES
== END 2023-11-15 15:02 | disposition home or self-care (01) ==
PROVIDERS: Student in an Organized Health Care Education/Training Program; Emergency Provider Emergency Medicine; PCP Family Medicine
DX: R19.7 Diarrhea, unspecified (principal); E11.22 Type 2 diabetes mellitus with diabetic chronic kidney disease; N18.30 Chronic kidney disease, stage 3 unspecified; E78.5 Hyperlipidemia, unspecified; E03.9 Hypothyroidism, unspecified; K51.90 Ulcerative colitis, unspecified, without complications; K21.9 Gastro-esophageal reflux disease without esophagitis; Z93.2 Ileostomy status; Z96.642 Presence of left artificial hip joint; Z96.652 Presence of left artificial knee joint; Z87.440 Personal history of urinary (tract) infections; Z87.891 Personal history of nicotine dependence; Z90.49 Acquired absence of other specified parts of digestive tract; Z98.49 Cataract extraction status, unspecified eye; Z79.84 Long term (current) use of oral hypoglycemic drugs; Z79.899 Other long term (current) drug therapy
CPT/HCPCS: 36415; 74177; 80053; 81001; 83690; 85025; 96361; 96374; 99284; J2405; J7030; Q9967

== ENCOUNTER 2023-12-22 08:04 | Inpatient (IN) | payer MEDICARE, SELFPAY ==
[2023-12-22] VITALS (13 sets, daily range): BP systolic 93–149; BP diastolic 42–85; PULSE 67–86; RESP 14–18; TEMP 35.9–36.9; O2SAT 94–100; BMI 32.0
--- NOTE | ~2023-12-22 | XR_ITS ---
EXAMINATION: XR chest 2V DATE: 12/22/2023 09:12 INDICATION: Dizziness. Dyspnea. Nausea. TECHNIQUE: Frontal and lateral views of the chest were obtained. COMPARISON: Chest 2 views 09/07/2022, CT abdomen and pelvis 11/15/2023 FINDINGS: There is no pneumonia, pleural effusion, or pneumothorax. The heart size is normal. There a re prominent pericardial fat pads. IMPRESSION: 1. No acute cardiopulmonary disease. Reviewed, dictated and finalized at location A.
--- NOTE | 2023-12-22 08:18 | ECG_ITS ---
Test Date: 2023-12-22 08:25:47 Measurements Intervals [place] Rate: 78 P: 40 AL: 173 QRS: -2 QRSD: 88 T: 29 QT: 378 QTc: 431 Interpretive Statements SINUS RHYTHM NONSPECIFIC T-WAVE ABNORMALITY No previous ECG available for comparison Electronically Signed On 12-22-2023 10:37:06 CDT by Jg Isaacs M.D.
[2023-12-22 08:55] LABS: Basophils Percent Auto 0.6 % (0.2-1.2); Eosinophils Absolute Auto 0.1 K/mm3 (0-0.3); Eosinophils Percent Auto 1.8 % (0-4.4); Hematocrit 40.6 % (37.0-47.0); Hemoglobin 12.9 g/dL (12.0-15.0); Immature Granulocyte Absolute 0.01 K/mm3 (0.00-0.031); Immature Granulocyte Percent A 0.2 % (0-0.5); Lymphocytes Absolute Auto 1.21 K/mm3 (0.9-3.2); Lymphocytes Percent Auto 19.6 % (18.3-44.2); Mean Corpuscular HGB Conc 31.8 g/dl (32-36); Mean Corpuscular Hemoglobin 28.7 pg (26-34); Mean Corpuscular Volume 90.4 fl (80-100); Mean Platelet Volume 9.8 fl (7.4-10.4); Monocytes Absolute Auto 0.8 K/mm3 (0.1-0.6); Monocytes Percent Auto 12.5 % (2.6-8.5); Neutrophils Percent Auto 65.3 % (45.5-73.1); Platelet Count Result 289 k/mm3 (150-375); Red Blood Count 4.49 M/mm3 (4.2-5.4); Red Cell Distribution Width 13.8 % (11.5-14.5); White Blood Count 6.2 K/mm3 (4.5-10.0)
[2023-12-22 09:04] LABS: Alanine Aminotransferase 34 U/L (6-35); Alkaline Phosphatase 112 U/L (38-126); Anion Gap 18 mmol/L (4-12); Aspartate Amino Transferase 45 U/L (14-36); Bilirubin,Total 0.4 mg/dL (0.2-1.3); Blood Urea Nitrogen 54 mg/dL (7-17); Calcium 10.3 mg/dL (8.4-10.2); Carbon Dioxide 17 mmol/L (22-30); Chloride 99 mmol/L (98-107); Estimated Glomerular Filt Rate 11; Glucose 135 mg/dL (65-110); Potassium 4.9 mmol/L (3.4-5.0); Sodium 134 mmol/L (137-145)
[2023-12-22 09:31] LABS: Influenza A QL RT-PCR Negative (Negative); Influenza B QL RT-PCR Negative (Negative); RSV RNA, RT-PCR Negative (Negative); SARS-CoV-2 RNA PCR Negative (Negative)
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
[2023-12-22] MEDS: SODIUM CHLORIDE 0.9% IV 1,000 ML 999 ML IV CONT ×2 (10:12→12:02)
[2023-12-22] MEDS: ONDANSETRON INJ 4 MG/2 ML VIAL IV PUSH (10:12)
[2023-12-22 12:39] LABS: Lipase 261 U/L (23-300); Magnesium 1.8 mg/dL (1.6-2.3)
[2023-12-22 12:46] LABS: NT Pro B Type Natriuretic Pept 45 pg/mL (19.9-100); Troponin I < 0.012 ng/mL (0.000-0.034)
[2023-12-22 13:23] LABS: Appearance Urine Cloudy (Clear); Color Urine Dark Yellow (Yellow)
[2023-12-22 13:24] LABS: Add Urine Microscopic? YES; Bacteria Urine None Seen /hpf; Bilirubin Urine 1+ (Negative); Blood Urine Negative (Negative); Glucose Urine UA Negative (Negative); Ketones Urine Trace mg/dL (Negative); Leukocyte Esterase Ur Negative LEU/UL (Negative); Mucus Urine Present /lpf; Nitrate Urine Negative (Negative); Non Pathogenic Casts >20; Protein Urine 1+ mg/dL (Negative); Specific Grav Ur 1.018 (1.001-1.035); Squamous Epithelial Cell Urine Occasional /hpf (Few); Urobilinogen Urine 0.2 mg/dL (<2.0); WBC Urine 0-5 /hpf (0-3)
--- NOTE | 2023-12-22 13:56 | ECG_ITS ---
Test Date: 2023-12-22 13:58:24 Measurements Intervals [place] Rate: 64 P: 53 VA: 190 QRS: 0 QRSD: 90 T: 28 QT: 431 QTc: 445 Interpretive Statements SINUS RHYTHM NONSPECIFIC T-WAVE ABNORMALITY Compared to ECG 12/22/2023 08:25:47 NO SIGNIFICANT CHANGES Electronically Signed On 12-23-2023 10:30:42 CDT by Jg Isaacs M.D.
[2023-12-22 14:36] LABS: Troponin I < 0.012 ng/mL (0.000-0.034)
--- NOTE | 2023-12-22 15:00 | PC.NURSE ---
This patient, Mariya Villanueva, was admitted to [facility] Surg Room 324-01. Patient/family oriented to hospital policies and general routines including ID bracelet, bed and alarms, visiting hours, pain management, procedures, bathroom and other care routines, personal items, smoking policy, room service/diet, and visiting hours. Information on how to activate the Rapid Response Team has been discussed. Patient/Family are encouraged to report perceived risks to care and to ask questions if they do not understand what they are told or what they should do.
[2023-12-22 16:33] LABS: Glucose Point of Care 90 mg/dl (65-105)
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
[2023-12-22 18:36] LABS: Troponin I < 0.012 ng/mL (0.000-0.034)
[2023-12-22 19:12] LABS: Hemoglobin A1C 7.1 % (<5.7)
[2023-12-22] MEDS: ACETAMINOPHEN 325 MG TABLET 650 MG PO (20:27)
[2023-12-23] VITALS (8 sets, daily range): BP systolic 126–142; BP diastolic 42–58; PULSE 60–103; RESP 16–18; TEMP 35.6–37; O2SAT 96–97
[2023-12-23] MEDS: WATER FOR IRRIGATION, STERILE 1,000 ML BOTTLE 1000 ML (05:58)
[2023-12-23] MEDS: LEVOTHYROXINE SODIUM 50 MCG TABLET PO (06:11)
[2023-12-23 07:19] LABS: Basophils Percent Auto 0.6 % (0.2-1.2); Eosinophils Absolute Auto 0.1 K/mm3 (0-0.3); Eosinophils Percent Auto 1.4 % (0-4.4); Hematocrit 36.1 % (37.0-47.0); Hemoglobin 11.2 g/dL (12.0-15.0); Immature Granulocyte Absolute 0.01 K/mm3 (0.00-0.031); Immature Granulocyte Percent A 0.3 % (0-0.5); Lymphocytes Absolute Auto 1.11 K/mm3 (0.9-3.2); Lymphocytes Percent Auto 31.5 % (18.3-44.2); Mean Corpuscular Hemoglobin 28.6 pg (26-34); Mean Corpuscular Volume 92.3 fl (80-100); Mean Platelet Volume 9.8 fl (7.4-10.4); Monocytes Absolute Auto 0.5 K/mm3 (0.1-0.6); Monocytes Percent Auto 14.5 % (2.6-8.5); Neutrophils Absolute Auto 1.8 K/mm3 (1.3-6.7); Neutrophils Percent Auto 51.7 % (45.5-73.1); Platelet Count Result 214 k/mm3 (150-375); Red Blood Count 3.91 M/mm3 (4.2-5.4); Red Cell Distribution Width 13.7 % (11.5-14.5); White Blood Count 3.5 K/mm3 (4.5-10.0)
[2023-12-23 07:24] LABS: Alanine Aminotransferase 28 U/L (6-35); Albumin Level 4.3 g/dL (3.5-5.1); Alkaline Phosphatase 104 U/L (38-126); Anion Gap 14 mmol/L (4-12); Aspartate Amino Transferase 37 U/L (14-36); Bilirubin,Total 0.3 mg/dL (0.2-1.3); Blood Urea Nitrogen 45 mg/dL (7-17); Calcium 9.5 mg/dL (8.4-10.2); Carbon Dioxide 16 mmol/L (22-30); Chloride 106 mmol/L (98-107); Estimated CRCL calculation 23 ml/min; Estimated Glomerular Filt Rate 23; Glucose 116 mg/dL (65-110); Potassium 4.1 mmol/L (3.4-5.0); Sodium 136 mmol/L (137-145)
[2023-12-23 08:34] LABS: Glucose Point of Care 115 mg/dl (65-105)
[2023-12-23] MEDS: CHOLECALCIFEROL 400 UNITS TABLET (VIT D) PO (09:29)
[2023-12-23] MEDS: ROSUVASTATIN 20 MG TABLET 40 MG PO (09:29)
[2023-12-23] MEDS: CYANOCOBALAMIN 500 MCG TABLET PO (09:29)
[2023-12-23] MEDS: FLUTICASONE PROPIONATE 0.05% NA SPR 16 GM BTL (*BKC) 1 SPRAY NASAL ×2 (10:59→20:50)
--- NOTE | 2023-12-23 10:59 | PM.IMPN ---
Progress Note: A&P Assessment and Plan (1) Nausea: Code(s): R11.0 - Nausea Status: Acute Assessment and Plan: hx of n/v and diarrhea, in-patient 07/08/2023 for similar symptoms - continue Zofran 4mg IV, q4 hrs PRN for nausea - resolved- monitor (2) Ulcerative colitis: Code(s): K51.90 - Ulcerative colitis, unspecified, without complications Status: Acute Assessment and Plan: History of ulcerative colitis s/p: Colectomy with ileostomy -continue ileostomy supportive care (3) Ileostomy in place: Code(s): Z93.2 - Ileostomy status Status: Acute Assessment and Plan: -see plan above (4) Type 2 diabetes mellitus without complications: Qualifiers: Diabetes mellitus long-term insulin use: without termite renewal inspector use Qualified Code(s): E11.9 - Type 2 diabetes mellitus without complications Code(s): E11.9 - Type 2 diabetes mellitus without complications Status: Acute Assessment and Plan: -last A1c 07/07/2023, was 7.1 -hold home medication metformin -initiate hypoglycemic protocol (5) Acute kidney injury superimposed on CKD: Code(s): N17.9 - Acute kidney failure, unspecified; N18.9 - Chronic kidney disease, unspecified Status: Acute Assessment and Plan: -pt has hx of XANDER, has never follow-up with associate financial analyst in the past, Serum creatinine is 4.0 -continue to monitor BMP daily -continue telemetry monitoring -strict monitor I&O -hold home medication lisinopril -consult Nephrology in the a.m. (6) Increased ileostomy output: Code(s): R19.8 - Other specified symptoms and signs involving the digestive system and abdomen; Z93.2 - Ileostomy status Status: Acute Plan Continue home medications: VTE Prophylaxis: Heparin subQ DIET: Clear liquid, advance as tolerated Anticipated hospital stay: > 2 days Code Status: Full code Time Spent With Patient Time with patient: Greater than 35 minutes Subjective Date/time seen: 12/23/23 10:59 Interval history: SOB Narrative retrieved from H/P: 73-year-old female with a PMHx: of hypothyroidism, hyper tension, ulcerative colitis s/p: ileostomy presented to the emergency room with complaints of ongoing SOB patient reported it had been ongoing for the past several days, she describes her symptoms of nausea vomiting increased fatigue and weakness patient stating she was unable to eat or drink much due to fullness and nausea. She admits to also noticing a decrease with her urinary output as well as a much more pungent liquid output in her ileostomy. In the ED: Initial vitals: b/p 113/51, rr,18 pr84, sp02 98 % on RA, T:98.4, initial labs, hyponatremia sodium 134, BUN 54, creatinine 4.00, GFR 11, viral PCR negative UA with trace ketones, urine bilirubin 1+ protein patient was given 2 L NS IV, Zofran 4 mg IV push 12/22- pt is seen and examined. Waiting for nephrology consult. She is very pleasant, denies any pain. Reports no n/v/d, no dizziness any more. Exam Narrative: General: A well-developed, nontoxic-appearing, female up ambulating to from restroom to bed HEENT: PERRL, EOMI. Oral mucosa moist. Neck: Supple. No midline cervical tenderness. Respiratory: Respirations are non- labored and lungs are clear to auscultation bilaterally. Cardiovascular: Regular rate and rhythm with S1-S2. Gastrointestinal: Abdomen is soft, non-tender, ileostomy in place Skin: Warm and dry. No rash or lesions on limited exam. Extremities: No cyanosis, clubbing, or edema. Radial and pedal pulses intact. Neurological: Alert and oriented. Cranial nerves 2-12 are grossly intact. No gross focal deficits to casual conversation. Psychiatric: Pleasant and cooperative with normal mood and affect. Judgment and insight intact. Objective Data Vital Signs Vital Signs: Vital Signs - 24 hr 12/22/23 11:15 12/22/23 12:16 12/22/23 12:45 Temperature 97.7 F 97.9 F 97.9 F Pulse Rate 67 68 67 Respirat
[2023-12-23 11:56] LABS: Glucose Point of Care 116 mg/dl (65-105)
--- NOTE | 2023-12-23 14:45 | PM.CNNEP ---
Assessment and Plan Assessment and plan (1) XANDER (acute kidney injury): Code(s): N17.9 - Acute kidney failure, unspecified Status: Acute Assessment and Plan: history would suggest volume depletion/dehydration previous creatinine in the last few months were normal creatinine has already improved with IVFs will continues IVFs for another day holding TONI-I will hold off on further imaging/testing given improvement in creatinine in the last 24 hours follow trend of repeat labs (2) Nausea, vomiting, and diarrhea: Code(s): R11.2 - Nausea with vomiting, unspecified; R19.7 - Diarrhea, unspecified Status: Acute Assessment and Plan: as noted by admission history clinical improvement noted on IV antiemetics PRN (3) Ulcerative colitis: Code(s): K51.90 - Ulcerative colitis, unspecified, without complications Status: Chronic Assessment and Plan: known history s/p colectomy with ileostomy reported issues with increased ileostomy output (i.e. diarrhea) prior to admission continue supportive therapy (4) Type 2 diabetes mellitus: Code(s): E11.9 - Type 2 diabetes mellitus without complications Status: Acute Assessment and Plan: follow accu-cheks glycemic control per hospitalists I will continue to follow the patient with you while she remains hospitalized make further recommendations as deemed necessary. Thank you for allowing me to participate in care of this patient. History of Present Illness Reason for Consult Consult date: 12/23/23 Reason for consult: acute renal failure Chief Complaint Chief complaint: xander History of Present Illness Narrative: The patient is a 73-year-old female with a past medical history as outlined below who presented to [facility] Emergency Room with complaints of nausea, vomiting, and diarrhea. According to the patient, she reports the symptoms have resulted in increased fatigue and weakness and have led to her not being able to eat or drink much in general. The symptoms have been going on for last several days if not longer and I have not really improved despite supportive therapy. Further complicating matter is that she has noticed decrease in her urine output as well as more excessive liquid output from her ileostomy. As she had similar symptoms in the past (June of 2023) that led to hospitalization and IV fluids, she came to the ER for further assessment. Workup and evaluation emergency room demonstrated the patient be hemodynamically stable and in no acute distress. Her blood pressure was a little bit on the lower side of normal in comparison to her baseline per patient. Routine blood tests were significant for evidence of acute kidney injury with a BUN of 54, creatinine 4.0, and mild hyponatremia with a sodium 134. Viral testing for COVID, RSV, and influenza were negative and her urinalysis was not indicative of any infection. She received 2 L of IV fluids along with IV antiemetics and was subsequent admitted to the hospital for further evaluation therapy. Since her admission, her renal function has significantly improved down from a 4.0 mg/dL down to 2.1 mg/dL. Furthermore, her symptoms of nausea, vomiting, diarrhea seemed to have subsided and she otherwise feels reasonably well. Renal consultation was requested due to her acute kidney injury/acute renal failure. The patient is somewhat familiar to me as I took care of her during her June 2023 visit for similar symptoms much like as on that last hospitalization, her renal function improved with just holding her TONI-inhibitor as well as IV fluid resuscitation. From review of her records, in the last several months her kidney function has been well within normal limits at 0.9 mg/dL. Given the history as noted above, the presumption is that her renal dysfunction was secondary to severe volume depletion/dehydration as IV fluids seemed of already corre
[2023-12-23 17:49] LABS: Glucose Point of Care 112 mg/dl (65-105)
[2023-12-23] MEDS: SODIUM CHLORIDE 0.9% IV 1,000 ML 75 ML IV CONT (20:53)
[2023-12-24 00:36] LABS: Glucose Point of Care 144 mg/dl (65-105)
[2023-12-24 06:00] VITALS: BP 132/62; PULSE 64; RESP 18; TEMP 36.8; O2SAT 95
[2023-12-24] MEDS: LEVOTHYROXINE SODIUM 50 MCG TABLET PO (06:08)
[2023-12-24 08:01] LABS: Eosinophils Percent Auto 0.9 % (0-4.4); Hemoglobin 10.8 g/dL (12.0-15.0); Immature Granulocyte Absolute 0.01 K/mm3 (0.00-0.031); Immature Granulocyte Percent A 0.3 % (0-0.5); Lymphocytes Absolute Auto 0.93 K/mm3 (0.9-3.2); Lymphocytes Percent Auto 28.4 % (18.3-44.2); Mean Corpuscular HGB Conc 32.7 g/dl (32-36); Mean Corpuscular Hemoglobin 29.7 pg (26-34); Mean Corpuscular Volume 90.7 fl (80-100); Mean Platelet Volume 10.1 fl (7.4-10.4); Monocytes Absolute Auto 0.4 K/mm3 (0.1-0.6); Monocytes Percent Auto 12.2 % (2.6-8.5); Neutrophils Absolute Auto 1.9 K/mm3 (1.3-6.7); Neutrophils Percent Auto 58.2 % (45.5-73.1); Platelet Count Result 209 k/mm3 (150-375); Red Blood Count 3.64 M/mm3 (4.2-5.4); Red Cell Distribution Width 13.7 % (11.5-14.5); White Blood Count 3.3 K/mm3 (4.5-10.0)
[2023-12-24 08:23] LABS: Glucose Point of Care 120 mg/dl (65-105)
[2023-12-24 08:28] LABS: Alanine Aminotransferase 24 U/L (6-35); Albumin Level 4.1 g/dL (3.5-5.1); Alkaline Phosphatase 90 U/L (38-126); Anion Gap 12 mmol/L (4-12); Aspartate Amino Transferase 32 U/L (14-36); Bilirubin,Total 0.3 mg/dL (0.2-1.3); Blood Urea Nitrogen 31 mg/dL (7-17); Calcium 9.2 mg/dL (8.4-10.2); Carbon Dioxide 21 mmol/L (22-30); Chloride 105 mmol/L (98-107); Estimated CRCL calculation 40 ml/min; Estimated Glomerular Filt Rate 44; Glucose 125 mg/dL (65-110); Sodium 138 mmol/L (137-145)
[2023-12-24 10:32] VITALS: O2SAT 96
[2023-12-24] MEDS: CHOLECALCIFEROL 400 UNITS TABLET (VIT D) PO (10:57)
[2023-12-24] MEDS: ROSUVASTATIN 20 MG TABLET 40 MG PO (10:57)
[2023-12-24] MEDS: FLUTICASONE PROPIONATE 0.05% NA SPR 16 GM BTL (*BKC) 1 SPRAY NASAL (10:57)
[2023-12-24] MEDS: CYANOCOBALAMIN 500 MCG TABLET PO (10:58)
--- NOTE | 2023-12-24 11:44 | PM.PNNEP ---
Progress Note: A&P Assessment and Plan (1) XANDER (acute kidney injury): Code(s): N17.9 - Acute kidney failure, unspecified Status: Acute Assessment and Plan: history would suggest volume depletion/dehydration previous creatinine in the last few months were normal creatinine has improved with IVFs and holding TONI-I follow trend of repeat labs (2) Nausea, vomiting, and diarrhea: Code(s): R11.2 - Nausea with vomiting, unspecified; R19.7 - Diarrhea, unspecified Status: Acute Assessment and Plan: as noted by admission history clinical improvement noted on IV antiemetics PRN (3) Ulcerative colitis: Code(s): K51.90 - Ulcerative colitis, unspecified, without complications Status: Chronic Assessment and Plan: known history s/p colectomy with ileostomy reported issues with increased ileostomy output (i.e. diarrhea) prior to admission continue supportive therapy (4) Type 2 diabetes mellitus: Code(s): E11.9 - Type 2 diabetes mellitus without complications Status: Acute Assessment and Plan: follow accu-cheks glycemic control per hospitalists Not opposed to discharge from renal perspective if otherwise medically stable. Will continue to follow. Subjective Date/time seen: 12/24/23 11:44 Interval history: Follow-up for acute kidney injury/acute renal failure. Renal function/creatinine continues to improve if not close to baseline with IVFs and holding TONI-I; no further nausea or vomiting at this time; feels reasonably well and in no apparent distress at the time of my visit. Exam Narrative: General: WD/WN female in NAD Heart: normal S1 and S2; no rub Lungs: clear to auscultation Abdomen: soft, nontender, nondistended, positive bowel sounds Extremities: no cyanosis or clubbing; no edema Skin: warm and dry Objective Data Vital Signs Vital Signs: Vital Signs Temp Pulse Resp BP Pulse Ox O2 Del Method 12/24/23 10:32 96 Room Air 12/24/23 06:00 98.2 F 64 18 132/62 95 12/23/23 20:00 98.6 F 75 18 142/42 H 96 12/23/23 16:00 97.6 F 62 16 126/55 L 97 12/23/23 15:46 103 H Intake/Output Intake/Output: Intake & Output 12/21/23 12/22/23 12/23/2312/23/24 23:59 23:59 23:59 23:59 Intake Total 2222 700 236 Output Total 175 Balance 2222 525 236 Meds/Results Medications: Active Medications Generic Name Dose Route Start Last Admin Trade Name Freq PRN Reason Stop Dose Admin Acetaminophen 650 mg 12/22/23 20:07 12/22/23 20:27 Acetaminophen 325 Mg Tablet PO 650 mg Q4H PRN Administration Mild Pain (1-3) or Fever Albuterol 1 puff 12/22/23 16:45 Albuterol Sulfate (*Sp) Aerosol 1 Puff INHALATION Q4H PRN shortness of breath or wheezing Cyanocobalamin 500 mcg 12/23/23 09:00 12/24/23 10:58 Cyanocobalamin 500 Mcg Tablet PO 500 mcg DAILY GAUTAM Administration Dextrose 12.5 gm 12/22/23 18:30 Dextrose 50% 25 Gm/50 Ml Syringe IV PUSH PRN PRN Hypoglycemia Protocol Fluticasone Propionate 1 spray 12/23/23 10:35 12/24/23 10:57 Fluticasone Propionate 0.05% Na Spr 16 Gm Btl (*Bkc) NASAL 1 spray Q12HR GAUTAM Administration Glucagon 1 mg 12/22/23 18:30 Glucagon For Inj 1 Mg Vial IM PRN PRN Hypoglycemia Protocol Glucose 15 gm 12/22/23 18:30 Glucose Oral Gel 15 Gm Of Glucse In 37.5 Gm Tube PO PRN PRN Hypoglycemia Protocol Heparin Sodium (Porcine) 5,000 units 12/22/23 21:00 12/24/23 10:56 Heparin Sodium 5,000 Units/Ml Vial SUB-Q Not Given Q12HR GAUTAM Dextrose 1,000 mls @ 100 mls/hr 12/22/23 18:30 Dextrose 5% 1,000 Ml IVPB PRN PRN Hypoglycemia Protocol Levothyroxine Sodium 50 mcg 12/23/23 06:30 12/24/23 06:08 Levothyroxine Sodium 50 Mcg Tablet PO 50 mcg DAILY@0630 GAUTAM Administration Ondansetron HCl 4 mg 12/22/23 18:52 Ondansetr
[2023-12-24 11:50] LABS: Glucose Point of Care 112 mg/dl (65-105)
--- NOTE | 2023-12-24 12:11 | PM.DS ---
DS: Admitting Diagnosis Discharge Date 12/24/2023 Admitting Diagnosis Nausea, vomiting, diarrhea DS: Discharge Diagnosis Discharge Diagnosis (1) Nausea: Code(s): R11.0 - Nausea Status: Resolved Assessment and Plan: hx of n/v and diarrhea, in-patient 07/08/2023 for similar symptoms - continue Zofran 4mg IV, q4 hrs PRN for nausea - resolved- monitor 12/24/2023: Date of discharge -patient's nausea has resolved. She has complaints or symptoms. She is stable for discharge. (2) Ulcerative colitis: Code(s): K51.90 - Ulcerative colitis, unspecified, without complications Status: Chronic Assessment and Plan: History of ulcerative colitis s/p: Colectomy with ileostomy -continue ileostomy supportive care 12/24/2023: Date of discharge -patient's ileostomy output changed. It is no longer watery and she now has formed soft stool. There have been no complications secondary to her chronic ileostomy. She is stable for discharge today. (3) Ileostomy in place: Code(s): Z93.2 - Ileostomy status Status: Chronic Assessment and Plan: -see plan above 12/24/2023: Date of discharge -see #2. (4) Type 2 diabetes mellitus without complications: Qualifiers: Diabetes mellitus termite exterminator insulin use: without termite exterminator use Qualified Code(s): E11.9 - Type 2 diabetes mellitus without complications Code(s): E11.9 - Type 2 diabetes mellitus without complications Status: Chronic Assessment and Plan: -last A1c 07/07/2023, was 7.1 -hold home medication metformin -initiate hypoglycemic protocol 12/24/2023: Date of discharge -continue home medication on discharge. Continue to monitor glucose. (5) Acute kidney injury superimposed on CKD: Code(s): N17.9 - Acute kidney failure, unspecified; N18.9 - Chronic kidney disease, unspecified Status: Resolved Assessment and Plan: -pt has hx of XANDER, has never follow-up with test engine mechanic in the past, Serum creatinine is 4.0 -continue to monitor BMP daily -continue telemetry monitoring -strict monitor I&O -hold home medication lisinopril -consult Nephrology in the a.m. 12/24/2023: Date of discharge -patient's XANDER has resolved. She was consulted on by Nephrology, Dr. Montes De Oca. She had favorable results with IV fluid hydration and control of nausea will be. He believe she is stable for discharge at this time with no nephrology follow-up. She is to follow up with primary care provider according to Nephrology for and referral as needed they can make (6) Increased ileostomy output: Code(s): R19.8 - Other specified symptoms and signs involving the digestive system and abdomen; Z93.2 - Ileostomy status Status: Resolved Assessment and Plan: 12/24/2023: Date of discharge -now resolved. Patient with soft formed stool in ostomy. DS: Summary Hospital Course Reason for hospitalization: XANDER Hospital Course: This very pleasant 73-year-old female patient with past medical history of hypothyroidism, hypertension, ulcerative colitis status post chronic ileostomy, chronic kidney disease stage 3, hyperlipidemia and GERD presented and was subsequently admitted on December 21 with complaints of having nausea vomiting diarrhea, weakness and fatigue for the past several days. Patient at that time was unable to eat or drink anything secondary to a fullness in her abdomen and noted that she had liquid stool per ostomy. In addition she states her ostomy output at that time was more pungent smelling. Patient was found have a creatinine of 4 ports 0 in the emergency room. Her baseline being normal. In addition patient fell a little short of breath. Patient received IV hydration and Nephrology was ordered with admission. Patient was consulted on by Nephrology and felt that her symptoms were hypovolemic as causation. They encouraged continued IV fluids and symptomatic control of the nausea vomiting and diarrhea.
[2023-12-25 15:03] LABS: Osmolality, Urine 392 mOsm/kg (50-1200)
== END 2023-12-24 15:15 | disposition home or self-care (01) | DRG 683 ==
LOC: ANHED 09:16 → ANH3MEDSUR 13:58
PROVIDERS: Nurse Practitioner; Admitting Provider Family Medicine; Emergency Provider Emergency Medicine; PCP Family Medicine; Visit Provider Nurse Practitioner Adult Health
DX: N17.9 Acute kidney failure, unspecified (principal); E87.1 Hypo-osmolality and hyponatremia; K51.90 Ulcerative colitis, unspecified, without complications; I12.9 Hypertensive chronic kidney disease with stage 1 through stage 4 chronic kidney disease, or unspecified chronic kidney disease; E11.22 Type 2 diabetes mellitus with diabetic chronic kidney disease; N18.30 Chronic kidney disease, stage 3 unspecified; E03.9 Hypothyroidism, unspecified; E78.5 Hyperlipidemia, unspecified; R11.2 Nausea with vomiting, unspecified; R19.7 Diarrhea, unspecified; K21.9 Gastro-esophageal reflux disease without esophagitis; Z93.2 Ileostomy status; Z90.49 Acquired absence of other specified parts of digestive tract; Z98.49 Cataract extraction status, unspecified eye; Z96.642 Presence of left artificial hip joint; Z96.652 Presence of left artificial knee joint; Z20.822 Contact with and (suspected) exposure to COVID-19
CPT/HCPCS: 36415; 71046; 80053; 81001; 82948; 83036; 83690; 83735; 83880; 83935; 84484; 85025; 87637; 93005; 96361; 96374; 99285; A9270; G0378; J2405; J7030

== ENCOUNTER 2024-01-03 10:43 | Outpatient (CLI) | payer MEDICARE, SELFPAY ==
[2024-01-03 11:27] LABS: Basophils Percent Auto 0.6 % (0.2-1.2); Eosinophils Absolute Auto 0.2 K/mm3 (0-0.3); Hematocrit 38.8 % (37.0-47.0); Hemoglobin 12.6 g/dL (12.0-15.0); Immature Granulocyte Absolute 0.01 K/mm3 (0.00-0.031); Immature Granulocyte Percent A 0.2 % (0-0.5); Lymphocytes Absolute Auto 1.16 K/mm3 (0.9-3.2); Lymphocytes Percent Auto 23.3 % (18.3-44.2); Mean Corpuscular HGB Conc 32.5 g/dl (32-36); Mean Corpuscular Hemoglobin 29.4 pg (26-34); Mean Corpuscular Volume 90.7 fl (80-100); Mean Platelet Volume 9.7 fl (7.4-10.4); Monocytes Absolute Auto 0.5 K/mm3 (0.1-0.6); Monocytes Percent Auto 10.4 % (2.6-8.5); Neutrophils Absolute Auto 3.1 K/mm3 (1.3-6.7); Neutrophils Percent Auto 61.5 % (45.5-73.1); Platelet Count Result 225 k/mm3 (150-375); Red Blood Count 4.28 M/mm3 (4.2-5.4); Red Cell Distribution Width 13.6 % (11.5-14.5)
[2024-01-03 11:45] LABS: Alanine Aminotransferase 21 U/L (6-35); Albumin Level 4.8 g/dL (3.5-5.1); Alkaline Phosphatase 82 U/L (38-126); Anion Gap 14 mmol/L (4-12); Aspartate Amino Transferase 36 U/L (14-36); Bilirubin,Total 0.5 mg/dL (0.2-1.3); Blood Urea Nitrogen 16 mg/dL (7-17); Carbon Dioxide 23 mmol/L (22-30); Chloride 101 mmol/L (98-107); Cholesterol 191 mg/dL (0-200); Estimated Glomerular Filt Rate 49; Glucose 112 mg/dL (65-110); HDL Direct 47 mg/dL; Sodium 138 mmol/L (137-145); Triglycerides 206 mg/dL (<150)
[2024-01-03 12:03] LABS: LDL Cholesterol Direct 92 mg/dL
[2024-01-03 12:18] LABS: Free T4 Free Thyroxine 1.07 ng/mL (0.78-2.19)
[2024-01-03 12:20] LABS: Creatinine Urine 84.9 mg/dL
[2024-01-03 12:25] LABS: MALB Creatinine Ratio 7.4 mg/g (0-30); Microalbumin Urine Random 6.3 mg/L (0-16.7)
[2024-01-03 13:54] LABS: Folic Acid > 20.0 ng/mL (2.76->20)
== END 2024-01-03 10:44 | disposition home or self-care (01) ==
PROVIDERS: PCP Family Medicine; Visit Provider Nurse Practitioner Adult Health
DX: E03.9 Hypothyroidism, unspecified (principal); E11.9 Type 2 diabetes mellitus without complications; N18.30 Chronic kidney disease, stage 3 unspecified; R09.89 Other specified symptoms and signs involving the circulatory and respiratory systems; R39.9 Unspecified symptoms and signs involving the genitourinary system; K85.90 Acute pancreatitis without necrosis or infection, unspecified; E86.0 Dehydration
CPT/HCPCS: 36415; 80053; 80061; 82043; 82607; 82746; 84439; 84443; 85025

== ENCOUNTER 2024-01-07 09:22 | Emergency (ER) | payer MEDICARE, SELFPAY ==
[2024-01-07] VITALS (7 sets, daily range): BP systolic 115–133; BP diastolic 42–68; PULSE 72–97; RESP 16–20; TEMP 36.6; O2SAT 93–97
--- NOTE | ~2024-01-07 | XR_ITS ---
EXAMINATION: XR chest 2V DATE: 01/07/2024 09:58 INDICATION: Shortness of breath TECHNIQUE: PA and lateral views of the chest were obtained. COMPARISON: 12/22/2023 FINDINGS: The lungs are clear with no focal airspace opacities, pulmonary edema, pleural effusion or pneumothor ax. Heart size is normal with small left pericardial fat pad. Mild thoracic spondylosis with chronic mild anterior wedging of an upper thoracic vertebral body. IMPRESSION: 1. No acute cardiopulmonary disease. Reviewed, dictated and finalized at location B.
--- NOTE | ~2024-01-07 | CT_ITS ---
EXAMINATION: CT abdomen pelvis w con DATE: 01/07/2024 11:41 INDICATION: Abdominal pain. TECHNIQUE: Computed tomography (CT) of the abdomen and pelvis was performed with 100 mL Omnipaque 350 intravenous contrast. Automated exposure control and iterative reconstruction technique were employe d. The dose-length product was 666.40 mGy-cm. COMPARISON: CT abdomen and pelvis 11/15/2023 FINDINGS: The visualized portions of the lung bases demonstrate mild atelectasis. No pleural effusion . The heart size is normal. No pericardial effusion. The liver and spleen are normal. There are santo es of cholecystectomy. The pancreas, adrenal glands, and right kidney are normal. There is a 4 mm cys t in left kidney. There are no dilated loops of bowel. There is a right-sided ostomy. There are santo es of colectomy. Presacral scarring is again seen. There are no pathologically enlarged lymph nodes. There is no free intraperitoneal fluid. There is a total left hip arthroplasty. There is severe lumba r spondylosis and mild thoracic spondylosis. IMPRESSION: 1. No etiology for the patient's symptoms. Reviewed, dictated and finalized at location A.
--- NOTE | 2024-01-07 09:29 | ECG_ITS ---
Test Date: 2024-01-07 09:31:50 Measurements Intervals [place] Rate: 97 P: 42 NV: 166 QRS: 7 QRSD: 83 T: 33 QT: 323 QTc: 411 Interpretive Statements SINUS RHYTHM POSSIBLE LEFT ATRIAL ENLARGEMENT DELAYED PRECORDIAL R/S TRANSITION BORDERLINE ST-T WAVE ABNORMALITY- HIGH LATERAL LEADS BASELINE ARTIFACT- II, III, AVL, AVF BORDERLINE ECG Compared to ECG 12/22/2023 13:58:24 No significant changes Electronically Signed On 01-07-2024 10:40:10 CDT by Haroldo Diop D.O.
[2024-01-07 09:50] LABS: Basophils Percent Auto 0.1 % (0.2-1.2); Eosinophils Absolute Auto 0.4 K/mm3 (0-0.3); Eosinophils Percent Auto 3.4 % (0-4.4); Hematocrit 41.8 % (37.0-47.0); Hemoglobin 13.5 g/dL (12.0-15.0); Immature Granulocyte Absolute 0.03 K/mm3 (0.00-0.031); Immature Granulocyte Percent A 0.3 % (0-0.5); Lymphocytes Absolute Auto 0.94 K/mm3 (0.9-3.2); Lymphocytes Percent Auto 8.9 % (18.3-44.2); Mean Corpuscular HGB Conc 32.3 g/dl (32-36); Mean Corpuscular Volume 89.9 fl (80-100); Monocytes Absolute Auto 0.7 K/mm3 (0.1-0.6); Monocytes Percent Auto 6.2 % (2.6-8.5); Neutrophils Absolute Auto 8.6 K/mm3 (1.3-6.7); Neutrophils Percent Auto 81.1 % (45.5-73.1); Platelet Count Result 274 k/mm3 (150-375); Red Blood Count 4.65 M/mm3 (4.2-5.4); Red Cell Distribution Width 13.6 % (11.5-14.5); White Blood Count 10.5 K/mm3 (4.5-10.0)
[2024-01-07] MEDS: ONDANSETRON INJ 4 MG/2 ML VIAL IV PUSH (10:18)
[2024-01-07 10:19] LABS: Alanine Aminotransferase 28 U/L (6-35); Albumin Level 5.2 g/dL (3.5-5.1); Alkaline Phosphatase 115 U/L (38-126); Anion Gap 18 mmol/L (4-12); Aspartate Amino Transferase 47 U/L (14-36); Bilirubin,Total 0.6 mg/dL (0.2-1.3); Blood Urea Nitrogen 23 mg/dL (7-17); Calcium 10.2 mg/dL (8.4-10.2); Carbon Dioxide 13 mmol/L (22-30); Chloride 103 mmol/L (98-107); Estimated CRCL calculation 29 ml/min; Estimated Glomerular Filt Rate 32; Glucose 168 mg/dL (65-110); Magnesium 1.3 mg/dL (1.6-2.3); Potassium 4.5 mmol/L (3.4-5.0); Sodium 134 mmol/L (137-145)
[2024-01-07 10:21] LABS: Prothrombin Time 13.3 Seconds (11.1-14.7)
[2024-01-07 10:22] LABS: Partial Thromboplastin Time 25.9 Seconds (22.3-36.8)
[2024-01-07 10:31] LABS: Troponin I < 0.012 ng/mL (0.000-0.034)
[2024-01-07] MEDS: SODIUM CHLORIDE 0.9% IV 1,000 ML 999 ML IV CONT (10:44)
[2024-01-07] MEDS: MAGNESIUM SULF 2 GM/WATER 50ML 2 GM/50 ML BAG IVPB (10:44)
[2024-01-07 10:59] LABS: Influenza A QL RT-PCR Negative (Negative); Influenza B QL RT-PCR Negative (Negative); RSV RNA, RT-PCR Negative (Negative); SARS-CoV-2 RNA PCR Negative (Negative)
[2024-01-07 11:00] LABS: Procalcitonin 0.1 ng/mL
[2024-01-07 12:28] LABS: Add Urine Microscopic? YES; Appearance Urine Cloudy (Clear); Bacteria Urine None Seen /hpf; Bilirubin Urine Negative (Negative); Blood Urine Negative (Negative); Color Urine Dark Yellow (Yellow); Glucose Urine UA Negative (Negative); Granular Casts Urine Present /lpf; Hyaline Casts Urine Present /lpf; Ketones Urine Trace mg/dL (Negative); Leukocyte Esterase Ur Negative LEU/UL (Negative); Need Manual Microscopic Reviewed; Nitrate Urine Negative (Negative); Non Pathogenic Casts >20; Protein Urine 1+ mg/dL (Negative); Specific Grav Ur 1.021 (1.001-1.035); Squamous Epithelial Cell Urine Few /hpf (Few); Urobilinogen Urine 0.2 mg/dL (<2.0); WBC Urine 0-5 /hpf (0-3); pH Urine 5.5 (5.0-9.0)
[2024-01-07 12:40] LABS: Lactic Acid Reflex 0.8 mmol/L (0.7-2.0)
[2024-01-07 12:50] LABS: NT Pro B Type Natriuretic Pept 37 pg/mL (19.9-100)
[2024-01-07 12:53] LABS: Troponin I < 0.012 ng/mL (0.000-0.034)
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
== END 2024-01-07 14:08 | disposition home or self-care (01) ==
PROVIDERS: Emergency Provider Emergency Medicine; PCP Family Medicine
DX: R11.2 Nausea with vomiting, unspecified (principal); E83.42 Hypomagnesemia; Z20.822 Contact with and (suspected) exposure to COVID-19; K21.9 Gastro-esophageal reflux disease without esophagitis; N18.30 Chronic kidney disease, stage 3 unspecified; E78.5 Hyperlipidemia, unspecified; E03.9 Hypothyroidism, unspecified; G47.30 Sleep apnea, unspecified; E11.9 Type 2 diabetes mellitus without complications
CPT/HCPCS: 36415; 71046; 74177; 80053; 81001; 83605; 83735; 83880; 84145; 84484; 85025; 85610; 85730; 87637; 93005; 96365; 96366; 96375; 99284; J2405; J3475; J7030; Q9967

== ENCOUNTER 2024-01-09 19:02 | Inpatient (IN) | payer MEDICARE, SELFPAY ==
--- NOTE | ~2024-01-09 | XR_ITS ---
XR chest 2V Ordering provider: Jean Paul Barrios MD History: 73 years Female with . dizziness/hypotension . Comparison: January 07, 2024 FINDINGS: MEDIASTINUM: The cardiac silhouette is not enlarged. LUNGS: No infiltrates, effusions or pneumothorax. OTHER: No free air under the diaphragm. Degenerative changes of the spine. IMPRESSION: No acute cardiopulmonary pathology. Reviewed, dictated and finalized at location A.
[2024-01-09 19:06] VITALS: BP 85/54; PULSE 110; RESP 20; TEMP 36.2; O2SAT 98
--- NOTE | 2024-01-09 19:19 | ECG_ITS ---
Test Date: 2024-01-09 19:26:32 Measurements Intervals [place] Rate: 96 P: 43 AR: 162 QRS: 21 QRSD: 85 T: 42 QT: 340 QTc: 430 Interpretive Statements SINUS RHYTHM POSSIBLE LEFT ATRIAL ENLARGEMENT MINIMAL Q WAVES- INFERIOR LEADS BASELINE ARTIFACT- I, III, AVR, AVL, AVF BORDERLINE ECG Compared to ECG 01/07/2024 09:31:50 No significant changes Electronically Signed On 01-09-2024 19:28:32 CDT by Haroldo Diop D.O.
[2024-01-09 20:05] LABS: Basophils Percent Auto 0.1 % (0.2-1.2); Eosinophils Absolute Auto 0.3 K/mm3 (0-0.3); Eosinophils Percent Auto 3.6 % (0-4.4); Hematocrit 38.7 % (37.0-47.0); Hemoglobin 12.8 g/dL (12.0-15.0); Immature Granulocyte Absolute 0.04 K/mm3 (0.00-0.031); Immature Granulocyte Percent A 0.4 % (0-0.5); Lymphocytes Absolute Auto 1.11 K/mm3 (0.9-3.2); Lymphocytes Percent Auto 11.9 % (18.3-44.2); Mean Corpuscular HGB Conc 33.1 g/dl (32-36); Mean Corpuscular Hemoglobin 29.4 pg (26-34); Monocytes Absolute Auto 0.5 K/mm3 (0.1-0.6); Monocytes Percent Auto 5.7 % (2.6-8.5); Neutrophils Absolute Auto 7.3 K/mm3 (1.3-6.7); Neutrophils Percent Auto 78.3 % (45.5-73.1); Platelet Count Result 319 k/mm3 (150-375); Red Blood Count 4.35 M/mm3 (4.2-5.4); Red Cell Distribution Width 13.7 % (11.5-14.5); White Blood Count 9.4 K/mm3 (4.5-10.0)
[2024-01-09 20:13] LABS: Lactic Acid Reflex 1.2 mmol/L (0.7-2.0)
[2024-01-09 20:29] LABS: Alanine Aminotransferase 28 U/L (6-35); Alkaline Phosphatase 123 U/L (38-126); Anion Gap 17 mmol/L (4-12); Aspartate Amino Transferase 40 U/L (14-36); Bilirubin,Total 0.6 mg/dL (0.2-1.3); Blood Urea Nitrogen 35 mg/dL (7-17); Calcium 10.7 mg/dL (8.4-10.2); Carbon Dioxide 14 mmol/L (22-30); Chloride 102 mmol/L (98-107); Estimated CRCL calculation 22 ml/min; Estimated Glomerular Filt Rate 22; Glucose 153 mg/dL (65-110); Lipase 311 U/L (23-300); Magnesium 1.7 mg/dL (1.6-2.3); Potassium 4.3 mmol/L (3.4-5.0); Sodium 133 mmol/L (137-145); Troponin I < 0.012 ng/mL (0.000-0.034)
[2024-01-09] MEDS: SODIUM CHLORIDE 0.9% IV 1,000 ML 999 ML IV CONT ×3 (20:48→22:11)
[2024-01-09] MEDS: ONDANSETRON INJ 4 MG/2 ML VIAL IV PUSH (20:50)
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
[2024-01-09 21:20] VITALS: BP 92/36; PULSE 77; RESP 15; O2SAT 97
[2024-01-09 21:25] LABS: Procalcitonin 0.3 ng/mL
[2024-01-09 22:58] LABS: Add Urine Microscopic? YES; Appearance Urine Cloudy (Clear); Bacteria Urine None Seen /hpf; Bilirubin Urine Negative (Negative); Blood Urine Negative (Negative); Color Urine Dark Yellow (Yellow); Glucose Urine UA Negative (Negative); Hyaline Casts Urine Present /lpf; Ketones Urine Negative (Negative); Leukocyte Esterase Ur Trace LEU/UL (Negative); Mucus Urine Present /lpf; Need Manual Microscopic Reviewed; Nitrate Urine Negative (Negative); Non Pathogenic Casts >20; Protein Urine 2+ mg/dL (Negative); RBC Urine 0-2 /hpf (0-2); Specific Grav Ur 1.011 (1.001-1.035); Squamous Epithelial Cell Urine Occasional /hpf (Few); Urobilinogen Urine 0.2 mg/dL (<2.0); pH Urine 5.5 (5.0-9.0)
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
[2024-01-09 23:45] VITALS: BP 110/32; PULSE 81; RESP 15; TEMP 36.3; O2SAT 99
[2024-01-10] VITALS (13 sets, daily range): BP systolic 98–115; BP diastolic 35–42; PULSE 70–97; RESP 15–20; TEMP 35.7–36.8; O2SAT 93–100
--- NOTE | 2024-01-10 00:26 | ADMGEN ---
This patient, Mariya Villanueva, was admitted to IMU Room 211-01 on 01/09/24 at 2303. Patient/family oriented to hospital policies and general routines including ID bracelet, bed and alarms, visiting hours, pain management, procedures, bathroom and other care routines, personal items, smoking policy, room service/diet, and visiting hours. Information on how to activate the Rapid Response Team has been discussed. Patient/Family are encouraged to report perceived risks to care and to ask questions if they do not understand what they are told or what they should do.
[2024-01-10] MEDS: SODIUM CHLORIDE 0.9% IV 1,000 ML 125 ML IV CONT ×4 (02:00→20:24)
[2024-01-10 05:06] LABS: Basophils Percent Auto 0.1 % (0.2-1.2); Eosinophils Absolute Auto 0.5 K/mm3 (0-0.3); Eosinophils Percent Auto 6.1 % (0-4.4); Hematocrit 32.9 % (37.0-47.0); Hemoglobin 10.5 g/dL (12.0-15.0); Immature Granulocyte Absolute 0.02 K/mm3 (0.00-0.031); Immature Granulocyte Percent A 0.3 % (0-0.5); Lymphocytes Absolute Auto 1.04 K/mm3 (0.9-3.2); Lymphocytes Percent Auto 13.2 % (18.3-44.2); Mean Corpuscular HGB Conc 31.9 g/dl (32-36); Mean Corpuscular Volume 90.9 fl (80-100); Mean Platelet Volume 10.2 fl (7.4-10.4); Monocytes Absolute Auto 0.5 K/mm3 (0.1-0.6); Monocytes Percent Auto 6.6 % (2.6-8.5); Neutrophils Absolute Auto 5.8 K/mm3 (1.3-6.7); Neutrophils Percent Auto 73.7 % (45.5-73.1); Platelet Count Result 205 k/mm3 (150-375); Red Blood Count 3.62 M/mm3 (4.2-5.4); Red Cell Distribution Width 13.7 % (11.5-14.5); White Blood Count 7.9 K/mm3 (4.5-10.0)
[2024-01-10 05:24] LABS: Anion Gap 13 mmol/L (4-12); Blood Urea Nitrogen 34 mg/dL (7-17); Calcium 9.5 mg/dL (8.4-10.2); Carbon Dioxide 16 mmol/L (22-30); Chloride 107 mmol/L (98-107); Estimated CRCL calculation 26 ml/min; Estimated Glomerular Filt Rate 26; Glucose 111 mg/dL (65-110); Potassium 4.4 mmol/L (3.4-5.0); Sodium 136 mmol/L (137-145)
[2024-01-10] MEDS: PANTOPRAZOLE 40 MG TABLET PO (08:33)
[2024-01-10] MEDS: MAGNESIUM OXIDE 400 MG TABLET PO ×2 (08:33→16:57)
[2024-01-10] MEDS: LEVOTHYROXINE SODIUM 50 MCG TABLET PO (08:33)
[2024-01-10] MEDS: PARoxetine 20 MG TABLET PO (08:33)
[2024-01-10] MEDS: FLUTICASONE PROPIONATE 0.05% NA SPR 16 GM BTL (*BKC) 2 SPRAY NASAL (08:39)
[2024-01-10 11:59] LABS: Glucose Point of Care 119 mg/dl (65-105)
--- NOTE | 2024-01-10 15:08 | P.PNIM_ITS ---
Progress Note: A&P Assessment and Plan (1) Acute kidney injury superimposed on CKD: Code(s): N17.9 - Acute kidney failure, unspecified; N18.9 - Chronic kidney disease, unspecified Status: Resolved Assessment and Plan: Started on fluid Her baseline varies from 1.6 this April, 4.0 in May, 3.1 in June, 0.9 in July and September, 4.0 in November Creatinine level has several spikes Nephrology is consulted (2) Ileostomy in place: Code(s): Z93.2 - Ileostomy status Status: Chronic Assessment and Plan: Recent increase in output. Denies any blood in the stool. (3) Ulcerative colitis: Code(s): K51.90 - Ulcerative colitis, unspecified, without complications Status: Chronic Assessment and Plan: Status post total colectomy Consulted GI (4) Gastroesophageal reflux disease: Qualifiers: Esophagitis presence: without esophagitis Qualified Code(s): K21.9 - Gastro-esophageal reflux disease without esophagitis Code(s): K21.9 - Gastro-esophageal reflux disease without esophagitis Status: Acute (5) Type 2 diabetes mellitus: Code(s): E11.9 - Type 2 diabetes mellitus without complications Status: Acute Assessment and Plan: Holding metformin (6) Dehydration: Code(s): E86.0 - Dehydration Status: Acute Assessment and Plan: Secondary to increased ileostomy output Receiving NS (7) Obstructive sleep apnea on CPAP: Code(s): G47.33 - Obstructive sleep apnea (adult) (pediatric); Z99.89 - Dependence on other enabling machines and devices Status: Acute Assessment and Plan: CPAP at nighttime (8) Hyponatremia: Code(s): E87.1 - Hypo-osmolality and hyponatremia Status: Acute Assessment and Plan: Likely secondary to GI losses (9) Increased ileostomy output: Code(s): R19.8 - Other specified symptoms and signs involving the digestive system and abdomen; Z93.2 - Ileostomy status Status: Resolved Assessment and Plan: Receiving NS (10) UTI (urinary tract infection): Code(s): N39.0 - Urinary tract infection, site not specified Status: Acute Assessment and Plan: Started Rocephin Await cultures Subjective Date/time seen: 01/10/24 15:08 Interval history: Patient reports past 6 months she has a episodes of dehydration and dizziness and visited multiple times in the ER but unfortunately no clear diagnosis was given. Patient reports of limitation of activity. Patient received 3 L of bolus at ED and 1 L of bolus in the floor due to hypertension. Currently her blood pressure is 105 x 38. 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 have any signs of hypotension like dizziness or headache.Patient has a past medical history of ulcerative colitis. Recently her ileostomy output has been increased. Patient denies any blood in the stool. GI is consulted to rule out exacerbation of ulcerative colitis. Echocardiogram has been performed to rule out any CHF. Review of Systems Review of Systems: Increased ileostomy output, generalized weakness Exam Narrative: Patient is laying in a bed Const: General: comfortable, no acute distress, well developed, alert, awake, ill appearing, overweight and other (Generalized pallor) Nutritional Appearance: overweight Orientation/consciousness: patient oriented x3 HENMT: Head: normal to inspection, normocephalic and atraumatic Ears: hearing grossly normal bilaterally Face/Nose/Sinus: normal facial exam Face and sinus: normal facial exam Eyes: General: appearance normal, both eyes and all related structures Pupils: Equal, round and reactive pupils present EOM: EOMs intact bilaterally Neck: Neck: full ROM, no lymphadenopathy and no JVD Thyroid: thyroid normal Lymphatic: no lymphadenopathy noted Resp: Effort & Inspection: normal respiratory effort and able to speak in complete sentences Auscultation: clear to auscultation bilaterally Cardio: Jugular venous distension: no JVD Rate: regular rate Rhythm: regular rhythm Heart sounds: S1 normal heart sound present and S2 normal heart sound present GI: Inspection: other (Ileostomy in place) : General: Yes deferred Skin: Rashes: no rashes Wounds: no wounds Neuro: General: patient oriented x3 and CN's II-XI intact bilaterally Cranial nerves: Yes CN's II-XII intact bilaterally and Yes Equal, round and reactive pupils present Cognition (Neuro): normal cognition Speech: normal speech Gait exam (Neuro): Normal gait present Motor exam (neuro): 5/5 motor strength present throughout Extrem: General: normal to inspection, full ROM, no joint enlargement and no pedal edema Objective Data Vital Signs Vital Signs: Vital Signs - 24 hr 01/09/24 19:06 01/09/24 21:20 01/09/24 23:45 Temperature 97.1 F L 97.4 F L Pulse Rate 110 H 77 81 Respiratory Rate 20 15 15 Blood Pressure 85/54 L 92/36 L 110/32 L Pulse Oximetry 98 97 99 Oxygen Delivery Room Air 01/10/24 00:00 01/10/24 04:00 01/10/24 04:09 Temperature 97.1 F L Pulse Rate 76 76 97 Respiratory Rate 15 15 16 Blood Pressure 99/35 L Pulse Oximetry 99 99 97 Oxygen Delivery Room Air Room Air 01/10/24 08:00 01/10/24 08:00 01/10/24 08:00 Temperature 97.9 F Pulse Rate 84 82 Respiratory Rate 20 Blood Pressure 115/37 L Pulse Oximetry 96 Oxygen Delivery Room Air 01/10/24 12:00 01/10/24 12:00 01/10/24 10:00 Temperature 96.3 F L Pulse Rate 73 76 Respiratory Rate 20 Blood Pressure 105/35 L Pulse Oximetry 100 Oxygen Delivery Room Air 01/10/24 12:00 01/10/24 14:00 Temperature Pulse Rate 84 70 Respiratory Rate Blood Pressure Pulse Oximetry Oxygen Delivery Intake/Output Intake/Output: Intake & Output 01/07/24 01/08/24 01/09/24 01/10/24 23:59 23:59 23:59 23:59 Intake Total 1999 2224.6 Output Total 502 Balance 1999 1722.6 Meds/Results Medications: Active Medications Generic Name Dose Route Start Last Admin Trade Name Freq PRN Reason Stop Dose Admin Acetaminophen 650 mg 01/09/24 21:57 Acetaminophen 325 Mg Tablet PO Q4H PRN Mild Pain (1-3) or Fever Albuterol 1 puff 01/10/24 05:10 Albuterol Sulfate (*Sp) Aerosol 1 Puff INHALATION Q4HRT PRN shortness of breath or wheezing Fluticasone Propionate 2 spray 01/10/24 05:10 01/10/24 08:39 Fluticasone Propionate 0.05% Na Spr 16 Gm Btl (*Bkc) NASAL 2 spray DAILY PRN Administration nasal congestion Sodium Chloride 1,000 mls @ 125 mls/hr 01/09/24 22:00 01/10/24 12:07 Normal Saline Iv IV CONT 125 mls/hr .Q8H GAUTAM Administration Ceftriaxone Sodium 1 gm in 50 mls @ 100 mls/hr 01/10/24 06:00 01/10/24 09:03 Rocephin 1 Gm/Ns 50 Ml IVPB Infused Q24H GAUTAM Infusion Levothyroxine Sodium 50 mcg 01/10/24 06:30 01/10/24 08:33 Levothyroxine Sodium 50 Mcg Tablet PO 50 mcg DAILY@0630 GAUTAM Administration Magnesium Oxide 400 mg 01/10/24 09:00 01/10/24 08:33 Magnesium Oxide 400 Mg Tablet PO 400 mg BID GAUTAM Administration Ondansetron HCl 4 mg 01/09/24 21:57 Ondansetron Inj 4 Mg/2 Ml Vial IV PUSH Q4H PRN Nausea Pantoprazole Sodium 40 mg 01/10/24 09:00 01/10/24 08:33 Pantoprazole 40 Mg Tablet PO 02/09/24 08:59 40 mg DAILY GAUTAM Administration Paroxetine HCl 20 mg 01/10/24 09:00 01/10/24 08:33 Paroxetine 20 Mg Tablet PO 20 mg QAM GAUTAM Administration Radiology Results: ITS Impressions Chest X-Ray 01/09/24 20:05 IMPRESSION: No acute cardiopulmonary pathology. Labs Labs: Laboratory Results - last 24 hr 01/09/24 01/09/24 01/09/24 19:55 19:55 19:55 WBC 9.4 RBC 4.35 Hgb 12.8 Hct 38.7 MCV 89.0 MCH 29.4 MCHC 33.1 RDW 13.7 Plt Count 319 MPV 10.0 Immature Gran % (Auto) 0.4 Neut % (Auto) 78.3 H Lymph % (Auto) 11.9 L [place] % (Auto) 5.7 Eos % (Auto) 3.6 Baso % (Auto) 0.1 L Lymph # (Auto) 1.11 [place] # (Auto) 0.5 Eos # (Auto) 0.3 Baso # (Auto) 0.0 Abs Immat Gran (auto) 0.04 H Absolute Neuts (auto) 7.3 H Absolute Nucleated RBC 0.000 Nucleated RBC % 0.0 Sodium Cancelled 133 L Potassium Cancelled 4.3 Chloride Cancelled Carbon Dioxide Anion Gap BUN Creatinine Estim Creat Clear Calc Estimated GFR Glucose POC Capillary Glucose Lactic Acid Calcium Magnesium Total Bilirubin AST ALT Alkaline Phosphatase Troponin I Total Protein Albumin Lipase Procalcitonin Urine Color Urine Appearance Urine pH Ur Specific [place] Urine Protein Urine Glucose (UA) Urine Ketones Ur Blood (Man) Urine Nitrate Urine Bilirubin Urine Urobilinogen Add Ur Microanalysis Leukocyte Esterase Rfl Urine RBC Urine WBC Ur Squamous Epith Cells Urine Bacteria Urine Casts Hyaline Casts Urine Mucus 01/09/24 01/09/24 01/09/24 19:55 19:55 19:55 WBC RBC Hgb Hct MCV MCH MCHC RDW Plt Count MPV Immature Gran % (Auto) Neut % (Auto) Lymph % (Auto) [place] % (Auto) Eos % (Auto) Baso % (Auto) Lymph # (Auto) [place] # (Auto) Eos # (Auto) Baso # (Auto) Abs Immat Gran (auto) Absolute Neuts (auto) Absolute Nucleated RBC Nucleated RBC % Sodium Potassium Chloride 102 Carbon Dioxide Cancelled 14 L Anion Gap Cancelled 17 H BUN Cancelled Creatinine Estim Creat Clear Calc Estimated GFR Glucose POC Capillary Glucose Lactic Acid Calcium Magnesium Total Bilirubin AST ALT Alkaline Phosphatase Troponin I Total Protein Albumin Lipase Procalcitonin Urine Color Urine Appearance Urine pH Ur Specific [place] Urine Protein Urine Glucose (UA) Urine Ketones Ur Blood (Man) Urine Nitrate Urine Bilirubin Urine Urobilinogen Add Ur Microanalysis Leukocyte Esterase Rfl Urine RBC Urine WBC Ur Squamous Epith Cells Urine Bacteria Urine Casts Hyaline Casts Urine Mucus 01/09/24 01/09/24 01/09/24 19:55 19:55 19:55 WBC RBC Hgb Hct MCV MCH MCHC RDW Plt Count MPV Immature Gran % (Auto) Neut % (Auto) Lymph % (Auto) [place] % (Auto) Eos % (Auto) Baso % (Auto) Lymph # (Auto) [place] # (Auto) Eos # (Auto) Baso # (Auto) Abs Immat Gran (auto) Absolute Neuts (auto) Absolute Nucleated RBC Nucleated RBC % Sodium Potassium Chloride Carbon Dioxide Anion Gap BUN 35 H D Creatinine Cancelled 2.20 H Estim Creat Clear Calc Cancelled 22 Estimated GFR Cancelled Glucose POC Capillary Glucose Lactic Acid Calcium Magnesium Total Bilirubin AST ALT Alkaline Phosphatase Troponin I Total Protein Albumin Lipase Procalcitonin Urine Color Urine Appearance Urine pH Ur Specific [place] Urine Protein Urine Glucose (UA) Urine Ketones Ur Blood (Man) Urine Nitrate Urine Bilirubin Urine Urobilinogen Add Ur Microanalysis Leukocyte Esterase Rfl Urine RBC Urine WBC Ur Squamous Epith Cells Urine Bacteria Urine Casts Hyaline Casts Urine Mucus 01/09/24 01/09/24 01/09/24 19:55 19:55 19:55 WBC RBC Hgb Hct MCV MCH MCHC RDW Plt Count MPV Immature Gran % (Auto) Neut % (Auto) Lymph % (Auto) [place] % (Auto) Eos % (Auto) Baso % (Auto) Lymph # (Auto) [place] # (Auto) Eos # (Auto) Baso # (Auto) Abs Immat Gran (auto) Absolute Neuts (auto) Absolute Nucleated RBC Nucleated RBC % Sodium Potassium Chloride Carbon Dioxide Anion Gap BUN Creatinine Estim Creat Clear Calc Estimated GFR 22 L Glucose Cancelled 153 H POC Capillary Glucose Lactic Acid 1.2 Calcium Cancelled 10.7 H Magnesium 1.7 Total Bilirubin Cancelled AST ALT Alkaline Phosphatase Troponin I Total Protein Albumin Lipase Procalcitonin Urine Color Urine Appearance Urine pH Ur Specific [place] Urine Protein Urine Glucose (UA) Urine Ketones Ur Blood (Man) Urine Nitrate Urine Bilirubin Urine Urobilinogen Add Ur Microanalysis Leukocyte Esterase Rfl Urine RBC Urine WBC Ur Squamous Epith Cells Urine Bacteria Urine Casts Hyaline Casts Urine Mucus 01/09/24 01/09/24 01/09/24 19:55 19:55 19:55 WBC RBC Hgb Hct MCV MCH MCHC RDW Plt Count MPV Immature Gran % (Auto) Neut % (Auto) Lymph % (Auto) [place] % (Auto) Eos % (Auto) Baso % (Auto) Lymph # (Auto) [place] # (Auto) Eos # (Auto) Baso # (Auto) Abs Immat Gran (auto) Absolute Neuts (auto) Absolute Nucleated RBC Nucleated RBC % Sodium Potassium Chloride Carbon Dioxide Anion Gap BUN Creatinine Estim Creat Clear Calc Estimated GFR Glucose POC Capillary Glucose Lactic Acid Calcium Magnesium Total Bilirubin 0.6 AST Cancelled 40 H ALT Cancelled 28 Alkaline Phosphatase Cancelled Troponin I Total Protein Albumin Lipase Procalcitonin Urine Color Urine Appearance Urine pH Ur Specific [place] Urine Protein Urine Glucose (UA) Urine Ketones Ur Blood (Man) Urine Nitrate Urine Bilirubin Urine Urobilinogen Add Ur Microanalysis Leukocyte Esterase Rfl Urine RBC Urine WBC Ur Squamous Epith Cells Urine Bacteria Urine Casts Hyaline Casts Urine Mucus 01/09/24 01/09/24 01/09/24 19:55 19:55 19:55 WBC RBC Hgb Hct MCV MCH MCHC RDW Plt Count MPV Immature Gran % (Auto) Neut % (Auto) Lymph % (Auto) [place] % (Auto) Eos % (Auto) Baso % (Auto) Lymph # (Auto) [place] # (Auto) Eos # (Auto) Baso # (Auto) Abs Immat Gran (auto) Absolute Neuts (auto) Absolute Nucleated RBC Nucleated RBC % Sodium Potassium Chloride Carbon Dioxide Anion Gap BUN Creatinine Estim Creat Clear Calc Estimated GFR Glucose POC Capillary Glucose Lactic Acid Calcium Magnesium Total Bilirubin AST ALT Alkaline Phosphatase 123 Troponin I < 0.012 Total Protein Cancelled 9.0 H Albumin Cancelled 5.0 Lipase 311 H Procalcitonin 0.3 Urine Color Urine Appearance Urine pH Ur Specific [place] Urine Protein Urine Glucose (UA) Urine Ketones Ur Blood (Man) Urine Nitrate Urine Bilirubin Urine Urobilinogen Add Ur Microanalysis Leukocyte Esterase Rfl Urine RBC Urine WBC Ur Squamous Epith Cells Urine Bacteria Urine Casts Hyaline Casts Urine Mucus 01/09/24 01/10/24 01/10/24 22:37 04:29 11:44 WBC 7.9 RBC 3.62 L Hgb 10.5 L Hct 32.9 L MCV 90.9 MCH 29.0 MCHC 31.9 L RDW 13.7 Plt Count 205 MPV 10.2 Immature Gran % (Auto) 0.3 Neut % (Auto) 73.7 H Lymph % (Auto) 13.2 L [place] % (Auto) 6.6 Eos % (Auto) 6.1 H Baso % (Auto) 0.1 L Lymph # (Auto) 1.04 [place] # (Auto) 0.5 Eos # (Auto) 0.5 H Baso # (Auto) 0.0 Abs Immat Gran (auto) 0.02 Absolute Neuts (auto) 5.8 Absolute Nucleated RBC 0.000 Nucleated RBC % 0.0 Sodium 136 L Potassium 4.4 Chloride 107 Carbon Dioxide 16 L Anion Gap 13 H BUN 34 H Creatinine 1.90 H Estim Creat Clear Calc 26 Estimated GFR 26 L Glucose 111 H POC Capillary Glucose 119 H Lactic Acid Calcium 9.5 Magnesium Total Bilirubin AST ALT Alkaline Phosphatase Troponin I Total Protein Albumin Lipase Procalcitonin Urine Color Dark yellow Urine Appearance Cloudy H Urine pH 5.5 Ur Specific [place] 1.011 Urine Protein 2+ H Urine Glucose (UA) Negative Urine Ketones Negative Ur Blood (Man) Negative Urine Nitrate Negative Urine Bilirubin Negative Urine Urobilinogen 0.2 Add Ur Microanalysis Reviewed Leukocyte Esterase Rfl Trace H Urine RBC 0-2 Urine WBC 6-10 H Ur Squamous Epith Cells Occasional Urine Bacteria None seen Urine Casts >20 Hyaline Casts Present Urine Mucus Present
[2024-01-10 16:33] LABS: Glucose Point of Care 146 mg/dl (65-105)
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
[2024-01-10 20:55] LABS: Glucose Point of Care 106 mg/dl (65-105)
[2024-01-11] VITALS (12 sets, daily range): BP systolic 96–130; BP diastolic 36–80; PULSE 66–82; RESP 16–17; TEMP 35.8–36.8; O2SAT 94–97
--- NOTE | 2024-01-11 | ECHO_ITS ---
Patient Info Name: Mariya Villanueva Age: 73 years : 1950 Gender: Female Ht: 64 in Wt: 184 lbs BSA: 1.97 m2 HR: 71 bpm BP: 96 / 36 mmHg Heart Rhythm: Sinus Rhythm Technical Quality: Good Exam Date: 01/11/2024 9:57 AM Exam Location: Echo Lab Patient Status: Inpatient Admit Date: 01/09/2024 Staff Ordering Physician: Arron Quiroz MD Post Closing Specialist: Mustapha Begum RDCS Attending Provider: Thania Bartholomew MD Exam Type: CA echo doppler color flow Study Info Indications - sob Complete two-dimensional, color flow and Doppler transthoracic echocardiogram is performed. Summary 1. Complete two-dimensional, color flow and Doppler transthoracic echocardiogram is performed. 2. Left ventricular chamber dimension is normal. 3. Left ventricular systolic function is normal, estimated at 60-65%. 4. The left ventricular diastolic function is abnormal. 5. E/e' 11 is mildly elevated. 6. There is mild mitral valve regurgitation. 7. There is trace tricuspid valve regurgitation. 8. No pulmonary hypertension, estimated pulmonary arterial systolic pressure is 25 mmHg. Left Ventricle E/e' 11 is mildly elevated. Left ventricular chamber dimension is normal. Left ventricular systolic function is normal, estimated at 60-65%. The left ventricular diastolic function is abnormal. Right Ventricle Right ventricular systolic function is normal and with normal TAPSE 2.4 cm. Right ventricular chamber dimension is normal. Left Atria Left atrial chamber dimension is normal. Right Atria Right atrial chamber dimension is normal. Aortic Valve The aortic valve is trileaflet. There is no aortic valve stenosis. There is no aortic valve regurgitation. Pulmonic Valve There is no pulmonic regurgitation. Mitral Valve There is no mitral valve stenosis. There is mild mitral valve regurgitation. Tricuspid Valve There is trace tricuspid valve regurgitation. No pulmonary hypertension, estimated pulmonary arterial systolic pressure is 25 mmHg. Pericardium/Pleural There is no pericardial effusion. Inferior Vena Cava Normal inferior vena cava with >50% collapse upon inspiration consistent with normal right atrial pressure, 5 mmHg. Aorta The aortic root size at the sinus of Valsalva is normal. Left Ventricular Outflow Tract Name Value Normal LVOT 2D LVOT Diameter 1.9 cm LVOT Doppler LVOT Peak Gradient 5 mmHg LVOT Mean Gradient 3 mmHg LVOT VTI 23 cm LVOT VTI/AV VTI Ratio 0.8 LVOT Stroke Volume 62 ml LVOT CO 4.4 l/min LVOT CI 2.2 l/min/m2 Pulmonic Valve Name Value Normal PV Doppler PV Peak Gradient 4 mmHg Mitral Valve Name Value Normal MV Doppler MV Decel [place] 485 cm/s2 MV PHT 63 ms MV Area (PHT) 3.5 cm2 4.0-5.0 MV Regurgitation Doppler MR Peak Gradient 92 mmHg MV Diastolic Function MV E Peak Velocity 106 cm/s MV A Peak Velocity 102 cm/s MV E/A 1.0 MV Decel Time 219 ms MV Annular TDI MV E/e' (Septal) 11.6 <=8.0 MV E/e' (Lateral) 11.2 <=8.0 MV E/e' (Average) 11.4 Tricuspid Valve Name Value Normal TV Regurgitation Doppler TR Peak Velocity 225 cm/s TR Peak Gradient 20 mmHg Estimated PAP/RSVP RA Pressure 5 mmHg <=5 PA Systolic Pressure 25 mmHg <36 RV Systolic Pressure 25 mmHg <36 Aortic Valve Name Value Normal AV Doppler AV Peak Velocity 141 cm/s AV Peak Gradient 8 mmHg AV Mean Gradient 5 mmHg AV VTI 30 cm AV Area (Cont Eq VTI) 2.1 cm2 >=3.0 AV Area (Cont Eq Dong) 2.2 cm2 AV Regurgitation 2D LVOT Area 2.7 cm2 Ventricles Name Value Normal LV Dimensions 2D/MM IVS Diastolic Thickness (2D) 1.0 cm 0.6-1.0 LVID Diastole (2D) 4.2 cm 3.8-5.2 LVIW Diastolic Thickness (2D) 1.0 cm 0.6-0.9 LVID Systole (2D) 2.7 cm 2.2-3.5 LVOT Diameter 1.9 cm LV Mass (2D Cubed) 137.81 g 67.00-162.00 LV Mass Index (2D Cubed) 70 g/m2 43-95 Relative Wall Thickness (2D) 0.47 LV Fractional Shortening/Ejection Fraction 2D/MM LV Fractional Shortening (2D) 36 % 27-45 LV EF (2D Teicholz) 66 % 54-74 LV Diastolic Volume (4C MOD) 93 ml LV EF (4C MOD) 67 % LV Diastolic Volume (2C MOD) 74 ml LV EF (2C MOD) 61 % LV Diastolic Volume (BP MOD) 87 ml 46-106 LV Diastolic Volume Index (BP MOD) 44 ml/m2 29-61 LV Systolic Volume (BP MOD) 31 ml 14-42 LV Systolic Volume Index (BP MOD) 16 ml/m2 8-24 LV EF (BP MOD) 64 % 54-74 LV Diastolic Length (4C) 7.7 cm LV Systolic Length (4C) 6.3 cm LV Stroke Volume (4C MOD) 62 ml Atria Name Value Normal LA Dimensions LA Volume (4C A-L) 25 ml LA Volume (BP A-L) 30 ml RA Dimensions RA Area (4C) 7.2 cm2 <=18.0 Report Signatures
--- NOTE | 2024-01-11 02:27 | PC.NURSE ---
Patient HR drops as low as 25 bpm intermittently but not sustaining. Patient asymptomatic and has CPAP in place. Pulse ox reads 96% and doesn't drop with HR. Dr. Bartholomew made aware with orders to monitor.
[2024-01-11] MEDS: SODIUM CHLORIDE 0.9% IV 1,000 ML 125 ML IV CONT ×3 (04:09→21:25)
[2024-01-11] MEDS: LEVOTHYROXINE SODIUM 50 MCG TABLET PO (06:09)
[2024-01-11 07:40] LABS: Basophils Percent Auto 0.2 % (0.2-1.2); Eosinophils Absolute Auto 0.4 K/mm3 (0-0.3); Eosinophils Percent Auto 9.1 % (0-4.4); Hematocrit 29.7 % (37.0-47.0); Hemoglobin 9.5 g/dL (12.0-15.0); Immature Granulocyte Absolute 0.01 K/mm3 (0.00-0.031); Immature Granulocyte Percent A 0.2 % (0-0.5); Lymphocytes Absolute Auto 0.82 K/mm3 (0.9-3.2); Lymphocytes Percent Auto 18.6 % (18.3-44.2); Mean Corpuscular Hemoglobin 29.2 pg (26-34); Mean Corpuscular Volume 91.4 fl (80-100); Mean Platelet Volume 10.7 fl (7.4-10.4); Monocytes Absolute Auto 0.4 K/mm3 (0.1-0.6); Monocytes Percent Auto 8.4 % (2.6-8.5); Neutrophils Absolute Auto 2.8 K/mm3 (1.3-6.7); Neutrophils Percent Auto 63.5 % (45.5-73.1); Platelet Count Result 180 k/mm3 (150-375); Red Blood Count 3.25 M/mm3 (4.2-5.4); White Blood Count 4.4 K/mm3 (4.5-10.0)
[2024-01-11 07:48] LABS: Alanine Aminotransferase 20 U/L (6-35); Albumin Level 3.5 g/dL (3.5-5.1); Alkaline Phosphatase 85 U/L (38-126); Anion Gap 11 mmol/L (4-12); Aspartate Amino Transferase 29 U/L (14-36); Bilirubin,Total 0.3 mg/dL (0.2-1.3); Blood Urea Nitrogen 25 mg/dL (7-17); Calcium 9.1 mg/dL (8.4-10.2); Carbon Dioxide 17 mmol/L (22-30); Chloride 110 mmol/L (98-107); Estimated CRCL calculation 40 ml/min; Estimated Glomerular Filt Rate 44; Glucose 102 mg/dL (65-110); Magnesium 1.5 mg/dL (1.6-2.3); Sodium 138 mmol/L (137-145)
[2024-01-11 08:07] LABS: Glucose Point of Care 100 mg/dl (65-105)
[2024-01-11] MEDS: MAGNESIUM OXIDE 400 MG TABLET PO ×2 (08:49→17:14)
[2024-01-11] MEDS: PANTOPRAZOLE 40 MG TABLET PO (08:49)
[2024-01-11] MEDS: PARoxetine 20 MG TABLET PO (08:49)
[2024-01-11] MEDS: CHOLESTYRAMINE LIGHT 4 GM POWD.PACK PO (10:45)
--- NOTE | 2024-01-11 11:07 | PC.NURSE ---
This patient, Mariya Villanueva, was transferred to Room 260 on 01/11/24 at 1107. Personal belongings sent with patient. Report given to Aguilar JUNIOR. Appropriate documentation sent with patient.
--- NOTE | 2024-01-11 12:00 | PC.NURSE ---
This patient, Mariya Villanueva, was received from IMU on 01/11/24 at 1110. Patient/family oriented to unit policies and routines
[2024-01-11 12:26] LABS: Glucose Point of Care 107 mg/dl (65-105)
[2024-01-11 16:38] LABS: Toxigenic C. Diff NEGATIVE (NEGATIVE)
--- NOTE | 2024-01-11 16:45 | PM.IMPN ---
Progress Note: A&P Assessment and Plan (1) Acute kidney injury superimposed on CKD: Code(s): N17.9 - Acute kidney failure, unspecified; N18.9 - Chronic kidney disease, unspecified Status: Resolved Assessment and Plan: Started on fluid Her baseline varies from 1.6 this April, 4.0 in May, 3.1 in June, 0.9 in July and September, 4.0 in November Creatinine level has several spikes But continued getting better Nephrology is consulted (2) Ileostomy in place: Code(s): Z93.2 - Ileostomy status Status: Chronic Assessment and Plan: Recent increase in output. Denies any blood in the stool. (3) Ulcerative colitis: Code(s): K51.90 - Ulcerative colitis, unspecified, without complications Status: Chronic Assessment and Plan: Status post total colectomy Consulted GI (4) Gastroesophageal reflux disease: Qualifiers: Esophagitis presence: without esophagitis Qualified Code(s): K21.9 - Gastro-esophageal reflux disease without esophagitis Code(s): K21.9 - Gastro-esophageal reflux disease without esophagitis Status: Acute (5) Type 2 diabetes mellitus: Code(s): E11.9 - Type 2 diabetes mellitus without complications Status: Acute Assessment and Plan: Holding metformin (6) Dehydration: Code(s): E86.0 - Dehydration Status: Acute Assessment and Plan: Secondary to increased ileostomy output Receiving NS (7) Obstructive sleep apnea on CPAP: Code(s): G47.33 - Obstructive sleep apnea (adult) (pediatric); Z99.89 - Dependence on other enabling machines and devices Status: Acute Assessment and Plan: CPAP at nighttime (8) Hyponatremia: Code(s): E87.1 - Hypo-osmolality and hyponatremia Status: Acute Assessment and Plan: Likely secondary to GI losses (9) Increased ileostomy output: Code(s): R19.8 - Other specified symptoms and signs involving the digestive system and abdomen; Z93.2 - Ileostomy status Status: Resolved Assessment and Plan: Receiving NS (10) UTI (urinary tract infection): Code(s): N39.0 - Urinary tract infection, site not specified Status: Acute Assessment and Plan: KENDELL Garcia Await cultures Subjective Date/time seen: 01/11/24 16:45 Interval history: patient is currently doing well. We will order stool culture, Elatase. will discontinue the antibiotic. Renal functions are getting better. Review of Systems Review of Systems: Increased ileostomy output, generalized weakness Exam Narrative: Patient is laying in a bed Const: General: comfortable, no acute distress, well developed, alert, awake, ill appearing, overweight and other (Generalized pallor) Nutritional Appearance: overweight Orientation/consciousness: patient oriented x3 HENMT: Head: normal to inspection, normocephalic and atraumatic Ears: hearing grossly normal bilaterally Face/Nose/Sinus: normal facial exam Face and sinus: normal facial exam Eyes: General: appearance normal, both eyes and all related structures Pupils: Equal, round and reactive pupils present EOM: EOMs intact bilaterally Neck: Neck: full ROM, no lymphadenopathy and no JVD Thyroid: thyroid normal Lymphatic: no lymphadenopathy noted Resp: Effort & Inspection: normal respiratory effort and able to speak in complete sentences Auscultation: clear to auscultation bilaterally Cardio: Jugular venous distension: no JVD Rate: regular rate Rhythm: regular rhythm Heart sounds: S1 normal heart sound present and S2 normal heart sound present GI: Inspection: other (Ileostomy in place) : General: Yes deferred Skin: Rashes: no rashes Wounds: no wounds Neuro: General: patient oriented x3 and CN's II-XI intact bilaterally Cranial nerves: Yes CN's II-XII intact bilaterally and Yes Equal, round and reactive pupils present Cognition (Neuro): normal cognition Speech: normal speech Gait exam (Neuro): Normal gait present Motor exam (neuro): 5/5 motor strength present throughout Extrem: General: normal to inspection, full ROM, no joint enlargement and no pedal edema Objective Data Vital Signs Vital Signs: Vital Signs - 24 hr 01/10/24 18:00 01/10/24 20:00 01/10/24 20:00 Temperature Pulse Rate 82 86 Respiratory Rate Blood Pressure Pulse Oximetry Oxygen Delivery Room Air 01/10/24 20:56 01/10/24 23:43 01/11/24 00:00 Temperature 97.5 F L 97.4 F L Pulse Rate 78 74 Respiratory Rate 16 16 Blood Pressure 108/42 L 115/39 L Pulse Oximetry 94 95 96 Oxygen Delivery CPAP 01/11/24 03:50 01/10/24 22:00 01/11/24 00:00 Temperature 98.3 F Pulse Rate 66 74 74 Respiratory Rate 16 Blood Pressure 96/36 L Pulse Oximetry 96 Oxygen Delivery 01/11/24 02:00 01/11/24 04:00 01/11/24 04:00 Temperature Pulse Rate 67 71 Respiratory Rate Blood Pressure Pulse Oximetry 96 Oxygen Delivery CPAP 01/11/24 06:00 01/11/24 08:00 01/11/24 08:50 Temperature Pulse Rate 66 Respiratory Rate Blood Pressure 118/80 Pulse Oximetry Oxygen Delivery Room Air 01/11/24 08:00 01/11/24 11:15 01/11/24 12:00 Temperature 96.4 F L Pulse Rate 66 67 77 Respiratory Rate 17 Blood Pressure 120/46 L Pulse Oximetry 97 Oxygen Delivery 01/11/24 16:00 Temperature Pulse Rate 67 Respiratory Rate Blood Pressure Pulse Oximetry Oxygen Delivery Intake/Output Intake/Output: Intake & Output 01/08/24 01/09/24 01/10/24 01/11/24 23:59 23:59 23:59 23:59 Intake Total 1999 4004.6 3948.8 Output Total 1927 300 Balance 1999 2077.6 3648.8 Meds/Results Medications: Active Medications Generic Name Dose Route Start Last Admin Trade Name Freq PRN Reason Stop Dose Admin Acetaminophen 650 mg 01/09/24 21:57 Acetaminophen 325 Mg Tablet PO Q4H PRN Mild Pain (1-3) or Fever Albuterol 1 puff 01/10/24 05:10 Albuterol Sulfate (*Sp) Aerosol 1 Puff INHALATION Q4HRT PRN shortness of breath or wheezing Cholestyramine Resin 4 gm 01/11/24 10:00 01/11/24 10:45 Cholestyramine Light 4 Gm Powd.Pack PO 4 gm QAM@1000 GAUTAM Administration Dextrose 12.5 gm 01/11/24 08:03 Dextrose 50% 25 Gm/50 Ml Syringe IV PUSH PRN PRN Hypoglycemia Protocol Diphenoxylate HCl/Atropine 1 tablet 01/10/24 17:10 Diphenoxylate/Atropine (*Crx) 2.5 Mg Tablet PO PRN PRN Diarrhea Fluticasone Propionate 2 spray 01/10/24 05:10 01/10/24 08:39 Fluticasone Propionate 0.05% Na Spr 16 Gm Btl (*Bkc) NASAL 2 spray DAILY PRN Administration nasal congestion Glucagon 1 mg 01/11/24 08:03 Glucagon For Inj 1 Mg Vial IM PRN PRN Hypoglycemia Protocol Glucose 15 gm 01/11/24 08:03 Glucose Oral Gel 15 Gm Of Glucse In 37.5 Gm Tube PO PRN PRN Hypoglycemia Protocol Sodium Chloride 1,000 mls @ 125 mls/hr 01/09/24 22:00 01/11/24 13:05 Normal Saline Iv IV CONT 125 mls/hr .Q8H GAUTAM Administration Dextrose 1,000 mls @ 100 mls/hr 01/11/24 08:03 Dextrose 5% 1,000 Ml IVPB PRN PRN Hypoglycemia Protocol Insulin Aspart 2 - 5 units 01/11/24 08:00 01/11/24 12:30 Insulin Aspart (*Bkc) 100 Units/Ml SUB-Q Not Given TIDWM GAUTAM Protocol Levothyroxine Sodium 50 mcg 01/10/24 06:30 01/11/24 06:09 Levothyroxine Sodium 50 Mcg Tablet PO 50 mcg DAILY@0630 GAUTAM Administration Magnesium Oxide 400 mg 01/10/24 09:00 01/11/24 08:49 Magnesium Oxide 400 Mg Tablet PO 400 mg BID GAUTAM Administration Ondansetron HCl 4 mg 01/09/24 21:57 Ondansetron Inj 4 Mg/2 Ml Vial IV PUSH Q4H PRN Nausea Pantoprazole Sodium 40 mg 01/10/24 09:00 01/11/24 08:49 Pantoprazole 40 Mg Tablet PO 02/09/24 08:59 40 mg DAILY GAUTAM Administration Paroxetine HCl 20 mg 01/10/24 09:00 01/11/24 08:49 Paroxetine 20 Mg Tablet PO 20 mg QAM GAUTAM Administration Perflutren Lipid Microsphere 0 ml 01/10/24 15:12 Perflutren Lipid Microspheres 1.5 Ml Vial Diluted To 10 Ml Total Volume IV PUSH 01/13/24 15:13 ONCE PRN adequate visualization Protocol Radiology Results: ITS Impressions Chest X-Ray 01/09/24 20:05 IMPRESSION: No acute cardiopulmonary pathology. Labs Labs: Laboratory Results - last 24 hr 01/10/24 01/11/24 01/11/24 20:37 05:00 08:04 WBC 4.4 L RBC 3.25 L Hgb 9.5 L Hct 29.7 L MCV 91.4 MCH 29.2 MCHC 32.0 RDW 14.0 Plt Count 180 MPV 10.7 H Immature Gran % (Auto) 0.2 Neut % (Auto) 63.5 Lymph % (Auto) 18.6 [place] % (Auto) 8.4 Eos % (Auto) 9.1 H Baso % (Auto) 0.2 Lymph # (Auto) 0.82 L [place] # (Auto) 0.4 Eos # (Auto) 0.4 H Baso # (Auto) 0.0 Abs Immat Gran (auto) 0.01 Absolute Neuts (auto) 2.8 Absolute Nucleated RBC 0.000 Nucleated RBC % 0.0 Sodium 138 Potassium 4.0 Chloride 110 H Carbon Dioxide 17 L Anion Gap 11 BUN 25 H Creatinine 1.20 H Estim Creat Clear Calc 40 Estimated GFR 44 L Glucose 102 POC Capillary Glucose 106 H 100 Calcium 9.1 Magnesium 1.5 L Total Bilirubin 0.3 AST 29 ALT 20 Alkaline Phosphatase 85 Total Protein 6.0 L Albumin 3.5 C. difficile (PCR) 01/11/24 01/11/24 12:22 12:32 WBC RBC Hgb Hct MCV MCH MCHC RDW Plt Count MPV Immature Gran % (Auto) Neut % (Auto) Lymph % (Auto) [place] % (Auto) Eos % (Auto) Baso % (Auto) Lymph # (Auto) [place] # (Auto) Eos # (Auto) Baso # (Auto) Abs Immat Gran (auto) Absolute Neuts (auto) Absolute Nucleated RBC Nucleated RBC % Sodium Potassium Chloride Carbon Dioxide Anion Gap BUN Creatinine Estim Creat Clear Calc Estimated GFR Glucose POC Capillary Glucose 107 H Calcium Magnesium Total Bilirubin AST ALT Alkaline Phosphatase Total Protein Albumin C. difficile (PCR) Negative Hospitalist MIPS Advance Care Plan I have confirmed that the patient's Advanced Care Plan is present, code status is documented, or surrogate decision maker is listed in patient medical record.: Yes Medication Reconciliation I have utilized all available resources to obtain, update and review the patients current medications (includes all prescriptions, OTC, herbals, cannabis, and nutritional supplements).: Yes
[2024-01-11 17:11] LABS: Glucose Point of Care 86 mg/dl (65-105)
--- NOTE | 2024-01-11 17:20 | WPDGIPROGNO ---
Progress Note: A&P Assessment and Plan (1) Increased ileostomy output: Code(s): R19.8 - Other specified symptoms and signs involving the digestive system and abdomen; Z93.2 - Ileostomy status Status: Resolved Assessment and Plan: started on questran daily lomotil as needed better dehydration/ankur resolved stool negative for infection home soon (2) Dehydration: Code(s): E86.0 - Dehydration Status: Acute Assessment and Plan: resolved (3) Acute kidney injury superimposed on CKD: Code(s): N17.9 - Acute kidney failure, unspecified; N18.9 - Chronic kidney disease, unspecified Status: Resolved Assessment and Plan: back to baseline (4) Diarrhea: Code(s): R19.7 - Diarrhea, unspecified Status: Acute Subjective Date/time seen: 01/11/24 17:20 Interval history: better today, less output Review of Systems Review of Systems: All systems reviewed & are unremarkable except as noted in HPI and below Exam Const: General: comfortable and no acute distress HENMT: Face/Nose/Sinus: Normal nares present Eyes: General: appearance normal, both eyes and all related structures Neck: Neck: no JVD Resp: Auscultation: clear to auscultation bilaterally Cardio: Rate: regular rate Rhythm: regular rhythm GI: Inspection: non-distended GI Palp: Yes Soft to palpation and No Tenderness to palpation present (GI) Auscultation: normal bowel sounds Other: ileostomy bag Skin: General skin exam: normal color Neuro: Speech: normal speech Motor exam (neuro): 5/5 motor strength present throughout Extrem: General: normal to inspection Psych: Mental Status: mental status grossly normal Objective Data Vital Signs Vital Signs: Vital Signs - 24 hr 01/10/24 18:00 01/10/24 20:00 01/10/24 20:00 Temperature Pulse Rate 82 86 Respiratory Rate Blood Pressure Pulse Oximetry Oxygen Delivery Room Air 01/10/24 20:56 01/10/24 23:43 01/11/24 00:00 Temperature 97.5 F L 97.4 F L Pulse Rate 78 74 Respiratory Rate 16 16 Blood Pressure 108/42 L 115/39 L Pulse Oximetry 94 95 96 Oxygen Delivery CPAP 01/11/24 03:50 01/10/24 22:00 01/11/24 00:00 Temperature 98.3 F Pulse Rate 66 74 74 Respiratory Rate 16 Blood Pressure 96/36 L Pulse Oximetry 96 Oxygen Delivery 01/11/24 02:00 01/11/24 04:00 01/11/24 04:00 Temperature Pulse Rate 67 71 Respiratory Rate Blood Pressure Pulse Oximetry 96 Oxygen Delivery CPAP 01/11/24 06:00 01/11/24 08:00 01/11/24 08:50 Temperature Pulse Rate 66 Respiratory Rate Blood Pressure 118/80 Pulse Oximetry Oxygen Delivery Room Air 01/11/24 08:00 01/11/24 11:15 01/11/24 12:00 Temperature 96.4 F L Pulse Rate 66 67 77 Respiratory Rate 17 Blood Pressure 120/46 L Pulse Oximetry 97 Oxygen Delivery 01/11/24 16:00 01/11/24 16:56 Temperature 97.5 F L Pulse Rate 67 72 Respiratory Rate 17 Blood Pressure 121/49 L Pulse Oximetry 94 Oxygen Delivery Intake/Output Intake/Output: Intake & Output 01/08/24 01/09/24 01/10/24 01/11/24 23:59 23:59 23:59 23:59 Intake Total 1999 4004.6 3948.8 Output Total 1927 300 Balance 1999 2077.6 3648.8 Meds/Results Medications: Active Medications Generic Name Dose Route Start Last Admin Trade Name Freq PRN Reason Stop Dose Admin Acetaminophen 650 mg 01/09/24 21:57 Acetaminophen 325 Mg Tablet PO Q4H PRN Mild Pain (1-3) or Fever Albuterol 1 puff 01/10/24 05:10 Albuterol Sulfate (*Sp) Aerosol 1 Puff INHALATION Q4HRT PRN shortness of breath or wheezing Cholestyramine Resin 4 gm 01/11/24 10:00 01/11/24 10:45 Cholestyramine Light 4 Gm Powd.Pack PO 4 gm QAM@1000 GAUTAM Administration Dextrose 12.5 gm 01/11/24 08:03 Dextrose 50% 25 Gm/50 Ml Syringe IV PUSH PRN PRN Hypoglycemia Protocol Diphenoxylate HCl/Atropine 1 tablet 01/10/24 17:10 Diphenoxylate/Atropine (*Crx) 2.5 Mg Tablet PO PRN PRN Diarrhea Fluticasone Propionate 2 spray 01/10/24 05:10 01/10/24 08:39 Fluticasone Propionate 0.05% Na Spr 16 Gm Btl (*Bkc) NASAL 2 spray DAILY PRN Administration nasal congestion Glucagon 1 mg 01/11/24 08:03 Glucagon For Inj 1 Mg Vial IM PRN PRN Hypoglycemia Protocol Glucose 15 gm 01/11/24 08:03 Glucose Oral Gel 15 Gm Of Glucse In 37.5 Gm Tube PO PRN PRN Hypoglycemia Protocol Sodium Chloride 1,000 mls @ 125 mls/hr 01/09/24 22:00 01/11/24 13:05 Normal Saline Iv IV CONT 125 mls/hr .Q8H GAUTAM Administration Dextrose 1,000 mls @ 100 mls/hr 01/11/24 08:03 Dextrose 5% 1,000 Ml IVPB PRN PRN Hypoglycemia Protocol Insulin Aspart 2 - 5 units 01/11/24 08:00 01/11/24 17:15 Insulin Aspart (*Bkc) 100 Units/Ml SUB-Q Not Given TIDWM GAUTAM Protocol Levothyroxine Sodium 50 mcg 01/10/24 06:30 01/11/24 06:09 Levothyroxine Sodium 50 Mcg Tablet PO 50 mcg DAILY@0630 GAUTAM Administration Magnesium Oxide 400 mg 01/10/24 09:00 01/11/24 17:14 Magnesium Oxide 400 Mg Tablet PO 400 mg BID GAUTAM Administration Ondansetron HCl 4 mg 01/09/24 21:57 Ondansetron Inj 4 Mg/2 Ml Vial IV PUSH Q4H PRN Nausea Pantoprazole Sodium 40 mg 01/10/24 09:00 01/11/24 08:49 Pantoprazole 40 Mg Tablet PO 02/09/24 08:59 40 mg DAILY GAUTAM Administration Paroxetine HCl 20 mg 01/10/24 09:00 01/11/24 08:49 Paroxetine 20 Mg Tablet PO 20 mg QAM GAUTAM Administration Perflutren Lipid Microsphere 0 ml 01/10/24 15:12 Perflutren Lipid Microspheres 1.5 Ml Vial Diluted To 10 Ml Total Volume IV PUSH 01/13/24 15:13 ONCE PRN adequate visualization Protocol Radiology Results: ITS Impressions Chest X-Ray 01/09/24 20:05 IMPRESSION: No acute cardiopulmonary pathology. Labs Labs: Laboratory Results - last 24 hr 01/10/24 01/11/24 01/11/24 20:37 05:00 08:04 WBC 4.4 L RBC 3.25 L Hgb 9.5 L Hct 29.7 L MCV 91.4 MCH 29.2 MCHC 32.0 RDW 14.0 Plt Count 180 MPV 10.7 H Immature Gran % (Auto) 0.2 Neut % (Auto) 63.5 Lymph % (Auto) 18.6 [place] % (Auto) 8.4 Eos % (Auto) 9.1 H Baso % (Auto) 0.2 Lymph # (Auto) 0.82 L [place] # (Auto) 0.4 Eos # (Auto) 0.4 H Baso # (Auto) 0.0 Abs Immat Gran (auto) 0.01 Absolute Neuts (auto) 2.8 Absolute Nucleated RBC 0.000 Nucleated RBC % 0.0 Sodium 138 Potassium 4.0 Chloride 110 H Carbon Dioxide 17 L Anion Gap 11 BUN 25 H Creatinine 1.20 H Estim Creat Clear Calc 40 Estimated GFR 44 L Glucose 102 POC Capillary Glucose 106 H 100 Calcium 9.1 Magnesium 1.5 L Total Bilirubin 0.3 AST 29 ALT 20 Alkaline Phosphatase 85 Total Protein 6.0 L Albumin 3.5 C. difficile (PCR) 01/11/24 01/11/24 01/11/24 12:22 12:32 17:00 WBC RBC Hgb Hct MCV MCH MCHC RDW Plt Count MPV Immature Gran % (Auto) Neut % (Auto) Lymph % (Auto) [place] % (Auto) Eos % (Auto) Baso % (Auto) Lymph # (Auto) [place] # (Auto) Eos # (Auto) Baso # (Auto) Abs Immat Gran (auto) Absolute Neuts (auto) Absolute Nucleated RBC Nucleated RBC % Sodium Potassium Chloride Carbon Dioxide Anion Gap BUN Creatinine Estim Creat Clear Calc Estimated GFR Glucose POC Capillary Glucose 107 H 86 Calcium Magnesium Total Bilirubin AST ALT Alkaline Phosphatase Total Protein Albumin C. difficile (PCR) Negative
[2024-01-11] MEDS: diphenhydrAMINE HCl CAP 25 MG CAPSULE PO (18:14)
[2024-01-11 21:12] LABS: Glucose Point of Care 135 mg/dl (65-105)
[2024-01-12] VITALS (9 sets, daily range): BP systolic 109–131; BP diastolic 41–59; PULSE 59–79; RESP 16–20; TEMP 36.1–36.6; O2SAT 96–98
[2024-01-12] MEDS: SODIUM CHLORIDE 0.9% IV 1,000 ML 125 ML IV CONT ×3 (05:14→23:01)
[2024-01-12] MEDS: LEVOTHYROXINE SODIUM 50 MCG TABLET PO (05:15)
[2024-01-12 05:42] LABS: Hematocrit 28.5 % (37.0-47.0); Hemoglobin 9.3 g/dL (12.0-15.0); Mean Corpuscular HGB Conc 32.6 g/dl (32-36); Mean Corpuscular Hemoglobin 29.4 pg (26-34); Mean Corpuscular Volume 90.2 fl (80-100); Platelet Count Result 186 k/mm3 (150-375); Red Blood Count 3.16 M/mm3 (4.2-5.4); White Blood Count 3.3 K/mm3 (4.5-10.0)
[2024-01-12 05:56] LABS: Alanine Aminotransferase 18 U/L (6-35); Albumin Level 3.5 g/dL (3.5-5.1); Alkaline Phosphatase 85 U/L (38-126); Anion Gap 10 mmol/L (4-12); Aspartate Amino Transferase 27 U/L (14-36); Bilirubin,Total 0.2 mg/dL (0.2-1.3); Blood Urea Nitrogen 14 mg/dL (7-17); Carbon Dioxide 19 mmol/L (22-30); Chloride 111 mmol/L (98-107); Estimated CRCL calculation 44 ml/min; Estimated Glomerular Filt Rate 49; Glucose 99 mg/dL (65-110); Potassium 3.6 mmol/L (3.4-5.0); Sodium 140 mmol/L (137-145)
[2024-01-12 08:10] LABS: Glucose Point of Care 96 mg/dl (65-105)
[2024-01-12] MEDS: PARoxetine 20 MG TABLET PO (08:52)
[2024-01-12] MEDS: PANTOPRAZOLE 40 MG TABLET PO (08:52)
[2024-01-12] MEDS: MAGNESIUM OXIDE 400 MG TABLET PO ×2 (08:52→18:12)
[2024-01-12] MEDS: CHOLESTYRAMINE LIGHT 4 GM POWD.PACK PO (10:23)
[2024-01-12] MEDS: diphenhydrAMINE HCl CAP 25 MG CAPSULE PO ×2 (10:26→20:52)
[2024-01-12 12:07] LABS: Glucose Point of Care 88 mg/dl (65-105)
--- NOTE | 2024-01-12 13:04 | PM.IMPN ---
Progress Note: A&P Assessment and Plan (1) Acute kidney injury superimposed on CKD: Code(s): N17.9 - Acute kidney failure, unspecified; N18.9 - Chronic kidney disease, unspecified Status: Resolved Assessment and Plan: Started on fluid Her baseline varies from 1.6 this April, 4.0 in May, 3.1 in June, 0.9 in July and September, 4.0 in November Creatinine level has several spikes But continued getting better Nephrology is consulted (2) Ileostomy in place: Code(s): Z93.2 - Ileostomy status Status: Chronic Assessment and Plan: Recent increase in output. Denies any blood in the stool. started on questran daily lomotil as needed (3) Ulcerative colitis: Code(s): K51.90 - Ulcerative colitis, unspecified, without complications Status: Chronic Assessment and Plan: Status post total colectomy Consulted GI (4) Gastroesophageal reflux disease: Qualifiers: Esophagitis presence: without esophagitis Qualified Code(s): K21.9 - Gastro-esophageal reflux disease without esophagitis Code(s): K21.9 - Gastro-esophageal reflux disease without esophagitis Status: Acute (5) Type 2 diabetes mellitus: Code(s): E11.9 - Type 2 diabetes mellitus without complications Status: Acute Assessment and Plan: Holding metformin (6) Dehydration: Code(s): E86.0 - Dehydration Status: Acute Assessment and Plan: Secondary to increased ileostomy output Receiving NS (7) Obstructive sleep apnea on CPAP: Code(s): G47.33 - Obstructive sleep apnea (adult) (pediatric); Z99.89 - Dependence on other enabling machines and devices Status: Acute Assessment and Plan: CPAP at nighttime (8) Hyponatremia: Code(s): E87.1 - Hypo-osmolality and hyponatremia Status: Acute Assessment and Plan: Likely secondary to GI losses (9) Increased ileostomy output: Code(s): R19.8 - Other specified symptoms and signs involving the digestive system and abdomen; Z93.2 - Ileostomy status Status: Resolved Assessment and Plan: Receiving NS (10) UTI (urinary tract infection): Code(s): N39.0 - Urinary tract infection, site not specified Status: Acute Assessment and Plan: [facility] [place] cultures Subjective Date/time seen: 09/14/24 13:04 Interval history: Started on questran.Stool Pancreatic elastase pending. Stool output still has been increased and had placed at the the nursing team to give Lomotil as needed. No reports of hypertension. Diet has been changed to regular. Creatinine continues to improve. Review of Systems Review of Systems: Increased ileostomy output, generalized weakness Exam Narrative: Patient is laying in a bed Const: General: comfortable, no acute distress, well developed, alert, awake, ill appearing, overweight and other (Generalized pallor) Nutritional Appearance: overweight Orientation/consciousness: patient oriented x3 HENMT: Head: normal to inspection, normocephalic and atraumatic Ears: hearing grossly normal bilaterally Face/Nose/Sinus: normal facial exam Face and sinus: normal facial exam Eyes: General: appearance normal, both eyes and all related structures Pupils: Equal, round and reactive pupils present EOM: EOMs intact bilaterally Neck: Neck: full ROM, no lymphadenopathy and no JVD Thyroid: thyroid normal Lymphatic: no lymphadenopathy noted Resp: Effort & Inspection: normal respiratory effort and able to speak in complete sentences Auscultation: clear to auscultation bilaterally Cardio: Jugular venous distension: no JVD Rate: regular rate Rhythm: regular rhythm Heart sounds: S1 normal heart sound present and S2 normal heart sound present GI: Inspection: other (Ileostomy in place) : General: Yes deferred Skin: Rashes: no rashes Wounds: no wounds Neuro: General: patient oriented x3 and CN's II-XI intact bilaterally Cranial nerves: Yes CN's II-XII intact bilaterally and Yes Equal, round and reactive pupils present Cognition (Neuro): normal cognition Speech: normal speech Gait exam (Neuro): Normal gait present Motor exam (neuro): 5/5 motor strength present throughout Extrem: General: normal to inspection, full ROM, no joint enlargement and no pedal edema Objective Data Vital Signs Vital Signs: Vital Signs - 24 hr 01/11/24 16:00 01/11/24 16:56 01/11/24 20:01 Temperature 97.5 F L 97 F L Pulse Rate 67 72 72 Respiratory Rate 17 16 Blood Pressure 121/49 L 130/50 L Pulse Oximetry 94 94 Oxygen Delivery 01/12/24 00:12 01/11/24 20:00 01/12/24 00:00 Temperature 97.5 F L Pulse Rate 64 82 68 Respiratory Rate 16 Blood Pressure 115/52 L Pulse Oximetry 98 Oxygen Delivery 01/11/24 21:23 01/12/24 05:09 01/12/24 04:00 Temperature 97.6 F Pulse Rate 66 59 L Respiratory Rate 16 Blood Pressure 109/41 L Pulse Oximetry 98 Oxygen Delivery Room Air 01/12/24 11:55 Temperature 97.7 F Pulse Rate 67 Respiratory Rate 20 Blood Pressure 131/51 L Pulse Oximetry 96 Oxygen Delivery Intake/Output Intake/Output: Intake & Output 01/09/24 01/10/24 01/11/24 01/12/24 23:59 23:59 23:59 23:59 Intake Total 1999 4004.6 6370.8 1567.1 Output Total 1927 550 Balance 1999 2077.6 5820.8 1567.1 Meds/Results Medications: Active Medications Generic Name Dose Route Start Last Admin Trade Name Freq PRN Reason Stop Dose Admin Acetaminophen 650 mg 01/09/24 21:57 Acetaminophen 325 Mg Tablet PO Q4H PRN Mild Pain (1-3) or Fever Albuterol 1 puff 01/10/24 05:10 Albuterol Sulfate (*Sp) Aerosol 1 Puff INHALATION Q4HRT PRN shortness of breath or wheezing Cholestyramine Resin 4 gm 01/11/24 10:00 01/12/24 10:23 Cholestyramine Light 4 Gm Powd.Pack PO 4 gm QAM@1000 GAUTAM Administration Dextrose 12.5 gm 01/11/24 08:03 Dextrose 50% 25 Gm/50 Ml Syringe IV PUSH PRN PRN Hypoglycemia Protocol Diphenhydramine HCl 25 mg 01/11/24 18:03 01/12/24 10:26 Diphenhydramine Hcl Cap 25 Mg Capsule PO 25 mg Q6H PRN Administration Itching Diphenoxylate HCl/Atropine 1 tablet 01/10/24 17:10 Diphenoxylate/Atropine (*Crx) 2.5 Mg Tablet PO PRN PRN Diarrhea Fluticasone Propionate 2 spray 01/10/24 05:10 01/10/24 08:39 Fluticasone Propionate 0.05% Na Spr 16 Gm Btl (*Bkc) NASAL 2 spray DAILY PRN Administration nasal congestion Glucagon 1 mg 01/11/24 08:03 Glucagon For Inj 1 Mg Vial IM PRN PRN Hypoglycemia Protocol Glucose 15 gm 01/11/24 08:03 Glucose Oral Gel 15 Gm Of Glucse In 37.5 Gm Tube PO PRN PRN Hypoglycemia Protocol Sodium Chloride 1,000 mls @ 125 mls/hr 01/09/24 22:00 01/12/24 05:14 Normal Saline Iv IV CONT 125 mls/hr .Q8H GAUTAM Administration Dextrose 1,000 mls @ 100 mls/hr 01/11/24 08:03 Dextrose 5% 1,000 Ml IVPB PRN PRN Hypoglycemia Protocol Insulin Aspart 2 - 5 units 01/11/24 08:00 01/12/24 12:43 Insulin Aspart (*Bkc) 100 Units/Ml SUB-Q Not Given TIDWM GAUTAM Protocol Levothyroxine Sodium 50 mcg 01/10/24 06:30 01/12/24 05:15 Levothyroxine Sodium 50 Mcg Tablet PO 50 mcg DAILY@0630 GAUTAM Administration Magnesium Oxide 400 mg 01/10/24 09:00 01/12/24 08:52 Magnesium Oxide 400 Mg Tablet PO 400 mg BID GAUTAM Administration Ondansetron HCl 4 mg 01/09/24 21:57 Ondansetron Inj 4 Mg/2 Ml Vial IV PUSH Q4H PRN Nausea Pantoprazole Sodium 40 mg 01/10/24 09:00 01/12/24 08:52 Pantoprazole 40 Mg Tablet PO 02/09/24 08:59 40 mg DAILY GAUTAM Administration Paroxetine HCl 20 mg 01/10/24 09:00 01/12/24 08:52 Paroxetine 20 Mg Tablet PO 20 mg QAM GAUTAM Administration Perflutren Lipid Microsphere 0 ml 01/10/24 15:12 Perflutren Lipid Microspheres 1.5 Ml Vial Diluted To 10 Ml Total Volume IV PUSH 01/13/24 15:13 ONCE PRN adequate visualization Protocol Radiology Results: ITS Impressions Chest X-Ray 01/09/24 20:05 IMPRESSION: No acute cardiopulmonary pathology. Labs Labs: Laboratory Results - last 24 hr 01/11/24 01/11/24 01/11/24 12:32 17:00 20:08 WBC RBC Hgb Hct MCV MCH MCHC RDW Plt Count MPV Sodium Potassium Chloride Carbon Dioxide Anion Gap BUN Creatinine Estim Creat Clear Calc Estimated GFR Glucose POC Capillary Glucose 86 135 H Calcium Total Bilirubin AST ALT Alkaline Phosphatase Total Protein Albumin C. difficile (PCR) Negative 01/12/24 01/12/24 01/12/24 05:03 08:00 11:59 WBC 3.3 L RBC 3.16 L Hgb 9.3 L Hct 28.5 L MCV 90.2 MCH 29.4 MCHC 32.6 RDW 14.0 Plt Count 186 MPV 10.0 Sodium 140 Potassium 3.6 Chloride 111 H Carbon Dioxide 19 L Anion Gap 10 BUN 14 D Creatinine 1.10 H Estim Creat Clear Calc 44 Estimated GFR 49 L Glucose 99 POC Capillary Glucose 96 88 Calcium 9.0 Total Bilirubin 0.2 AST 27 ALT 18 Alkaline Phosphatase 85 Total Protein 6.0 L Albumin 3.5 C. difficile (PCR) Hospitalist [facility] Advance Care Plan I have confirmed that the patient's Advanced Care Plan is present, code status is documented, or surrogate decision maker is listed in patient medical record.: Yes Medication Reconciliation I have utilized all available resources to obtain, update and review the patients current medications (includes all prescriptions, OTC, herbals, cannabis, and nutritional supplements).: Yes
[2024-01-12] MEDS: DIPHENOXYLATE/ATROPINE (*CRX) 2.5 MG TABLET 1 TABLET PO ×2 (14:21→20:52)
--- NOTE | 2024-01-12 14:42 | WPDGIPROGNO ---
Progress Note: A&P Assessment and Plan (1) Increased ileostomy output: Code(s): R19.8 - Other specified symptoms and signs involving the digestive system and abdomen; Z93.2 - Ileostomy status Status: Resolved Assessment and Plan: started on questran daily lomotil as needed if still more than normal output dehydration/ankur resolved, creatinine down to 1.1 stool negative for infection pending serology for celiac and pancreatic elastase stool (2) Dehydration: Code(s): E86.0 - Dehydration Status: Acute Assessment and Plan: resolved (3) Acute kidney injury superimposed on CKD: Code(s): N17.9 - Acute kidney failure, unspecified; N18.9 - Chronic kidney disease, unspecified Status: Resolved Assessment and Plan: back to baseline (4) Diarrhea: Code(s): R19.7 - Diarrhea, unspecified Status: Acute Subjective Date/time seen: 01/12/24 14:42 Interval history: no major changes diet advanced to regular Review of Systems Review of Systems: All systems reviewed & are unremarkable except as noted in HPI and below Exam Const: General: comfortable and no acute distress HENMT: Face/Nose/Sinus: Normal nares present Eyes: General: appearance normal, both eyes and all related structures Neck: Neck: no JVD Resp: Auscultation: clear to auscultation bilaterally Cardio: Rate: regular rate Rhythm: regular rhythm GI: Inspection: non-distended GI Palp: Yes Soft to palpation and No Tenderness to palpation present (GI) Auscultation: normal bowel sounds Other: ileostomy bag Skin: General skin exam: normal color Neuro: Speech: normal speech Motor exam (neuro): 5/5 motor strength present throughout Extrem: General: normal to inspection Psych: Mental Status: mental status grossly normal Objective Data Vital Signs Vital Signs: Vital Signs - 24 hr 01/11/24 16:00 01/11/24 16:56 01/11/24 20:01 Temperature 97.5 F L 97 F L Pulse Rate 67 72 72 Respiratory Rate 17 16 Blood Pressure 121/49 L 130/50 L Pulse Oximetry 94 94 Oxygen Delivery 01/12/24 00:12 01/11/24 20:00 01/12/24 00:00 Temperature 97.5 F L Pulse Rate 64 82 68 Respiratory Rate 16 Blood Pressure 115/52 L Pulse Oximetry 98 Oxygen Delivery 01/11/24 21:23 01/12/24 05:09 01/12/24 04:00 Temperature 97.6 F Pulse Rate 66 59 L Respiratory Rate 16 Blood Pressure 109/41 L Pulse Oximetry 98 Oxygen Delivery Room Air 01/12/24 11:55 Temperature 97.7 F Pulse Rate 67 Respiratory Rate 20 Blood Pressure 131/51 L Pulse Oximetry 96 Oxygen Delivery Intake/Output Intake/Output: Intake & Output 01/09/24 01/10/24 01/11/24 01/12/24 23:59 23:59 23:59 23:59 Intake Total 1999 4004.6 6370.8 2807.1 Output Total 1927 550 Balance 1999 2077.6 5820.8 2807.1 Meds/Results Medications: Active Medications Generic Name Dose Route Start Last Admin Trade Name Freq PRN Reason Stop Dose Admin Acetaminophen 650 mg 01/09/24 21:57 Acetaminophen 325 Mg Tablet PO Q4H PRN Mild Pain (1-3) or Fever Albuterol 1 puff 01/10/24 05:10 Albuterol Sulfate (*Sp) Aerosol 1 Puff INHALATION Q4HRT PRN shortness of breath or wheezing Cholestyramine Resin 4 gm 01/11/24 10:00 01/12/24 10:23 Cholestyramine Light 4 Gm Powd.Pack PO 4 gm QAM@1000 GAUTAM Administration Dextrose 12.5 gm 01/11/24 08:03 Dextrose 50% 25 Gm/50 Ml Syringe IV PUSH PRN PRN Hypoglycemia Protocol Diphenhydramine HCl 25 mg 01/11/24 18:03 01/12/24 10:26 Diphenhydramine Hcl Cap 25 Mg Capsule PO 25 mg Q6H PRN Administration Itching Diphenoxylate HCl/Atropine 1 tablet 01/10/24 17:10 01/12/24 14:21 Diphenoxylate/Atropine (*Crx) 2.5 Mg Tablet PO 1 tablet PRN PRN Administration Diarrhea Fluticasone Propionate 2 spray 01/10/24 05:10 01/10/24 08:39 Fluticasone Propionate 0.05% Na Spr 16 Gm Btl (*Bkc) NASAL 2 spray DAILY PRN Administration nasal congestion Glucagon 1 mg 01/11/24 08:03 Glucagon For Inj 1 Mg Vial IM PRN PRN Hypoglycemia Protocol Glucose 15 gm 01/11/24 08:03 Glucose Oral Gel 15 Gm Of Glucse In 37.5 Gm Tube PO PRN PRN Hypoglycemia Protocol Sodium Chloride 1,000 mls @ 125 mls/hr 01/09/24 22:00 01/12/24 14:21 Normal Saline Iv IV CONT 125 mls/hr .Q8H GAUTAM Administration Dextrose 1,000 mls @ 100 mls/hr 01/11/24 08:03 Dextrose 5% 1,000 Ml IVPB PRN PRN Hypoglycemia Protocol Insulin Aspart 2 - 5 units 01/11/24 08:00 01/12/24 12:43 Insulin Aspart (*Bkc) 100 Units/Ml SUB-Q Not Given TIDWM GAUTAM Protocol Levothyroxine Sodium 50 mcg 01/10/24 06:30 01/12/24 05:15 Levothyroxine Sodium 50 Mcg Tablet PO 50 mcg DAILY@0630 GAUTAM Administration Magnesium Oxide 400 mg 01/10/24 09:00 01/12/24 08:52 Magnesium Oxide 400 Mg Tablet PO 400 mg BID GAUTAM Administration Ondansetron HCl 4 mg 01/09/24 21:57 Ondansetron Inj 4 Mg/2 Ml Vial IV PUSH Q4H PRN Nausea Pantoprazole Sodium 40 mg 01/10/24 09:00 01/12/24 08:52 Pantoprazole 40 Mg Tablet PO 02/09/24 08:59 40 mg DAILY GAUTAM Administration Paroxetine HCl 20 mg 01/10/24 09:00 01/12/24 08:52 Paroxetine 20 Mg Tablet PO 20 mg QAM GAUTAM Administration Perflutren Lipid Microsphere 0 ml 01/10/24 15:12 Perflutren Lipid Microspheres 1.5 Ml Vial Diluted To 10 Ml Total Volume IV PUSH 01/13/24 15:13 ONCE PRN adequate visualization Protocol Radiology Results: ITS Impressions Chest X-Ray 01/09/24 20:05 IMPRESSION: No acute cardiopulmonary pathology. Labs Labs: Laboratory Results - last 24 hr 01/11/24 01/11/24 01/11/24 12:32 17:00 20:08 WBC RBC Hgb Hct MCV MCH MCHC RDW Plt Count MPV Sodium Potassium Chloride Carbon Dioxide Anion Gap BUN Creatinine Estim Creat Clear Calc Estimated GFR Glucose POC Capillary Glucose 86 135 H Calcium Total Bilirubin AST ALT Alkaline Phosphatase Total Protein Albumin C. difficile (PCR) Negative 01/12/24 01/12/24 01/12/24 05:03 08:00 11:59 WBC 3.3 L RBC 3.16 L Hgb 9.3 L Hct 28.5 L MCV 90.2 MCH 29.4 MCHC 32.6 RDW 14.0 Plt Count 186 MPV 10.0 Sodium 140 Potassium 3.6 Chloride 111 H Carbon Dioxide 19 L Anion Gap 10 BUN 14 D Creatinine 1.10 H Estim Creat Clear Calc 44 Estimated GFR 49 L Glucose 99 POC Capillary Glucose 96 88 Calcium 9.0 Total Bilirubin 0.2 AST 27 ALT 18 Alkaline Phosphatase 85 Total Protein 6.0 L Albumin 3.5 C. difficile (PCR)
[2024-01-12 16:49] LABS: Glucose Point of Care 101 mg/dl (65-105)
[2024-01-12 20:46] LABS: Glucose Point of Care 133 mg/dl (65-105)
[2024-01-13 00:16] VITALS: BP 115/45; PULSE 65; RESP 14; TEMP 36.4; O2SAT 99
[2024-01-13 00:18] VITALS: BMI 32.8
[2024-01-13 05:25] LABS: Hemoglobin 8.5 g/dL (12.0-15.0); Mean Corpuscular HGB Conc 31.5 g/dl (32-36); Mean Corpuscular Hemoglobin 28.4 pg (26-34); Mean Corpuscular Volume 90.3 fl (80-100); Mean Platelet Volume 9.8 fl (7.4-10.4); Platelet Count Result 184 k/mm3 (150-375); Red Blood Count 2.99 M/mm3 (4.2-5.4); White Blood Count 3.8 K/mm3 (4.5-10.0)
[2024-01-13 05:37] LABS: Alanine Aminotransferase 16 U/L (6-35); Albumin Level 3.1 g/dL (3.5-5.1); Alkaline Phosphatase 78 U/L (38-126); Anion Gap 8 mmol/L (4-12); Aspartate Amino Transferase 28 U/L (14-36); Bilirubin,Total 0.1 mg/dL (0.2-1.3); Blood Urea Nitrogen 11 mg/dL (7-17); Calcium 8.6 mg/dL (8.4-10.2); Carbon Dioxide 18 mmol/L (22-30); Chloride 113 mmol/L (98-107); Estimated CRCL calculation 49 ml/min; Estimated Glomerular Filt Rate 55; Glucose 88 mg/dL (65-110); Potassium 3.5 mmol/L (3.4-5.0); Sodium 139 mmol/L (137-145)
[2024-01-13 05:50] VITALS: BP 116/40; PULSE 66; RESP 16; TEMP 36.1; O2SAT 98
[2024-01-13] MEDS: LEVOTHYROXINE SODIUM 50 MCG TABLET PO (05:51)
[2024-01-13] MEDS: SODIUM CHLORIDE 0.9% IV 1,000 ML 125 ML IV CONT (07:33)
[2024-01-13 08:15] LABS: Glucose Point of Care 85 mg/dl (65-105)
[2024-01-13] MEDS: MAGNESIUM OXIDE 400 MG TABLET PO (08:34)
[2024-01-13] MEDS: PANTOPRAZOLE 40 MG TABLET PO (08:34)
[2024-01-13] MEDS: PARoxetine 20 MG TABLET PO (08:34)
[2024-01-13] MEDS: DIPHENOXYLATE/ATROPINE (*CRX) 2.5 MG TABLET 1 TABLET PO (08:34)
[2024-01-13] MEDS: CHOLESTYRAMINE LIGHT 4 GM POWD.PACK PO (10:03)
--- NOTE | 2024-01-13 11:30 | WPDGIPROGNO ---
Progress Note: A&P Assessment and Plan (1) Increased ileostomy output: Code(s): R19.8 - Other specified symptoms and signs involving the digestive system and abdomen; Z93.2 - Ileostomy status Status: Resolved Assessment and Plan: started on questran daily and also lomotil as needed if still more than normal output will discontinue magnesium that was started since Mg level is ok- this can cause more diarrhea dehydration/ankur resolved, creatinine down to 1 stool negative for infection pending serology for celiac and pancreatic elastase stool home soon will follow as needed (2) Dehydration: Code(s): E86.0 - Dehydration Status: Acute Assessment and Plan: resolved (3) Acute kidney injury superimposed on CKD: Code(s): N17.9 - Acute kidney failure, unspecified; N18.9 - Chronic kidney disease, unspecified Status: Resolved Assessment and Plan: back to baseline (4) Diarrhea: Code(s): R19.7 - Diarrhea, unspecified Status: Acute Subjective Date/time seen: 01/13/24 11:30 Interval history: no changes, she is eating Review of Systems Review of Systems: All systems reviewed & are unremarkable except as noted in HPI and below Exam Const: General: comfortable and no acute distress HENMT: Face/Nose/Sinus: Normal nares present Eyes: General: appearance normal, both eyes and all related structures Neck: Neck: no JVD Resp: Auscultation: clear to auscultation bilaterally Cardio: Rate: regular rate Rhythm: regular rhythm GI: Inspection: non-distended GI Palp: Yes Soft to palpation and No Tenderness to palpation present (GI) Auscultation: normal bowel sounds Other: ileostomy bag Skin: General skin exam: normal color Neuro: Speech: normal speech Motor exam (neuro): 5/5 motor strength present throughout Extrem: General: normal to inspection Psych: Mental Status: mental status grossly normal Objective Data Vital Signs Vital Signs: Vital Signs - 24 hr 01/12/24 11:55 01/12/24 12:00 01/12/24 16:45 Temperature 97.7 F 98 F Pulse Rate 67 73 69 Respiratory Rate 20 20 Blood Pressure 131/51 L 126/59 L Pulse Oximetry 96 98 Oxygen Delivery 01/12/24 19:45 01/12/24 20:50 01/13/24 00:16 Temperature 97 F L 97.6 F Pulse Rate 67 65 Respiratory Rate 16 14 Blood Pressure 119/48 L 115/45 L Pulse Oximetry 97 99 Oxygen Delivery Room Air 01/13/24 05:50 01/13/24 08:30 Temperature 97 F L Pulse Rate 66 Respiratory Rate 16 Blood Pressure 116/40 L Pulse Oximetry 98 Oxygen Delivery Room Air Intake/Output Intake/Output: Intake & Output 01/10/24 01/11/24 01/12/24 01/13/24 23:59 23:59 23:59 23:59 Intake Total 4004.6 6370.8 4047.1 1590 Output Total 1927 550 Balance 2077.6 5820.8 4047.1 1590 Meds/Results Medications: Active Medications Generic Name Dose Route Start Last Admin Trade Name Freq PRN Reason Stop Dose Admin Acetaminophen 650 mg 01/09/24 21:57 Acetaminophen 325 Mg Tablet PO Q4H PRN Mild Pain (1-3) or Fever Albuterol 1 puff 01/10/24 05:10 Albuterol Sulfate (*Sp) Aerosol 1 Puff INHALATION Q4HRT PRN shortness of breath or wheezing Cholestyramine Resin 4 gm 01/11/24 10:00 01/13/24 10:03 Cholestyramine Light 4 Gm Powd.Pack PO 4 gm QAM@1000 GAUTAM Administration Dextrose 12.5 gm 01/11/24 08:03 Dextrose 50% 25 Gm/50 Ml Syringe IV PUSH PRN PRN Hypoglycemia Protocol Diphenhydramine HCl 25 mg 01/11/24 18:03 01/12/24 20:52 Diphenhydramine Hcl Cap 25 Mg Capsule PO 25 mg Q6H PRN Administration Itching Diphenoxylate HCl/Atropine 1 tablet 01/10/24 17:10 01/13/24 08:34 Diphenoxylate/Atropine (*Crx) 2.5 Mg Tablet PO 1 tablet PRN PRN Administration Diarrhea Fluticasone Propionate 2 spray 01/10/24 05:10 01/10/24 08:39 Fluticasone Propionate 0.05% Na Spr 16 Gm Btl (*Bkc) NASAL 2 spray DAILY PRN Administration nasal congestion Glucagon 1 mg 01/11/24 08:03 Glucagon For Inj 1 Mg Vial IM PRN PRN Hypoglycemia Protocol Glucose 15 gm 01/11/24 08:03 Glucose Oral Gel 15 Gm Of Glucse In 37.5 Gm Tube PO PRN PRN Hypoglycemia Protocol Sodium Chloride 1,000 mls @ 125 mls/hr 01/09/24 22:00 01/13/24 07:33 Normal Saline Iv IV CONT 125 mls/hr .Q8H GAUTAM Administration Dextrose 1,000 mls @ 100 mls/hr 01/11/24 08:03 Dextrose 5% 1,000 Ml IVPB PRN PRN Hypoglycemia Protocol Insulin Aspart 2 - 5 units 01/11/24 08:00 01/13/24 08:27 Insulin Aspart (*Bkc) 100 Units/Ml SUB-Q Not Given TIDWM GAUTAM Protocol Levothyroxine Sodium 50 mcg 01/10/24 06:30 01/13/24 05:51 Levothyroxine Sodium 50 Mcg Tablet PO 50 mcg DAILY@0630 GAUTAM Administration Ondansetron HCl 4 mg 01/09/24 21:57 Ondansetron Inj 4 Mg/2 Ml Vial IV PUSH Q4H PRN Nausea Pantoprazole Sodium 40 mg 01/10/24 09:00 01/13/24 08:34 Pantoprazole 40 Mg Tablet PO 02/09/24 08:59 40 mg DAILY GAUTAM Administration Paroxetine HCl 20 mg 01/10/24 09:00 01/13/24 08:34 Paroxetine 20 Mg Tablet PO 20 mg QAM GAUTAM Administration Perflutren Lipid Microsphere 0 ml 01/10/24 15:12 Perflutren Lipid Microspheres 1.5 Ml Vial Diluted To 10 Ml Total Volume IV PUSH 01/13/24 15:13 ONCE PRN adequate visualization Protocol Radiology Results: ITS Impressions Chest X-Ray 01/09/24 20:05 IMPRESSION: No acute cardiopulmonary pathology. Labs Labs: Laboratory Results - last 24 hr 01/12/24 01/12/24 01/12/24 11:59 16:41 19:49 WBC RBC Hgb Hct MCV MCH MCHC RDW Plt Count MPV Sodium Potassium Chloride Carbon Dioxide Anion Gap BUN Creatinine Estim Creat Clear Calc Estimated GFR Glucose POC Capillary Glucose 88 101 133 H Calcium Total Bilirubin AST ALT Alkaline Phosphatase Total Protein Albumin 01/13/24 01/13/24 05:02 08:11 WBC 3.8 L RBC 2.99 L Hgb 8.5 L Hct 27.0 L MCV 90.3 MCH 28.4 MCHC 31.5 L RDW 14.0 Plt Count 184 MPV 9.8 Sodium 139 Potassium 3.5 Chloride 113 H Carbon Dioxide 18 L Anion Gap 8 BUN 11 Creatinine 1.00 Estim Creat Clear Calc 49 Estimated GFR 55 L Glucose 88 POC Capillary Glucose 85 Calcium 8.6 Total Bilirubin 0.1 L AST 28 ALT 16 Alkaline Phosphatase 78 Total Protein 6.0 L Albumin 3.1 L
[2024-01-13 11:48] LABS: Glucose Point of Care 108 mg/dl (65-105)
[2024-01-13 12:00] VITALS: BP 113/56; PULSE 64; RESP 12; O2SAT 94
[2024-01-13] MEDS: ACETAMINOPHEN 325 MG TABLET 650 MG PO (12:36)
--- NOTE | 2024-01-13 13:44 | PM.IMPN ---
Progress Note: A&P Assessment and Plan (1) Acute kidney injury superimposed on CKD: Code(s): N17.9 - Acute kidney failure, unspecified; N18.9 - Chronic kidney disease, unspecified Status: Resolved Assessment and Plan: Started on fluid Her baseline varies from 1.6 this April, 4.0 in May, 3.1 in June, 0.9 in July and September, 4.0 in November Creatinine level has several spikes but continued getting better Nephrology is consulted (2) Ileostomy in place: Code(s): Z93.2 - Ileostomy status Status: Chronic Assessment and Plan: Recent increase in output. Denies any blood in the stool. started on questran daily lomotil as needed (3) Ulcerative colitis: Code(s): K51.90 - Ulcerative colitis, unspecified, without complications Status: Chronic Assessment and Plan: Status post total colectomy Consulted GI (4) Gastroesophageal reflux disease: Qualifiers: Esophagitis presence: without esophagitis Qualified Code(s): K21.9 - Gastro-esophageal reflux disease without esophagitis Code(s): K21.9 - Gastro-esophageal reflux disease without esophagitis Status: Acute (5) Type 2 diabetes mellitus: Code(s): E11.9 - Type 2 diabetes mellitus without complications Status: Acute Assessment and Plan: Holding metformin (6) Dehydration: Code(s): E86.0 - Dehydration Status: Acute Assessment and Plan: Secondary to increased ileostomy output Receiving NS (7) Obstructive sleep apnea on CPAP: Code(s): G47.33 - Obstructive sleep apnea (adult) (pediatric); Z99.89 - Dependence on other enabling machines and devices Status: Acute Assessment and Plan: CPAP at nighttime (8) Hyponatremia: Code(s): E87.1 - Hypo-osmolality and hyponatremia Status: Acute Assessment and Plan: Likely secondary to GI losses (9) Increased ileostomy output: Code(s): R19.8 - Other specified symptoms and signs involving the digestive system and abdomen; Z93.2 - Ileostomy status Status: Resolved Assessment and Plan: Receiving NS (10) UTI (urinary tract infection): Code(s): N39.0 - Urinary tract infection, site not specified Status: Acute Assessment and Plan: KENDELL Valeroit cultures Subjective Date/time seen: 09/15/24 13:44 Interval history: patient output has mildly decreased after receiving Lomotil. tomorrow will discuss with Dr. Moya in discharging the patient with Questran and Lomotil And follow-up with him as an outpatient. Patient is on regular diet tolerating well . Review of Systems Review of Systems: Increased ileostomy output, generalized weakness Exam Narrative: Patient is laying in a bed Const: General: comfortable, no acute distress, well developed, alert, awake, ill appearing, overweight and other (Generalized pallor) Nutritional Appearance: overweight Orientation/consciousness: patient oriented x3 HENMT: Head: normal to inspection, normocephalic and atraumatic Ears: hearing grossly normal bilaterally Face/Nose/Sinus: normal facial exam Face and sinus: normal facial exam Eyes: General: appearance normal, both eyes and all related structures Pupils: Equal, round and reactive pupils present EOM: EOMs intact bilaterally Neck: Neck: full ROM, no lymphadenopathy and no JVD Thyroid: thyroid normal Lymphatic: no lymphadenopathy noted Resp: Effort & Inspection: normal respiratory effort and able to speak in complete sentences Auscultation: clear to auscultation bilaterally Cardio: Jugular venous distension: no JVD Rate: regular rate Rhythm: regular rhythm Heart sounds: S1 normal heart sound present and S2 normal heart sound present GI: Inspection: other (Ileostomy in place) : General: Yes deferred Skin: Rashes: no rashes Wounds: no wounds Neuro: General: patient oriented x3 and CN's II-XI intact bilaterally Cranial nerves: Yes CN's II-XII intact bilaterally and Yes Equal, round and reactive pupils present Cognition (Neuro): normal cognition Speech: normal speech Gait exam (Neuro): Normal gait present Motor exam (neuro): 5/5 motor strength present throughout Extrem: General: normal to inspection, full ROM, no joint enlargement and no pedal edema Objective Data Vital Signs Vital Signs: Vital Signs - 24 hr 01/12/24 16:45 01/12/24 19:45 01/12/24 20:50 Temperature 98 F 97 F L Pulse Rate 69 67 Respiratory Rate 20 16 Blood Pressure 126/59 L 119/48 L Pulse Oximetry 98 97 Oxygen Delivery Room Air 01/13/24 00:16 01/13/24 05:50 01/13/24 08:30 Temperature 97.6 F 97 F L Pulse Rate 65 66 Respiratory Rate 14 16 Blood Pressure 115/45 L 116/40 L Pulse Oximetry 99 98 Oxygen Delivery Room Air 01/13/24 12:00 Temperature Pulse Rate 64 Respiratory Rate 12 Blood Pressure 113/56 L Pulse Oximetry 94 Oxygen Delivery Intake/Output Intake/Output: Intake & Output 01/10/24 01/11/24 01/12/24 01/13/24 23:59 23:59 23:59 23:59 Intake Total 4004.6 6370.8 4047.1 1830 Output Total 1927 550 Balance 2077.6 5820.8 4047.1 1830 Meds/Results Medications: Active Medications Generic Name Dose Route Start Last Admin Trade Name Freq PRN Reason Stop Dose Admin Acetaminophen 650 mg 01/09/24 21:57 01/13/24 12:36 Acetaminophen 325 Mg Tablet PO 650 mg Q4H PRN Administration Mild Pain (1-3) or Fever Albuterol 1 puff 01/10/24 05:10 Albuterol Sulfate (*Sp) Aerosol 1 Puff INHALATION Q4HRT PRN shortness of breath or wheezing Cholestyramine Resin 4 gm 01/11/24 10:00 01/13/24 10:03 Cholestyramine Light 4 Gm Powd.Pack PO 4 gm QAM@1000 GAUTAM Administration Dextrose 12.5 gm 01/11/24 08:03 Dextrose 50% 25 Gm/50 Ml Syringe IV PUSH PRN PRN Hypoglycemia Protocol Diphenhydramine HCl 25 mg 01/11/24 18:03 01/12/24 20:52 Diphenhydramine Hcl Cap 25 Mg Capsule PO 25 mg Q6H PRN Administration Itching Diphenoxylate HCl/Atropine 1 tablet 01/10/24 17:10 01/13/24 08:34 Diphenoxylate/Atropine (*Crx) 2.5 Mg Tablet PO 1 tablet PRN PRN Administration Diarrhea Fluticasone Propionate 2 spray 01/10/24 05:10 01/10/24 08:39 Fluticasone Propionate 0.05% Na Spr 16 Gm Btl (*Bkc) NASAL 2 spray DAILY PRN Administration nasal congestion Glucagon 1 mg 01/11/24 08:03 Glucagon For Inj 1 Mg Vial IM PRN PRN Hypoglycemia Protocol Glucose 15 gm 01/11/24 08:03 Glucose Oral Gel 15 Gm Of Glucse In 37.5 Gm Tube PO PRN PRN Hypoglycemia Protocol Sodium Chloride 1,000 mls @ 125 mls/hr 01/09/24 22:00 01/13/24 07:33 Normal Saline Iv IV CONT 125 mls/hr .Q8H GAUTAM Administration Dextrose 1,000 mls @ 100 mls/hr 01/11/24 08:03 Dextrose 5% 1,000 Ml IVPB PRN PRN Hypoglycemia Protocol Insulin Aspart 2 - 5 units 01/11/24 08:00 01/13/24 12:00 Insulin Aspart (*Bkc) 100 Units/Ml SUB-Q Not Given TIDWM GAUTAM Protocol Levothyroxine Sodium 50 mcg 01/10/24 06:30 01/13/24 05:51 Levothyroxine Sodium 50 Mcg Tablet PO 50 mcg DAILY@0630 GAUTAM Administration Ondansetron HCl 4 mg 01/09/24 21:57 Ondansetron Inj 4 Mg/2 Ml Vial IV PUSH Q4H PRN Nausea Pantoprazole Sodium 40 mg 01/10/24 09:00 01/13/24 08:34 Pantoprazole 40 Mg Tablet PO 02/09/24 08:59 40 mg DAILY GAUTAM Administration Paroxetine HCl 20 mg 01/10/24 09:00 01/13/24 08:34 Paroxetine 20 Mg Tablet PO 20 mg QAM GAUTAM Administration Perflutren Lipid Microsphere 0 ml 01/10/24 15:12 Perflutren Lipid Microspheres 1.5 Ml Vial Diluted To 10 Ml Total Volume IV PUSH 01/13/24 15:13 ONCE PRN adequate visualization Protocol Radiology Results: ITS Impressions Chest X-Ray 01/09/24 20:05 IMPRESSION: No acute cardiopulmonary pathology. Labs Labs: Laboratory Results - last 24 hr 01/12/24 01/12/24 01/13/24 16:41 19:49 05:02 WBC 3.8 L RBC 2.99 L Hgb 8.5 L Hct 27.0 L MCV 90.3 MCH 28.4 MCHC 31.5 L RDW 14.0 Plt Count 184 MPV 9.8 Sodium 139 Potassium 3.5 Chloride 113 H Carbon Dioxide 18 L Anion Gap 8 BUN 11 Creatinine 1.00 Estim Creat Clear Calc 49 Estimated GFR 55 L Glucose 88 POC Capillary Glucose 101 133 H Calcium 8.6 Total Bilirubin 0.1 L AST 28 ALT 16 Alkaline Phosphatase 78 Total Protein 6.0 L Albumin 3.1 L 01/13/24 01/13/24 08:11 11:45 WBC RBC Hgb Hct MCV MCH MCHC RDW Plt Count MPV Sodium Potassium Chloride Carbon Dioxide Anion Gap BUN Creatinine Estim Creat Clear Calc Estimated GFR Glucose POC Capillary Glucose 85 108 H Calcium Total Bilirubin AST ALT Alkaline Phosphatase Total Protein Albumin Hospitalist MIPS Advance Care Plan I have confirmed that the patient's Advanced Care Plan is present, code status is documented, or surrogate decision maker is listed in patient medical record.: Yes Medication Reconciliation I have utilized all available resources to obtain, update and review the patients current medications (includes all prescriptions, OTC, herbals, cannabis, and nutritional supplements).: Yes
[2024-01-13 15:32] VITALS: O2SAT 93
[2024-01-13 16:00] VITALS: BP 125/46; PULSE 66; RESP 12; TEMP 36.7; O2SAT 93
[2024-01-13 17:13] LABS: Glucose Point of Care 119 mg/dl (65-105)
[2024-01-13 20:00] VITALS: BP 128/74; PULSE 85; RESP 14; TEMP 36.2; O2SAT 99
[2024-01-13 20:37] LABS: Glucose Point of Care 110 mg/dl (65-105)
[2024-01-13] MEDS: diphenhydrAMINE HCl CAP 25 MG CAPSULE PO (21:54)
[2024-01-14] VITALS: BP 121/48; PULSE 64; RESP 12; TEMP 36.3; O2SAT 97
[2024-01-14 04:00] VITALS: BP 119/50; PULSE 67; RESP 13; TEMP 37.3; O2SAT 96
[2024-01-14] MEDS: LEVOTHYROXINE SODIUM 50 MCG TABLET PO (05:16)
[2024-01-14 06:09] LABS: Hematocrit 28.2 % (37.0-47.0); Mean Corpuscular HGB Conc 31.9 g/dl (32-36); Mean Corpuscular Hemoglobin 28.7 pg (26-34); Mean Corpuscular Volume 89.8 fl (80-100); Platelet Count Result 203 k/mm3 (150-375); Red Blood Count 3.14 M/mm3 (4.2-5.4); Red Cell Distribution Width 14.2 % (11.5-14.5); White Blood Count 3.8 K/mm3 (4.5-10.0)
[2024-01-14 06:36] LABS: Alanine Aminotransferase 22 U/L (6-35); Albumin Level 3.1 g/dL (3.5-5.1); Alkaline Phosphatase 85 U/L (38-126); Anion Gap 10 mmol/L (4-12); Aspartate Amino Transferase 37 U/L (14-36); Bilirubin,Total 0.3 mg/dL (0.2-1.3); Blood Urea Nitrogen 10 mg/dL (7-17); Calcium 8.6 mg/dL (8.4-10.2); Carbon Dioxide 17 mmol/L (22-30); Chloride 114 mmol/L (98-107); Estimated CRCL calculation 44 ml/min; Estimated Glomerular Filt Rate 49; Glucose 88 mg/dL (65-110); Potassium 3.6 mmol/L (3.4-5.0); Sodium 141 mmol/L (137-145)
--- NOTE | 2024-01-14 07:25 | P.DS_ITS ---
DS: Admitting Diagnosis Discharge Date 01/14/2024 Admitting Diagnosis Dehydration, Hypomagnesemia DS: Discharge Diagnosis Discharge Diagnosis (1) Acute kidney injury superimposed on CKD: Code(s): N17.9 - Acute kidney failure, unspecified; N18.9 - Chronic kidney disease, unspecified Status: Resolved Assessment and Plan: Started on fluid Her baseline varies from 1.6 this April, 4.0 in May, 3.1 in June, 0.9 in July and September, 4.0 in November Creatinine level has several spikes but continued getting better Nephrology is consulted (2) Ileostomy in place: Code(s): Z93.2 - Ileostomy status Status: Chronic Assessment and Plan: Recent increase in output. Denies any blood in the stool. started on questran daily lomotil as needed (3) Ulcerative colitis: Code(s): K51.90 - Ulcerative colitis, unspecified, without complications Status: Chronic Assessment and Plan: Status post total colectomy Consulted GI (4) Gastroesophageal reflux disease: Qualifiers: Esophagitis presence: without esophagitis Qualified Code(s): K21.9 - Gastro-esophageal reflux disease without esophagitis Code(s): K21.9 - Gastro-esophageal reflux disease without esophagitis Status: Acute (5) Type 2 diabetes mellitus: Code(s): E11.9 - Type 2 diabetes mellitus without complications Status: Acute Assessment and Plan: Holding metformin (6) Dehydration: Code(s): E86.0 - Dehydration Status: Acute Assessment and Plan: Secondary to increased ileostomy output Receiving NS (7) Obstructive sleep apnea on CPAP: Code(s): G47.33 - Obstructive sleep apnea (adult) (pediatric); Z99.89 - Dependence on other enabling machines and devices Status: Acute Assessment and Plan: CPAP at nighttime (8) Hyponatremia: Code(s): E87.1 - Hypo-osmolality and hyponatremia Status: Acute Assessment and Plan: Likely secondary to GI losses (9) Increased ileostomy output: Code(s): R19.8 - Other specified symptoms and signs involving the digestive system and abdomen; Z93.2 - Ileostomy status Status: Resolved Assessment and Plan: Receiving NS (10) UTI (urinary tract infection): Code(s): N39.0 - Urinary tract infection, site not specified Status: Acute Assessment and Plan: DC Rocephin Await cultures DS: Summary Hospital Course Hospital Course: ED Course: Patient 73-year-old female who presents emergency department with chief complaint of lightheadedness and dizziness. Patient reports that she was seen in the emergency department several days ago after she had had increased output of her ileostomy the patient received IV fluids and received IV magnesium and was feeling better when she left the emergency department but the patient reports the next morning she started feeling lightheaded again and reports she has had continual high output from her ileostomy. The patient denies fever denies abdominal pain reports that she feels lightheaded whenever she stands up Interval history 01/10/2024: Patient reports past 6 months she has a episodes of dehydration and dizziness and visited multiple times in the ER but unfortunately no clear diagnosis was given. Patient reports of limitation of activity. Patient received 3 L of bolus at ED and 1 L of bolus in the floor due to hypotension. Currently her blood pressure is 105 /38. 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 have any signs of hypotension like dizziness or headache.Patient has a past medical history of ulcerative colitis. Recently her ileostomy output has been increased. Patient denies any blood in the stool. GI is consulted to rule out exacerbation of ulcerative colitis. Echocardiogram has been performed to rule out any CHF. ECHO: Summary 1. Complete two-dimensional, color flow and Doppler transthoracic echocardiogram is performed. 2. Left ventricular chamber dimension is normal. 3. Left ventricular systolic function is normal, estimated at 60-65%. 4. The left ventricular diastolic function is abnormal. 5. E/e' 11 is mildly elevated. 6. There is mild mitral valve regurgitation. 7. There is trace tricuspid valve regurgitation. 8. No pulmonary hypertension, estimated pulmonary arterial systolic pressure is 25 mmHg. GI evaluated on 01/10/2024: remote h/o total colectomy with ileostomy ? component of short bowel but denies any other more surgeries will add lomotil, already on ppi stool sample in past negative for infection also check elastase in stool Her baseline varies from 1.6 this April, 4.0 in May, 3.1 in June, 0.9 in July and September, 4.0 in November Creatinine level has several spikes but continued getting better. Fluid has been stopped. Advised oral hydration. Patient is currently on regular diet. GI started the patient on Questran Daily and Lomotil as needed. patient continues to feel better. We we advised to continue the Questran daily and follow up closely with the GI for her ulcerative colitis. Patient's stool elastase is pending but discussed the case with Dr. Moya who agrees with the discharge and follow-up within a week for the results and continue Questran. Status at Discharge Cognitive/behavioral status at discharge: Stable Time Spent with Patient Time attestation: Total time spent providing and/or coordinating discharge services: 45 minutes Exam Narrative: Patient is laying in a bed Const: General: comfortable, no acute distress, well developed, alert, awake, ill appearing, overweight and other (Generalized pallor) Nutritional Appearance: overweight Orientation/consciousness: patient oriented x3 HENMT: Head: normal to inspection, normocephalic and atraumatic Ears: hearing grossly normal bilaterally Face/Nose/Sinus: normal facial exam Face and sinus: normal facial exam Eyes: General: appearance normal, both eyes and all related structures Pupils: Equal, round and reactive pupils present EOM: EOMs intact bilaterally Neck: Neck: full ROM, no lymphadenopathy and no JVD Thyroid: thyroid normal Lymphatic: no lymphadenopathy noted Resp: Effort & Inspection: normal respiratory effort and able to speak in complete sentences Auscultation: clear to auscultation bilaterally Cardio: Jugular venous distension: no JVD Rate: regular rate Rhythm: regular rhythm Heart sounds: S1 normal heart sound present and S2 normal hear t sound present GI: Inspection: other (Ileostomy in place) : General: Yes deferred Skin: Rashes: no rashes Wounds: no wounds Neuro: General: patient oriented x3 and CN's II-XI intact bilaterally Cranial nerves: Yes CN's II-XII intact bilaterally and Yes Equal, round and reactive pupils present Cognition (Neuro): normal cognition Speech: normal speech Gait exam (Neuro): Normal gait present Motor exam (neuro): 5/5 russell r strength present throughout Extrem: General: normal to inspection, full ROM, no joint enlargement and no pedal edema DS: Data Data Completed and Pending Labs on day of discharge: Labs from last 24 hours 01/14/24 01/13/24 01/13/24 05:16 20:31 17:08 WBC 3.8 L RBC 3.14 L Hgb 9.0 L Hct 28.2 L MCV 89.8 MCH 28.7 MCHC 31.9 L RDW 14.2 Plt Count 203 MPV 10.0 Sodium 141 Potassium 3.6 Chloride 114 H Carbon Dioxide 17 L Anion Gap 10 BUN 10 Creatinine 1.10 H Estim Creat Clear Calc 44 Estimated GFR 49 L Glucose 88 POC Capillary Glucose 110 H 119 H Calcium 8.6 Total Bilirubin 0.3 AST 37 H ALT 22 Alkaline Phosphatase 85 Total Protein 6.0 L Albumin 3.1 L 01/13/24 01/13/24 11:45 08:11 WBC RBC Hgb Hct MCV MCH MCHC RDW Plt Count MPV Sodium Potassium Chloride Carbon Dioxide Anion Gap BUN Creatinine Estim Creat Clear Calc Estimated GFR Glucose POC Capillary Glucose 108 H 85 Calcium Total Bilirubin AST ALT Alkaline Phosphatase Total Protein Albumin Imaging Radiologist's impression: ITS Impressions Chest X-Ray 01/09/24 20:05 IMPRESSION: No acute cardiopulmonary pathology. Discharge Plan Discharge Attending physician on discharge: Arron Quiroz Consulting providers: Alberto Rowe Discharging Clinician: Arron Quiroz Patient Disposition: Home, Self-Care Activity: as tolerated Diet: regular Patient Instructions: Antibiotic Form, Dehydration (GEN), Acute Kidney Injury (GEN) Stand Alone Forms: General Discharge Information Follow-up/Referrals: Alberto Rowe MD [Physician] - 1 Week (Follow-up with Dr. Moya. Pending stool elastase and advised to continue Questran.) Jono Rosales MD [Primary Care Provider] - Discharge Medications: New cholestyramine-aspartame [Prevalite] 4 gram Powder In Packet 4 g PO QAM@1000 Qty: 60 0RF Continued multivitamin [Daily Multi-Vitamin] Tablet 1 tablet PO DAILY albuterol sulfate [ProAir HFA] 90 mcg/actuation HFA aerosol inhaler 1 inh inhalation Q4H PRN (Reason: shortness of breath or wheezing) Qty: 6.7 3RF cyanocobalamin (vitamin B-12) [Vitamin B-12] 500 mcg tablet 500 mcg PO DAILY lisinopril 5 mg tablet 5 mg PO DAILY omega [id number]-sij-fish oil [Fish Oil] 1,200 (144-216) mg Capsule 1 cap PO BID cholecalciferol (vitamin D3) [Vitamin D3] 10 mcg (400 unit) Capsule 10 mcg PO DAILY levothyroxine 50 mcg tablet 50 mcg PO DAILY rosuvastatin 40 mg tablet 40 mg PO DAILY ondansetron 4 mg tablet,disintegrating 4 mg PO Q8H PRN (Reason: nausea and vomiting) Qty: 10 0RF magnesium oxide 400 mg magnesium tablet 400 mg PO BID 10 Days Qty: 20 0RF fluticasone propionate [Flonase Allergy Relief] 50 mcg/actuation [place],Suspension 1 spray INTRANASAL Q12H PRN (Reason: Allergy Symptoms) Rx Instructions: administer into each nostril esomeprazole magnesium [Nexium] 40 mg capsule,delayed release(DR/EC) 40 mg PO DAILY Qty: 90 3RF Rx Instructions: Tried and failed omeprazole metformin 500 mg tablet 500 mg PO DAILY Qty: 90 2RF paroxetine HCl 20 mg tablet 20 mg PO QAM Qty: 90 0RF Date of admission: 01/12/24 16:38 Primary Care Provider: Jono Rosales Admitting Provider: Thania Bartholomew V. Attending physician on admission: Thania Bartholomew V. Condition: Stable
[2024-01-14 08:14] LABS: Glucose Point of Care 90 mg/dl (65-105)
[2024-01-14] MEDS: PANTOPRAZOLE 40 MG TABLET PO (10:50)
[2024-01-14] MEDS: PARoxetine 20 MG TABLET PO (10:50)
[2024-01-14 16:39] LABS: Tissue Transglutaminase IgA Ab <1.0 U/mL; Tissue Transglutaminase IgG Ab <1.0 U/mL
[2024-01-18 18:54] LABS: Pancreatic Elastase, Stool 476 mcg/g
== END 2024-01-14 11:00 | disposition home or self-care (01) | DRG 641 ==
LOC: ANHED 21:57 → ANHIMU 22:39 → ANH2MED 01-11 10:56
PROVIDERS: Internal Medicine Gastroenterology; Internal Medicine Nephrology; Admitting Provider Internal Medicine; Emergency Provider Emergency Medicine; PCP Family Medicine; Visit Provider General Practice
DX: E86.0 Dehydration (principal); N39.0 Urinary tract infection, site not specified; K51.90 Ulcerative colitis, unspecified, without complications; E87.1 Hypo-osmolality and hyponatremia; N18.30 Chronic kidney disease, stage 3 unspecified; I95.9 Hypotension, unspecified; R19.7 Diarrhea, unspecified; E83.42 Hypomagnesemia; E11.22 Type 2 diabetes mellitus with diabetic chronic kidney disease; E78.5 Hyperlipidemia, unspecified; E03.9 Hypothyroidism, unspecified; G47.33 Obstructive sleep apnea (adult) (pediatric); K21.9 Gastro-esophageal reflux disease without esophagitis; Z96.642 Presence of left artificial hip joint; Z96.652 Presence of left artificial knee joint; Z87.891 Personal history of nicotine dependence; Z93.2 Ileostomy status; Z90.49 Acquired absence of other specified parts of digestive tract
CPT/HCPCS: 36415; 71046; 80048; 80053; 81001; 82653; 82948; 83605; 83690; 83735; 84145; 84484; 85025; 85027; 86364; 87045; 87086; 87088; 87427; 87449; 87493; 93005; 93306; 96361; 96365; 96375; 96376; 99285; A9270; G0378; J0696; J2405; J7030